=== PATIENT | female | born 1945 | race Two or more races ===

== ENCOUNTER 2016-11-21 12:31 | Emergency (ER) | payer OTHER ==
[~2016-11-21] VITALS: Ht 162.6 cm; Wt 81.2 kg
[~2016-11-21 12:31] MED LIST: ALBU18HF2 INH; GLIM2TAB2 PO; METF10002 PO
[2016-11-21] MEDS ORDERED: IV SET PRIMARY PUMP SET 1 EA INFUS.SET MC ONE (12:57)
[2016-11-21] MEDS ORDERED: IV NS 0.9% 1,000 ML ONE (12:57)
[2016-11-21 13:00] LABS: BASOPHILS # (AUTO) 0.3 /CMM (0.0-0.2); DIFF TOTAL % 100 %; EOSINOPHILS # (AUTO) 0.1 /CMM (0.0-0.7); EOSINOPHILS % (AUTO) 1.2 % (0.0-6.0); HEMATOCRIT 35 % (33-45); HEMOGLOBIN 11.4 g/dL (11.5-14.8); LYMPHOCYTES # (AUTO) 1.2 /CMM (0.8-4.8); LYMPHOCYTES % (AUTO) 14.2 % (20.0-44.0); MEAN CORPUSCULAR HEMOGLOBIN 28 PG (26.0-33.0); MEAN CORPUSCULAR HGB CONC 32 g/dl (31.0-36.0); MEAN CORPUSCULAR VOLUME 87 fL (82-100); MONOCYTES # (AUTO) 0.6 /CMM (0.1-1.30); MONOCYTES % (AUTO) 6.6 % (2.0-12.0); NEUTROPHILS # (AUTO) 6.4 /CMM (1.8-8.9); PLATELET COUNT (AUTO) 223 /CMM (150-450); RED BLOOD CELL COUNT(AUTO) 4.05 MIL/uL (4.0-5.2); WHITE BLOOD COUNT (AUTO) 8.6 K/uL (4.3-11.0)
[2016-11-21] MEDS ORDERED: IV NS 0.9% 1,000 ML BAG IV ONE (13:00)
[2016-11-21 13:10] LABS: ANION GAP 14 (5-14); CARBON DIOXIDE 26 mmol/L (21-32); CHLORIDE 96 mmol/L (98-107); CREATININE 0.8 mg/dL (0.6-1.3); GLUCOSE 227 mg/dL (74-106); POTASSIUM 4.8 mmol/L (3.5-5.1); SODIUM SERUM 132 mmol/L (136-145); UREA NITROGEN, BLOOD 15 mg/dL (7-18)
[2016-11-21 13:15] LABS: ALANINE AMINOTRANSFERASE 35 U/L (12-78); ALBUMIN 2.2 g/dL (3.4-5.0); ASPARTATE AMINOTRANSFERASE 47 U/L (15-37); BILIRUBIN,DIRECT 0.5 mg/dL (0.0-0.2); BILIRUBIN,TOTAL 1.1 mg/dL (0.2-1.0); INDIRECT BILIRUBIN 0.6 mg/dL (0.0-1.1); TOTAL PROTEIN, SERUM 8.2 g/dL (6.4-8.2)
[2016-11-21 13:18] LABS: TROPONIN I < 0.017 ng/mL (0.00-0.056)
[2016-11-21 13:26] LABS: INR 1.17 (0.87-1.13); PROTHROMBIN TIME 12.3 SECS (9.5-12.7)
[2016-11-21 13:36] LABS: LACTIC ACID 2.3 mmol/L (0.4-2.0)
[2016-11-21 13:47] LABS: KETONES,URINE TRACE (NEGATIVE); LEUKOCYTE ESTERASE ,URINE TRACE (NEGATIVE)
[2016-11-21 13:51] LABS: ADD UA MICROSCOPIC YES
[2016-11-21 13:55] LABS: ADD URINE CULTURE NO
[2016-11-21 13:56] LABS: *LACTIC ACID REFLEX FLAG YES
[2016-11-21 13:56] LABS: HYALINE CASTS, URINE Few /LPF (None Seen); MUCUS,URINE Few /LPF (None Seen)
[2016-11-21 14:45] VITALS: BP 127/71
== END 2016-11-21 14:46 | disposition home or self-care (01) ==
LOC: ER 12:33
DX: R53.1 Weakness (principal); E11.9 Type 2 diabetes mellitus without complications; I10 Essential (primary) hypertension; R79.1 Abnormal coagulation profile; Z90.49 Acquired absence of other specified parts of digestive tract
CPT/HCPCS: 36415; 71010; 80048; 80076; 81001; 82962; 83605; 84484; 85025; 85730; 87040 ×2; 93005; 96360; 99285; A4606; J7030; Z7610; 81000-TC

== ENCOUNTER 2017-06-11 19:09 | Emergency (ER) | payer OTHER ==
[~2017-06-11] VITALS: Ht 160 cm; Wt 83.9 kg
--- NOTE | 2017-06-11 19:22 | NUR ---
PT AMBULATORY TO ER BED 12. C/O DIFFUSE ABDOMINAL PAIN W/ N/V X 5 DAYS AFTER RETURNING FROM [place]. PT TEMP WAS 102.4 DENTAL HYGIENIST MOBILE COORDINATOR. GOWNED AND PLACED ON MONITOR. NAD NOTED AWAITING MD BARRON.
--- NOTE | 2017-06-11 19:42 | NUR ---
DR WILL AT BEDSIDE FOR EVAL.
[2017-06-11] MEDS ORDERED: ACETAMINOPHEN ES 500 MG TABLET PO ONE (20:00)
[2017-06-11] MEDS ORDERED: MORPHINE SULFATE INJ 2 MG/ML DISP.SYRIN IV ONE (20:00)
[2017-06-11] MEDS ORDERED: ONDANSETRON HCL/PF 4 MG/2 ML VIAL IVP ONE (20:00)
[2017-06-11] MEDS ORDERED: IV NS 0.9% 1,000 ML BAG IV ONE (20:00)
--- NOTE | 2017-06-11 20:00 | NUR ---
IV LINE STARTED BLOOD DRAWN AND SENT TO LAB.
[2017-06-11] MEDS ORDERED: ONDANSETRON HCL/PF 4 MG/2 ML VIAL ONE (20:03)
[2017-06-11] MEDS ORDERED: MORPHINE SULFATE INJ 4 MG/ML DISP.SYRIN ONE ×2 (20:03→20:05)
[2017-06-11 20:04] LABS: BASOPHILS % (AUTO) 0.3 % (0.0-2.0); EOSINOPHILS % (AUTO) 0.4 % (0.0-6.0); HEMATOCRIT 34 % (33-45); HEMOGLOBIN 11.4 g/dL (11.5-14.8); LYMPHOCYTES # (AUTO) 0.7 /CMM (0.8-4.8); LYMPHOCYTES % (AUTO) 11.3 % (20.0-44.0); MEAN CORPUSCULAR HEMOGLOBIN 29 PG (26.0-33.0); MEAN CORPUSCULAR HGB CONC 33 g/dl (31.0-36.0); MEAN CORPUSCULAR VOLUME 88 fL (82-100); MONOCYTES # (AUTO) 0.3 /CMM (0.1-1.30); MONOCYTES % (AUTO) 4.9 % (2.0-12.0); NEUTROPHILS # (AUTO) 5.4 /CMM (1.8-8.9); NEUTROPHILS % (AUTO) 83.1 % (43.0-81.0); PLATELET COUNT (AUTO) 106 /CMM (150-450); RDW COEFFICIENT OF VARIATION 14.2 (11.5-15.0); RED BLOOD CELL COUNT(AUTO) 3.91 MIL/uL (4.0-5.2); WHITE BLOOD COUNT (AUTO) 6.4 K/uL (4.3-11.0)
[2017-06-11 20:14] LABS: CALCIUM, SERUM 8.6 mg/dL (8.5-10.1); CARBON DIOXIDE 29 mmol/L (21-32); CHLORIDE 97 mmol/L (98-107); CREATININE 1.3 mg/dL (0.6-1.3); GLUCOSE 280 mg/dL (74-106); SODIUM SERUM 134 mmol/L (136-145); UREA NITROGEN, BLOOD 14 mg/dL (7-18)
[2017-06-11 20:18] LABS: INR 1.18 (0.87-1.13); PROTHROMBIN TIME 12.4 SECS (9.5-12.7)
[2017-06-11 20:22] LABS: TROPONIN I < 0.017 ng/mL (0.00-0.056)
[2017-06-11 20:25] LABS: ALANINE AMINOTRANSFERASE 21 U/L (12-78); ALBUMIN 2.7 g/dL (3.4-5.0); ALKALINE PHOSPHATASE 57 U/L (46-116); ASPARTATE AMINOTRANSFERASE 30 U/L (15-37); BILIRUBIN,DIRECT 0.7 mg/dL (0.0-0.2); BILIRUBIN,TOTAL 1.6 mg/dL (0.2-1.0); TOTAL PROTEIN, SERUM 7.8 g/dL (6.4-8.2)
[2017-06-11] MEDS ORDERED: ACETAMINOPHEN ES 500 MG TABLET ONE (21:06)
[2017-06-11 22:23] LABS: APPEARANCE,URINE SL CLOUDY (CLEAR); BILIRUBIN,URINE 2+ (NEGATIVE); BLOOD, URINE 3+ Ery/uL (NEGATIVE); COLOR,URINE DARK YELLO (YELLOW); KETONES,URINE 1+ (NEGATIVE); LEUKOCYTE ESTERASE ,URINE NEGATIVE (NEGATIVE); NITRITE, URINE NEGATIVE (NEGATIVE); PH,URINE 6.5 (5.0-8.0); PROTEIN,URINE 2+ mg/dl (NEGATIVE); UGLUCOSE 2+ mg/dL (NEGATIVE)
--- NOTE | 2017-06-11 22:29 | NUR ---
U/S TECH AT BEDSIDE FOR GALLBLADDER U/S.
[2017-06-11 22:33] LABS: RBC,URINE 81-100 /HPF (0-2)
[2017-06-11 22:34] LABS: BACTERIA,URINE Rare /HPF (None Seen); SQUAMOUS EPITHELIAL CELL,UR Moderate /HPF (None Seen)
[2017-06-11 23:41] VITALS: BP 112/66
--- NOTE | 2017-06-11 23:41 | NUR ---
Patient discharged to home in stable condition. Written and verbal after care instructions given. Patient verbalizes understanding of instruction.IV removed. Catheter intact and site benign. Pressure and 4x4 applied to site. No bleeding noted.
== END 2017-06-11 23:42 | disposition home or self-care (01) ==
LOC: ER 19:13
DX: R10.84 Generalized abdominal pain (principal); E11.9 Type 2 diabetes mellitus without complications; I10 Essential (primary) hypertension; R31.29 Other microscopic hematuria; Z90.49 Acquired absence of other specified parts of digestive tract; Z90.710 Acquired absence of both cervix and uterus
CPT/HCPCS: 36415; 71010; 71250; 74176; 76705; 80048; 80076; 81001; 83605; 84484; 85025; 85730; 87040 ×2; 87086; 93005; 96361; 96374; 96375; 99285; A4606; J2270; J2405; J7030; J7040; Z7610; 81000-TC

== ENCOUNTER 2018-03-12 01:32 | Inpatient (IN) | payer OTHER ==
[~2018-03-12] VITALS: Ht 165.1 cm; Wt 83.5 kg
[2018-03-12] VITALS (11 sets, daily range): BP systolic 104–133; BP diastolic 51–79
[~2018-03-12 01:32] MED LIST changes: +METF-442 PO; -METF10002 PO
--- NOTE | 2018-03-12 01:44 | NUR ---
PT BIBFAMILY C/O GRADUAL ONSET SOB X NAUSEA X 2 WKS. PT AOX3 PUERTO RICAN SPEAKING. SON AT BEDSIDE FOR TRANSLATION. RR EVEN AND UNLABORED. NO SOB NOTED AT THIS TIME. PT NOTED AT 89% ON ROOM AIR, PLACED ON 2LPM VIA NC. PT GOWNED AND PLACED ON MONITOR. DR WILL AT BEDSIDE FOR EVAL.
[2018-03-12] MEDS ORDERED: ASPIRIN 325 MG TABLET ONE (01:58)
[2018-03-12] MEDS ORDERED: FUROSEMIDE 40 MG/4 ML VIAL ONE (01:58)
[2018-03-12] MEDS ORDERED: NITROGLYCERIN PACKET 1 GM PACKET ONE (01:58)
[2018-03-12] MEDS ORDERED: NITROGLYCERIN PACKET 1 GM PACKET TD ONE (02:00)
[2018-03-12] MEDS ORDERED: FUROSEMIDE 40 MG/4 ML VIAL IV ONE (02:00)
[2018-03-12] MEDS ORDERED: ASPIRIN 325 MG TABLET PO ONE (02:00)
--- NOTE | 2018-03-12 02:13 | NUR ---
RADIOLOGY AT BEDSIDE FOR CXR
[2018-03-12 02:30] LABS: BASOPHILS % (AUTO) 0.3 % (0.0-2.0); LYMPHOCYTES # (AUTO) 1.4 /CMM (0.8-4.8); LYMPHOCYTES % (AUTO) 12.4 % (20.0-44.0); MEAN CORPUSCULAR HGB CONC 34 g/dl (31.0-36.0); MEAN CORPUSCULAR VOLUME 89 fL (82-100); MONOCYTES # (AUTO) 0.5 /CMM (0.1-1.30); MONOCYTES % (AUTO) 4.9 % (2.0-12.0); NEUTROPHILS # (AUTO) 8.9 /CMM (1.8-8.9); NEUTROPHILS % (AUTO) 81.4 % (43.0-81.0); PLATELET COUNT (AUTO) 156 /CMM (150-450); RDW COEFFICIENT OF VARIATION 15.7 (11.5-15.0); RED BLOOD CELL COUNT(AUTO) 2.08 MIL/uL (4.0-5.2); WHITE BLOOD COUNT (AUTO) 10.9 K/uL (4.3-11.0)
[2018-03-12 02:36] LABS: HEMATOCRIT 19 % (33-45); HEMOGLOBIN 6.2 g/dL (11.5-14.8)
--- NOTE | 2018-03-12 02:36 | NUR ---
MIC ( [facility] ) [phone]
[2018-03-12 02:49] LABS: EOSINOPHILS % (MANUAL) 2 % (0-4); INR 1.06 (0.87-1.13); LYMPHOCYTES % (MANUAL) 11 % (16-48); MONOCYTES % (MANUAL) 3 % (0-11.0); NEUTROPHILS % (MANUAL) 84 (42-76)
--- NOTE | 2018-03-12 02:52 | NUR ---
LAB AT BEDSIDE FOR TYPE AND SCREEN DRAW
[2018-03-12 03:05] LABS: TROPONIN I < 0.017 ng/mL (0.00-0.056)
[2018-03-12 03:51] LABS: CARBON DIOXIDE 19 mmol/L (21-32); CHLORIDE 105 mmol/L (98-107); POTASSIUM 4.9 mmol/L (3.5-5.1); SODIUM SERUM 139 mmol/L (136-145)
[2018-03-12 03:52] LABS: CALCIUM, SERUM 8.8 mg/dL (8.5-10.1); CREATININE 5.3 mg/dL (0.6-1.3); UREA NITROGEN, BLOOD 62 mg/dL (7-18)
[2018-03-12 03:53] LABS: ALANINE AMINOTRANSFERASE 16 U/L (12-78); ALBUMIN 2.6 g/dL (3.4-5.0); ALKALINE PHOSPHATASE 48 U/L (46-116)
[2018-03-12 03:54] LABS: TOTAL PROTEIN, SERUM 7.7 g/dL (6.4-8.2)
--- NOTE | 2018-03-12 03:59 | NUR ---
DR. WILL SPOKE TO REDD GEETA REGARDING ADMISSION.
[2018-03-12 04:07] LABS: ASPARTATE AMINOTRANSFERASE 23 U/L (15-37); BILIRUBIN,DIRECT 0.3 mg/dL (0.0-0.2); BILIRUBIN,TOTAL 1.1 mg/dL (0.2-1.0); GLUCOSE 188 mg/dL (74-106)
--- NOTE | 2018-03-12 04:28 | NUR ---
1 UNIT PRBC TRANSFUSING ORDERED. PT PLACED ON MONITOR.
[2018-03-12 04:29] LABS: B-TYPE NATRIURETIC PEPTIDE 8953 PG/ML (0-125)
[2018-03-12] MEDS ORDERED: ONDANSETRON HCL/PF 4 MG/2 ML VIAL IVP PRN (04:30)
[2018-03-12] MEDS ORDERED: DEXTROSE 50%-WATER 50 ML DISP.SYRIN IV PRN (04:30)
[2018-03-12] MEDS ORDERED: ACETAMINOPHEN 325 MG TABLET PO PRN (04:30)
[2018-03-12] MEDS ORDERED: MAGNESIUM HYDROXIDE 30 ML UDC PO PRN (04:30)
[2018-03-12] MEDS ORDERED: MAG HYDROX/AL HYDROX/SIMETH 30 ML UDC PO PRN (04:30)
[2018-03-12] MEDS ORDERED: ZOLPIDEM TARTRATE 5 MG TABLET PO PRN (04:30)
--- NOTE | 2018-03-12 04:35 | NUR ---
REPORT GIVEN TO BIENVENIDO RODRIGUEZ FOR BILLY BED 107
--- NOTE | 2018-03-12 04:43 | NUR ---
PT WITH IV BLOOD TRANSFUSION, PT TOLERATING WELL, NO ASE NOTED AT THIS TIME. VSS.
--- NOTE | 2018-03-12 04:58 | NUR ---
PT TRANSFERRED PER ACLS PROTOCOL.
--- NOTE | 2018-03-12 07:10 | NUR ---
RN NOTES RECEIVED PT ON BED, A/Ox3, MOLDOVAN SPEAKING , ON 2L O2 N/C , NO SOB NOTED, RESPIRATION EVEN AND UNLABORED AT THIS TIME , ON TELE ST , HR IN 110'S, ONE UNIT OF PRBC RUNNING VIA R HAND IV SITE G 20 , IV SITE CDI, SR UP x3, CALL LIGHT WITHIN EASY REACH, BED LOCKED AND IN LOWEST POSITION , CONTINUE TO MONITOR PT CLOSELY AND NOTIFY MD FOR ANY SIGNIFICANT CHANGES .
[2018-03-12] MEDS: BLOOD SUGAR DIAGNOSTIC 1 EACH STRIP IN SCH ×4 (07:30→23:21)
--- NOTE | 2018-03-12 07:30 | NUR ---
RN NOTES ONE UNIT OF RPBC INFUSED , PT STABLE , CONTINUE TO MONITOR.
[2018-03-12] MEDS: PANTOPRAZOLE 40 MG VIAL IV SCH (08:38)
--- NOTE | 2018-03-12 10:30 | NUR ---
RN NOTES DR LEWIS NOTIFED REGARDING H/H 6.12/25 , NO NEW ORDER RECEIVED . CONTINUE TO MONITOR .
[2018-03-12 10:32] LABS: HEMOGLOBIN 6.3 g/dL (11.5-14.8)
[2018-03-12] MEDS ORDERED: BUMETANIDE INJ 8 MG in IV NS 0.9% 48 ML IV ONE (11:15)
[2018-03-12] MEDS: INSULIN REGULAR, HUMAN 100 UNIT/ML 3 ML VIAL SQ PRN ×2 (11:58→17:30)
[2018-03-12 12:00] LABS: MAGNESIUM 2.5 mg/dL (1.8-2.4); THYROID STIMULATING HORMONE 1.62 uIU/mL (0.358-3.74)
--- NOTE | 2018-03-12 13:57 | NUR ---
RN NOTES ONE UNIT OF PRBC STARTED PT TOLERATING WELL, CONTINUE TO MONITOR .
[2018-03-12 14:48] LABS: APPEARANCE,URINE CLEAR (CLEAR); BILIRUBIN,URINE NEGATIVE (NEGATIVE); BLOOD, URINE 3+ Ery/uL (NEGATIVE); COLOR,URINE YELLOW (YELLOW); KETONES,URINE NEGATIVE (NEGATIVE); LEUKOCYTE ESTERASE ,URINE NEGATIVE (NEGATIVE); NITRITE, URINE NEGATIVE (NEGATIVE); PROTEIN,URINE 1+ mg/dl (NEGATIVE); UGLUCOSE NEGATIVE (NEGATIVE); UROBILINOGEN,URINE 0.2 EU/dL (0.2)
[2018-03-12 15:38] LABS: RBC,URINE 81-100 /HPF (0-2)
[2018-03-12 15:40] LABS: BACTERIA,URINE Few /HPF (None Seen); SQUAMOUS EPITHELIAL CELL,UR Moderate /HPF (None Seen)
--- NOTE | 2018-03-12 16:00 | NUR ---
Patient speaks Albanian, spoke with son Dilshad [phone], patient lives locally with family with few steps to entrance. Prior to admission, patient was ambulating with a walker and is semi-independent with adl's. She owns a walker and wheelchair, no homehealth reported. Family was provided with [facility] info provided to family per request Addendum: 03/12/18 at 1601 by SETH WOLFE RN Amended: Links added.
[2018-03-12] MEDS ORDERED: EPOETIN ALFA (20,000 UNIT) 20,000 UNIT/ML VIAL SQ ONE (16:30)
[2018-03-12 16:35] LABS: CREATININE, URINE 63.3 MG/DL (30.0-125.0); URINE TOTAL PROTEIN 68.7 mg/dL (0-11.9)
--- NOTE | 2018-03-12 17:00 | NUR ---
RN NOTES ONE UNIT OF PRBC INFUSED , PT TOLERATED WELL, CONTINUE TO MONITOR .
[2018-03-12 17:17] LABS: OCCULT BLOOD STOOL NEGATIVE (NEGATIVE)
[2018-03-12 17:48] LABS: ABG BASE EXCESS -4.2 mmol/L; ABG OXYGEN SATURATION 91.3 % (92.0-98.5); ABG PCO2 31.7 mmHg (35.0-45.0); ABG PH 7.411 (7.350-7.450); ABG PO2 63.8 mmHg (75.0-100.0); AaDO2 127.3 mmHg; COHb 0.2 % (0.5-1.5); MetHb 0.4 % (0.0-1.5); O2Hb 90.8 % (94.0-97.0); SITE, ABG Right Brachial; VENT MODE, BG NASAL CANNULA
--- NOTE | 2018-03-12 18:55 | NUR ---
RN NOTES VSS STABLE , SUPPORTIVE FAMILY AT THE BEDSIDE, PT OUT OF BED TO BATHROOM WITH ASSIST , NO SIGNIFICANT CHANGES NOTED ON THIS SHIFT .WILL ENDOSE TO FINANCIAL INSTITUTION BRANCH MANAGER NURSE FOR CARLOS
[2018-03-12 19:40] LABS: HEMOGLOBIN 7.6 g/dL (11.5-14.8)
[2018-03-12] MEDS: HYDROCODONE/APAP 5/325MG 1 EACH TABLET PO PRN (21:01)
[2018-03-12] MEDS: ALBUTEROL FS 2.5 MG/3 ML VIAL.NEB NEB PRN (21:07)
[2018-03-12] MEDS: IPRATROPIUM NEB FS 0.5 MG/2.5 ML AMPUL.NEB NEB PRN (21:07)
[2018-03-12] MEDS: INSULIN GLARGINE, 100 UNIT/ML CARTRIDGE SQ SCH (22:00)
--- NOTE | 2018-03-12 22:00 | NUR ---
RN NOTE BS 88 HELD LANTUS 20 UNITS. WILL CONTINUE TO MONITOR.
[2018-03-13] VITALS: BP 106/52
[2018-03-13] MEDS: HYDROCODONE/APAP 5/325MG 1 EACH TABLET PO PRN ×3 (03:46→21:29)
[2018-03-13 04:00] VITALS: BP 106/50
[2018-03-13 06:34] LABS: BASOPHILS % (AUTO) 0.3 % (0.0-2.0); EOSINOPHILS % (AUTO) 1.3 % (0.0-6.0); HEMATOCRIT 21 % (33-45); HEMOGLOBIN 7.2 g/dL (11.5-14.8); LYMPHOCYTES # (AUTO) 0.6 /CMM (0.8-4.8); LYMPHOCYTES % (AUTO) 6.3 % (20.0-44.0); MEAN CORPUSCULAR HGB CONC 34 g/dl (31.0-36.0); MEAN CORPUSCULAR VOLUME 88 fL (82-100); MONOCYTES # (AUTO) 0.4 /CMM (0.1-1.30); MONOCYTES % (AUTO) 4.2 % (2.0-12.0); NEUTROPHILS # (AUTO) 7.8 /CMM (1.8-8.9); NEUTROPHILS % (AUTO) 87.9 % (43.0-81.0); PLATELET COUNT (AUTO) 100 /CMM (150-450); RDW COEFFICIENT OF VARIATION 14.9 (11.5-15.0); RED BLOOD CELL COUNT(AUTO) 2.39 MIL/uL (4.0-5.2); WHITE BLOOD COUNT (AUTO) 8.9 K/uL (4.3-11.0)
[2018-03-13 06:40] LABS: APPEARANCE,URINE SL CLOUDY (CLEAR); BILIRUBIN,URINE NEGATIVE (NEGATIVE); BLOOD, URINE 3+ Ery/uL (NEGATIVE); COLOR,URINE YELLOW (YELLOW); KETONES,URINE NEGATIVE (NEGATIVE); LEUKOCYTE ESTERASE ,URINE TRACE (NEGATIVE); NITRITE, URINE NEGATIVE (NEGATIVE); PROTEIN,URINE 1+ mg/dl (NEGATIVE); UGLUCOSE NEGATIVE (NEGATIVE); UROBILINOGEN,URINE 0.2 EU/dL (0.2)
--- NOTE | 2018-03-13 07:00 | NUR ---
RN NOTES RECEIVED PT ON BED , A/Ox3, NAMIBIAN SPEAKING , ON 6L O2 N/C . NO SOB NOTED, ON TELE ST , HR IN 100'S , L FA IV SITE G 22 AND R HAND IV G 20 SITES , CDI, SUPPORTIVE FAMILY AT THE BEDSIDE, SR UP x3, CALL LIGHT WITHIN EASY REACH, BED LOCKED AND IN LOWEST POSITION . CONTINUE TO MONITOR PT CLOSELY.
[2018-03-13 07:03] LABS: BACTERIA,URINE Few /HPF (None Seen); MUCUS,URINE Few /LPF (None Seen); RBC,URINE 21-50 /HPF (0-2); URINE AMORPHOUS URATE Few /HPF (None Seen)
[2018-03-13 07:15] LABS: ALANINE AMINOTRANSFERASE 13 U/L (12-78); ALBUMIN 2.3 g/dL (3.4-5.0); ALKALINE PHOSPHATASE 34 U/L (46-116); ASPARTATE AMINOTRANSFERASE 14 U/L (15-37); BILIRUBIN,TOTAL 1.2 mg/dL (0.2-1.0); CALCIUM, SERUM 8.2 mg/dL (8.5-10.1); CARBON DIOXIDE 22 mmol/L (21-32); CHLORIDE 105 mmol/L (98-107); CREATININE 6.2 mg/dL (0.6-1.3); GLUCOSE 114 mg/dL (74-106); MAGNESIUM 2.4 mg/dL (1.8-2.4); POTASSIUM 5.1 mmol/L (3.5-5.1); SODIUM SERUM 140 mmol/L (136-145); TOTAL PROTEIN, SERUM 6.5 g/dL (6.4-8.2); UREA NITROGEN, BLOOD 75 mg/dL (7-18)
[2018-03-13 07:20] LABS: CHOLESTEROL 75 mg/dL (<200); CREATINE KINASE, TOTAL 35 U/L (26-192); HDL CHOLESTEROL 18 mg/dL (40-60); LDL 46 mg/dL (0-99); TRIGLYCERIDES 96 mg/dL (30-150)
[2018-03-13 07:34] LABS: IRON, SERUM 33 ug/dl (50-175); TOTAL IRON BINDING CAPACITY 180 ug/dl (250-450)
[2018-03-13] MEDS: PANTOPRAZOLE 40 MG VIAL IV SCH (07:53)
[2018-03-13] MEDS: BLOOD SUGAR DIAGNOSTIC 1 EACH STRIP IN SCH ×4 (07:55→22:00)
[2018-03-13 08:00] VITALS: BP 118/65
[2018-03-13 08:11] LABS: CREATININE, URINE 142.1 MG/DL (30.0-125.0); URINE TOTAL PROTEIN 98.8 mg/dL (0-11.9)
[2018-03-13 09:03] LABS: EOSINOPHIL,URINE None Seen
[2018-03-13] MEDS ORDERED: METOLAZONE 2.5 MG TABLET PO SCH (10:00)
[2018-03-13] MEDS ORDERED: BUMETANIDE INJ 16 MG in IV NS 0.9% 16 ML IV ONE (10:00)
[2018-03-13] MEDS: IV NS 0.9% 1,000 ML IV PRN (11:00)
[2018-03-13] MEDS: INSULIN REGULAR, HUMAN 100 UNIT/ML 3 ML VIAL SQ PRN ×2 (11:50→16:47)
[2018-03-13 16:00] VITALS: BP 113/61
[2018-03-13] MEDS ORDERED: PIPERACILLIN /TAZOBACTAM 3.375 G in IV D5W 50 ML IV SCH (17:00)
--- NOTE | 2018-03-13 17:00 | NUR ---
RN NOTES REDNESS NOTED TO LEFT FA AND R HAND IV SITES , IV SITES REMOVED AND ATTEMPTED TO START IV TWICE , UNSUCCESSFUL , ICU CHARGE NURSE NOTIFED TO OBTAIN IV SITE .
[2018-03-13] MEDS ORDERED: LEVOFLOXACIN 750 MG /D5W 150ML 150 ML IV ONE (18:00)
[2018-03-13] MEDS ORDERED: PIPERACILLIN /TAZOBACTAM 2.25 G in IV D5W 50 ML IV SCH (18:00)
--- NOTE | 2018-03-13 18:02 | NUR ---
I, mk broderick, the manager technical support attempted to take the pt for a ct scan of the chest. Pt constantly coughs and is unable to lay down flat on her back. Nurse was notified. Try to do it tomorrow.
--- NOTE | 2018-03-13 18:52 | NUR ---
RN NOTES PT AT REST, NO DISTRESS NOTED , WILL ENDORSE TO STRIPER MACHINE NURSE FOR CARLOS.
--- NOTE | 2018-03-13 19:30 | NUR ---
RN/MS NOTED: RECEIVED PT. IN BED W/ FAMILY MEMBERS PRESENT BY BEDSIDE. A/O X 3. SPEAKS LATVIAN ONLY. FAMILY MEMBERS HERE TO TRANSLATE. W/ O2 @ 6LPM VIA SIMPLE MASK SAT. 90-91%. W/ BSC AND USES BEDPAN. NO IV ACCESS AT PRESENT. DENIES ANY PAIN OR SOB AT PRESENT. CALL LIGHT W/ REACH. WILL CONTINUE TO MONITOR.
[2018-03-13 20:00] VITALS: BP 128/66
[2018-03-13] MEDS: ALBUTEROL FS 2.5 MG/3 ML VIAL.NEB NEB PRN (21:09)
[2018-03-13] MEDS: IPRATROPIUM NEB FS 0.5 MG/2.5 ML AMPUL.NEB NEB PRN (21:09)
[2018-03-13] MEDS ORDERED: ALPRAZOLAM 0.25 MG TABLET PO ONE (22:00)
--- NOTE | 2018-03-13 23:00 | NUR ---
RN/ MS NOTES: LH G 24 INSERTED BY CHARGE NURSE. IV ATB. GIVEN. CALLED PHARMACY REGARDING THE TIMING OF THE ATB. PT. C/O FEELING ANXIOUS. REQUESTING MEDICATION. GOT XANAX 0.25MG X 1 PO. GIVEN . WILL CONTINUE TO MONITOR.
[2018-03-14] MEDS: INSULIN GLARGINE, 100 UNIT/ML CARTRIDGE SQ SCH ×2 (00:32→21:21)
[2018-03-14] MEDS: IV NS 0.9% 1,000 ML IV PRN ×2 (03:45→18:14)
[2018-03-14 04:00] VITALS: BP 119/52
--- NOTE | 2018-03-14 07:10 | NUR ---
MS RN OPENING NOTES RECEIVED PT IN BED IN SEMI JACKSON POSITION, ALERT AND VERBALLY RESPONSIVE. NO SOB NOTED, ON 6LPM O2 VIA NC, NO C/O PAIN, S/SX OF BLEEDING, WITH ONGOING IVF NS @100ML/HR ON L WRIST, PATENT AND INTACT, NO S/SX OF INFECTION, SAFETY MEASURES OBSERVED, CALL LIGHT WITHIN REACH, WILL CONT TO MONITOR
--- NOTE | 2018-03-14 07:18 | NUR ---
RN/MS NOTES: NO ACUTE CHANGES NOTED DURING THIS SHIFT. REPORT GIVEN TO AM NURSE FOR CARLOS.
[2018-03-14 08:00] VITALS: BP 131/60
[2018-03-14] MEDS ORDERED: PIPERACILLIN /TAZOBACTAM 2.25 G in IV D5W 50 ML IV SCH (08:00)
[2018-03-14] MEDS: PIPERACILLIN /TAZOBACTAM 2.25 G in IV D5W 50 ML IV SCH ×3 (08:21→21:44)
[2018-03-14] MEDS: BLOOD SUGAR DIAGNOSTIC 1 EACH STRIP IN SCH ×4 (08:21→21:15)
[2018-03-14] MEDS: INSULIN REGULAR, HUMAN 100 UNIT/ML 3 ML VIAL SQ PRN ×4 (08:23→21:18)
[2018-03-14] MEDS: PANTOPRAZOLE 40 MG VIAL IV SCH (08:27)
[2018-03-14 08:43] LABS: EOSINOPHILS % (AUTO) 0.1 % (0.0-6.0); HEMATOCRIT 22 % (33-45); HEMOGLOBIN 7.4 g/dL (11.5-14.8); LYMPHOCYTES # (AUTO) 0.7 /CMM (0.8-4.8); LYMPHOCYTES % (AUTO) 6.5 % (20.0-44.0); MEAN CORPUSCULAR HGB CONC 34 g/dl (31.0-36.0); MEAN CORPUSCULAR VOLUME 88 fL (82-100); MONOCYTES # (AUTO) 0.4 /CMM (0.1-1.30); MONOCYTES % (AUTO) 3.7 % (2.0-12.0); NEUTROPHILS # (AUTO) 9.8 /CMM (1.8-8.9); NEUTROPHILS % (AUTO) 89.7 % (43.0-81.0); PLATELET COUNT (AUTO) 136 /CMM (150-450); RDW COEFFICIENT OF VARIATION 15.5 (11.5-15.0); RED BLOOD CELL COUNT(AUTO) 2.44 MIL/uL (4.0-5.2)
[2018-03-14 08:52] LABS: CALCIUM, SERUM 8.4 mg/dL (8.5-10.1); CARBON DIOXIDE 21 mmol/L (21-32); CHLORIDE 103 mmol/L (98-107); CREATININE 6.8 mg/dL (0.6-1.3); GLUCOSE 191 mg/dL (74-106); POTASSIUM 5.2 mmol/L (3.5-5.1); SODIUM SERUM 140 mmol/L (136-145)
[2018-03-14 08:55] LABS: UREA NITROGEN, BLOOD 105 mg/dL (7-18)
--- NOTE | 2018-03-14 09:00 | NUR ---
RN NOTES SON AT BEDSIDE AND ASKING IF PT CAN HAVE MEDICINE FOR ANXIETY, PT APPEARS ANXIOUS, INSTRUCTED DEEP BREATHING EXERCISE, PT ABLE TO CALM, NO C/O PAIN. VS STABLE. WILL CONT TO MONITOR RECEIVED CRITICAL LAB VALUE OF BUN = 105, CREA=6.8 DR CORDOVA ON FLOOR, INFORMED ABOUT PT'S SON REQUEST ABOUT ANTIANXIETY MEDS, DR CORDOVA SAYS, "NO/AVOID ANTIANXIETY BECAUSE PT IS MORE OF HAVING SOB AND NOT ANXIETY" ALSO INFORMED DR CORDOVA RE: CRITICAL LAB RESULTS WITH NEW ORDER FOR NOW AND SAYS, "FOLLOW UP ON CHEST CT WITHOUT CONTRAST, MAKE IT STAT." ORDERS NOTED AND CARRIED OUT PT/PT'S SON MADE AWARE RE: CONCERNS OF ANTIANXIETY MEDS, BOTH UNDERSTANDS AND AGREE
--- NOTE | 2018-03-14 09:30 | NUR ---
RN MEDS RADIOLOGY PICKED UP PT FOR CT IN STABLE CONDITION
--- NOTE | 2018-03-14 09:45 | NUR ---
RN NOTES PT CAME BACK FROM CT PROCEDURE IN STABLE CONDITION. PT TOLERATED PROCEDURE, NO C/O PAIN, NO SOB WILL CONT TO MONITOR
--- NOTE | 2018-03-14 11:50 | NUR ---
RN NOTES RECEIVED CALL FROM RADIOLOGY AND SPOKE WITH BRANDY, MENTIONED THAT NEEDLE BIOPSY SHOULD BE HOLD PT'S RESP IS NOT STABLE, INFORMED DR. VAZQUEZ AND DR. DEBBIE LEWIS SAYS, INFORMED WHO MADE THE ORDER DR. VAZQUEZ, OK TO CANCEL PROCEDURE, AND MADE NEW ORDER: SOLU-MEDROL 250 MG IV TID AND ACCUCHECK Q AC/HS WITH AGGRESSIVE SLIDING SCALE, ANCA PANEL AND C3, C4 STAT, OK TO RESUME DIET
--- NOTE | 2018-03-14 12:00 | NUR ---
RN NOTES MIDLINE INSERTED ON RIGHT BRACHIAL GAUGE 18, PT TOLERATED PROCEDURE WELL, NO S/SX OF BLEEDING
[2018-03-14 12:13] LABS: *SPE A/G RATIO 0.8 (0.7-1.7); *SPE ALBUMIN 2.6 g/dL (2.9-4.4); *SPE ALPHA-1-GLOBULIN 0.4 g/dL (0.0-0.4); *SPE ALPHA-2-GLOBULIN 0.6 g/dL (0.4-1.0); *SPE BETA GLOBULIN 1.3 g/dL (0.7-1.3); *SPE GLOBULIN, TOTAL 3.1 g/dL (2.2-3.9); *SPE M-SPIKE 0.8 g/dL (Not Observed); *SPEGAMMA GLOBULIN 0.8 g/dL (0.4-1.8)
[2018-03-14] MEDS: methylPREDNISolone SOD SUCC 125 MG/2ML VIAL IV SCH ×2 (12:44→16:28)
[2018-03-14 16:00] VITALS: BP 111/55
--- NOTE | 2018-03-14 19:23 | NUR ---
RN CLOSING NOTES PT IN STABLE CONDITION, NO SOB, NO S/SX OF BLEEDING, NO C/O PAIN, SAFETY MEASURES OBSERVED AT ALL TIMES, ALL NEEDS ATTENDED, ENDORSED TO PM SHIFT NURSE FOR CARLOS
--- NOTE | 2018-03-14 19:30 | NUR ---
RN/MS NOTES: RECEIVED PT. IN BED W/ HOB ELEVATED. W/ SONS BY BEDSIDE. A/O X 3. SPEAKS ZIMBABWEAN ONLY. W/ O2 @ 5LPM VIA NC SAT. 90-91%. CONTINENT OF B/B. USES BSC OR BEDPAN. W/ MID LINE RIGHT BRACHIAL G 18 PATENT AND INTACT W/ NO S/S OF INFECTION OR INFILTRATION NOTED. W/ NS @ 100 ML /HR. DENIES ANY C/O CHEST PAIN OR SOB AT PRESENT. WILL CONTINUE TO MONITOR.
[2018-03-14 20:50] VITALS: BP 105/63
--- NOTE | 2018-03-14 23:40 | NUR ---
RN/ MS NOTES: DNP. CARRERA TABBY CAME IN AND DISCUSSED THAT HE WAS GOING TO INSERT HD CATH. CALLED MIC VARGAS [phone] @ 11:25 PM FOR A CONSENT. CHARGE NURSE PATRICK Peace RN. MADE AWARE.
[2018-03-15] MEDS: PIPERACILLIN /TAZOBACTAM 2.25 G in IV D5W 50 ML IV SCH ×3 (04:19→21:47)
[2018-03-15 04:43] VITALS: BP 116/39
[2018-03-15 06:33] LABS: EOSINOPHILS % (AUTO) 0.1 % (0.0-6.0); LYMPHOCYTES # (AUTO) 0.6 /CMM (0.8-4.8); LYMPHOCYTES % (AUTO) 5.6 % (20.0-44.0); MEAN CORPUSCULAR HGB CONC 34 g/dl (31.0-36.0); MEAN CORPUSCULAR VOLUME 90 fL (82-100); MONOCYTES # (AUTO) 0.1 /CMM (0.1-1.30); MONOCYTES % (AUTO) 0.9 % (2.0-12.0); NEUTROPHILS # (AUTO) 9.5 /CMM (1.8-8.9); NEUTROPHILS % (AUTO) 93.4 % (43.0-81.0); PLATELET COUNT (AUTO) 112 /CMM (150-450); RDW COEFFICIENT OF VARIATION 15.9 (11.5-15.0); RED BLOOD CELL COUNT(AUTO) 2.05 MIL/uL (4.0-5.2); WHITE BLOOD COUNT (AUTO) 10.2 K/uL (4.3-11.0)
[2018-03-15 06:48] LABS: HEMATOCRIT 18 % (33-45); HEMOGLOBIN 6.2 g/dL (11.5-14.8)
[2018-03-15 06:51] LABS: CALCIUM, SERUM 8.1 mg/dL (8.5-10.1); CARBON DIOXIDE 20 mmol/L (21-32); CHLORIDE 106 mmol/L (98-107); CREATININE 6.9 mg/dL (0.6-1.3); GLUCOSE 159 mg/dL (74-106); POTASSIUM 4.9 mmol/L (3.5-5.1); SODIUM SERUM 143 mmol/L (136-145)
--- NOTE | 2018-03-15 06:56 | NUR ---
RN/MS NOTES: CRITICAL LAB H/H 6.11/[address] DEANDRE RodríguezP. NIGHT CHARGE/MORNING CHARGE NURSE AWARE.
[2018-03-15 06:57] LABS: UREA NITROGEN, BLOOD 124 mg/dL (7-18)
--- NOTE | 2018-03-15 07:06 | NUR ---
MS RN OPENING NOTES RECEIVED REPORT FROM VANE DARDEN NURSE CRITICAL LAB VALUE OF H/H: 6.2, DNP DEANDRE RESENDEZ AWARE, AWAITING FOR NEW ORDER. RECEIVED PT IN BED, ALERT AND VERBALLY RESPONSIVE, PT DENIES SOB AND SAYS SHE'S HAVING ANXIETY, INSTRUCTED TO DO DBE. APPEARS PALE, DENIES PAIN/CHEST PAIN, NO SIGNS OF BLEEDING. WITH ONGOING IVF NS @ 100 ML/HR ON R BRACHIAL MIDLINE, INTACT AND PATENT. RH SALINE LOCK INTACT AND PATENT. SAFETY PRECAUTIONS OBSERVED. CALL LIGHT WITHIN REACH, WILL CONTINUE TO MONITOR.
--- NOTE | 2018-03-15 07:06 | NUR ---
RN/MS NOTES: REPORT GIVEN TO AM NURSE FOR F/U H/H. INFORMED THAT AM CHARGE NURSE IS AWARE.
--- NOTE | 2018-03-15 07:10 | NUR ---
RN OPENING NOTES RECEIVED PT IN BED, ALERT, NO SOB NOTED, NO SIGNS OR C/O PAIN, WITH INTACT AND PATENT ROSAMARIA SL. SAFETY PRECAUTIONS OBSERVED, CALL LIGHT WITHIN REACH, WILL CONT TO MONITOR Addendum: 03/15/18 at 1621 by BRUCE ERAZO RN PLS DISREGARD
--- NOTE | 2018-03-15 07:30 | NUR ---
RN NOTES VS TAKEN, NOTED 02 SAT ON 80s on 6LPM. NOTED HAVING SOB, PLACED PT ON SEMI-JACKSON POSITION. PT STILL DENIES SOB AND INSISTS ITS ANXIETY. RECEIVED NEW ORDER FROM REDD RESENDEZ TO TRANSFUSE 2 UNITS RBC WITH HD TODAY. DR LEWIS ON FLOOR AND REPORT THAT PT'S O2 SAT IS DROPPING TO 80s, ALSO INFORMED THAT REDD RESENDEZ ORDERED FOR 2 UNITS RBC AND HD TODAY. DR LEWIS SAYS OK TO USE MASK FOR O2 TITRATE. WENT TO PT ROOM TO REPLACE NC TO MASK, PT REFUSED, SON AT BEDSIDE ALSO SAID THAT PT DOESN'T LIKE THE MASK, EXPLAINED RISKS AND BENEFITS, OFFERED 3X, STILL REFUSED, RESPECTED PT RIGHTS, AWARE, WILL KEEP MONITORING
[2018-03-15 07:45] LABS: LYMPHOCYTES % (MANUAL) 5 % (16-48); MONOCYTES % (MANUAL) 5 % (0-11.0); NEUTROPHILS % (MANUAL) 90 (42-76)
[2018-03-15 08:00] VITALS: BP 108/49
[2018-03-15] MEDS: BLOOD SUGAR DIAGNOSTIC 1 EACH STRIP IN SCH ×4 (08:00→21:17)
[2018-03-15] MEDS: INSULIN REGULAR, HUMAN 100 UNIT/ML 3 ML VIAL SQ PRN ×4 (08:15→21:18)
[2018-03-15] MEDS: methylPREDNISolone SOD SUCC 125 MG/2ML VIAL IV SCH ×3 (08:17→16:51)
[2018-03-15] MEDS: PANTOPRAZOLE 40 MG VIAL IV SCH (08:17)
[2018-03-15 09:51] VITALS: BP 108/49
--- NOTE | 2018-03-15 10:00 | NUR ---
RN NOTES HD AND BT STARTED BY DIALYSIS NURSE, VS TAKEN PLS SEE TRANSFUSION NOTES, PT DENIES PAIN, NO SOB AT THIS TIME, WILL CONT TO MONITOR
[2018-03-15] MEDS: IV NS 0.9% 1,000 ML IV PRN ×2 (10:04→23:19)
[2018-03-15 10:16] VITALS: BP 133/47
[2018-03-15 10:50] VITALS: BP 116/52
--- NOTE | 2018-03-15 10:50 | NUR ---
RN NOTES BT DONE, STILL ON HD. PLEASE SEE HD NOTES. WILL CONT TO MONITOR
--- NOTE | 2018-03-15 11:45 | NUR ---
RN NOTES HD DONE, PT APPEARS CALM, NO SOB NOTED, NO C/O PAIN, PT TOLERATED DIALYSIS WELL, WILL CONT TO MONITOR
[2018-03-15 12:18] LABS: CALCITRIOL VIT D,1, 25 DIHYDRO 59.9 pg/mL (19.9-79.3)
[2018-03-15 16:00] VITALS: BP 118/41
[2018-03-15] MEDS: LEVOFLOXACIN 500 MG /D5W 100ML 500 MG in PREMIX 1 EA IV SCH (17:27)
--- NOTE | 2018-03-15 19:29 | NUR ---
MS RN CLOSING NOTES PT IN BED IN SEMI FOWLERS POSITION, NO SOB NOTED, NO C/O PAIN, REMAINED NO SIGNS OF BLEEDING THROUGHOUT THE SHIFT, SAFETY MEASURES OBSERVED AT ALL TIMES, ALL NEEDS ATTENDED, ENDORSED TO PM SHIFT NURSE FOR CONT OF CARE
--- NOTE | 2018-03-15 19:30 | NUR ---
RN/MS NOTES: RECEIVED PT. IN BED W/ HOB ELEVATED AT ALL TIMES. A/O X 3. PASHTO SPEAKING ONLY. HAS RIGHT BRACHIAL MIDLINE G 18 W/ NS @ 100 ML/HR PATENT AND INTACT W/ NO S/S OF INFECTION/INFILTRATION NOTED. HAS HD CATH ON RIGHT FEMORAL W/ DRESSING CLEAN AND INTACT. LEFT HAND G 24 PATENT AND INTACT W/ NO S/S OF INFECTION/INFILTRATION NOTED. DENIES ANY C/O CHEST PAIN OR SOB AT PRESENT. WILL CONTINUE TO MONITOR.
[2018-03-15] MEDS: HYDROCODONE/APAP 5/325MG 1 EACH TABLET PO PRN (21:13)
[2018-03-15] MEDS: INSULIN GLARGINE, 100 UNIT/ML CARTRIDGE SQ SCH (21:20)
[2018-03-16] VITALS: BP 105/40
[2018-03-16 04:00] VITALS: BP 103/42
[2018-03-16] MEDS: PIPERACILLIN /TAZOBACTAM 2.25 G in IV D5W 50 ML IV SCH ×3 (05:02→21:49)
[2018-03-16 06:20] LABS: HEMATOCRIT 25 % (33-45); HEMOGLOBIN 8.3 g/dL (11.5-14.8); LYMPHOCYTES # (AUTO) 0.5 /CMM (0.8-4.8); LYMPHOCYTES % (AUTO) 4.3 % (20.0-44.0); MEAN CORPUSCULAR HGB CONC 34 g/dl (31.0-36.0); MEAN CORPUSCULAR VOLUME 93 fL (82-100); MONOCYTES # (AUTO) 0.2 /CMM (0.1-1.30); MONOCYTES % (AUTO) 2.1 % (2.0-12.0); NEUTROPHILS # (AUTO) 10.3 /CMM (1.8-8.9); NEUTROPHILS % (AUTO) 93.6 % (43.0-81.0); PLATELET COUNT (AUTO) 86 /CMM (150-450); RDW COEFFICIENT OF VARIATION 15.3 (11.5-15.0); RED BLOOD CELL COUNT(AUTO) 2.67 MIL/uL (4.0-5.2); WHITE BLOOD COUNT (AUTO) 11.1 K/uL (4.3-11.0)
[2018-03-16 06:32] LABS: ALANINE AMINOTRANSFERASE 13 U/L (12-78); ALBUMIN 2.2 g/dL (3.4-5.0); ALKALINE PHOSPHATASE 29 U/L (46-116); ASPARTATE AMINOTRANSFERASE 31 U/L (15-37); BILIRUBIN,TOTAL 1.6 mg/dL (0.2-1.0); CALCIUM, SERUM 7.8 mg/dL (8.5-10.1); CARBON DIOXIDE 24 mmol/L (21-32); CHLORIDE 108 mmol/L (98-107); CREATININE 5.5 mg/dL (0.6-1.3); GLUCOSE 145 mg/dL (74-106); MAGNESIUM 2.2 mg/dL (1.8-2.4); POTASSIUM 4.3 mmol/L (3.5-5.1); SODIUM SERUM 145 mmol/L (136-145); TOTAL PROTEIN, SERUM 5.9 g/dL (6.4-8.2)
[2018-03-16 06:36] LABS: UREA NITROGEN, BLOOD 99 mg/dL (7-18)
[2018-03-16 07:19] LABS: COMPLEMENT C3, SERUM 123 mg/dL (82-167); COMPLEMENT C4, SERUM 19 mg/dL (14-44)
--- NOTE | 2018-03-16 07:36 | NUR ---
RN/MS NOTES: NO ACUTE CHANGES NOTED DURING THIS SHIFT. REPORT GIVEN TO AM NURSE FOR CARLOS.
[2018-03-16 08:00] VITALS: BP 123/47
--- NOTE | 2018-03-16 08:00 | NUR ---
BILLY DEL ROSARIO REPORTED SPO2 82% ON 6L VIA NASAL CANNULA. RN RE-CHECKED SPO2 ON TWO DIFFERENT FINGERS. PATIENT PLACED ON 10 L VIA SIMPLE DACE MASK. RT PAGED. CHANGE NURSE AND MD NOTIFIED. OXYGEN ORDER OBTAINED/VERIFIED.
--- NOTE | 2018-03-16 08:04 | NUR ---
SPO2 83% ON 10 L VIA FACE MASK. RT PLACED THE PATIENT ON 15L VIA NON-REBREATHER MASK. MD AWARE. CHARGE NURSE INFORMED. ORDER VERIFIED. SPO2 96%. PATIENT IS A/O X3, AWAKE AND RESPONSIVE. SON AT THE BEDSIDE.
--- NOTE | 2018-03-16 08:11 | NUR ---
HD AT THE BEDSIDE.
--- NOTE | 2018-03-16 08:21 | NUR ---
EXTERNAL CAEDIAC MONITOR APPLIED WITH READING SR [address] PVS's NOTED. [address] MCKNIGHT, THE HEMMER CHAINSTITCH SAW THE PATIENT. IV FLUIDS DISCONTINUED.
--- NOTE | 2018-03-16 08:21 | NUR ---
PATIENT TRANSFERRED TO [facility] STATUS.
--- NOTE | 2018-03-16 08:30 | NUR ---
MS RN OPENING NOTE RECEIVED BEDSIDE SBAR REPORT ON THE PATIENT. PATIENT IS A/O X3, CHINESE SPEAKING FEMALE. AWAKE AND RESPONSIVE IN BED. BED IS LOCKED IN LOWEST POSITION, SIDE RAILS UP X2, BED ALARM IS ON. PATIENT IN HIGH JACKSON'S POSITION. SKIN IS INTACT, EXCEPT FOR BLANCHABLE PITTING REDNESS, WHICH IS COVERED BY A MEPILEX FOR PROTECTION. DENIES PAIN/DISCOMFORT AT THIS TIME. AMBULATORY WITH ASSIST AND ORIENTED TO OWN ABILITIES. CALL LIGHT WITHIN REACH. EDUCATED TO USE THE CALL LIGHT TO CALL FOR ASSISTANCE WITH THE HELP PF BILLY JOSHUA FOR TRANSLATION. PATIENT VERBALIZED UNDERSTANDING. WILL CONTINUE TO ASSESS/MONITOR THROUGHOUT THE SHIFT.
[2018-03-16] MEDS: methylPREDNISolone SOD SUCC 125 MG/2ML VIAL IV SCH ×3 (08:34→17:46)
[2018-03-16] MEDS: BLOOD SUGAR DIAGNOSTIC 1 EACH STRIP IN SCH ×4 (08:34→21:49)
[2018-03-16] MEDS: Z GUARD REMEDY 2 OZ OINT TP PRN (08:34)
[2018-03-16] MEDS: PANTOPRAZOLE 40 MG VIAL IV SCH (08:34)
--- NOTE | 2018-03-16 08:44 | NUR ---
BG 132MG/SL. The son at the bedside. Patient presents with poor appetite and refused breakfasr. Son/patient refused coverage at this time.
[2018-03-16 08:58] LABS: LYMPHOCYTES % (MANUAL) 3 % (16-48); MONOCYTES % (MANUAL) 4 % (0-11.0); NEUTROPHILS % (MANUAL) 93 (42-76)
[2018-03-16] MEDS ORDERED: ALBUMIN 25% 25 GM in PREMIX 1 EA IV PRN (09:30)
[2018-03-16] MEDS: PANTOPRAZOLE 40 MG TABLET.DR PO SCH (09:58)
--- NOTE | 2018-03-16 10:15 | NUR ---
HD COMPLETED. 2.5 L OF FLUID REMOVED. B 107/53 MMHG. OTHER VS WNL. SPO2 98% ON 15L VIA NON-REBREATHER MASK. THE SON AT THE BEDSIDE.
[2018-03-16 11:20] LABS: *ANCANTIMYELOPEROXIDASE (MPO) 75.4 U/mL (0.0-9.0); *ANCANTIPROTEINASE 3 (PR-3) AB <3.5 U/mL (0.0-3.5)
[2018-03-16 12:00] VITALS: BP 107/49
[2018-03-16 16:00] VITALS: BP_SYST 123; BP_SYST 98; BP_DIAS 47
[2018-03-16] MEDS: INSULIN REGULAR, HUMAN 100 UNIT/ML 3 ML VIAL SQ PRN ×2 (17:54→21:57)
--- NOTE | 2018-03-16 18:21 | NUR ---
SUGAR SAMPLER CLOSING NOTE RECEIVED BEDSIDE SBAR REPORT ON THE PATIENT. PATIENT IS A/O X3, FILIPINO SPEAKING FEMALE. AWAKE AND RESPONSIVE IN BED. BED IS LOCKED IN LOWEST POSITION, SIDE RAILS UP X2, BED ALARM IS ON. PATIENT IN HIGH JACKSON'S POSITION. CHEST IS RISING EQUALLY BILATERALLY. SPO2 98% ON 15 L VIA NON-REBREATHER MASK. DAUGHTER AT THE BEDSIDE. PATIENT/DAUGHTER EDUCATED TO KEEP THE MASK O N ATT ALL TIMES. DENIES PAIN/DISCOMFORT AT THIS TIME. AMBULATORY WITH ASSIST AND ORIENTED TO OWN ABILITIES. BM WITH ONE LARGE LOOSE STOOL. DENIES ABDOMINAL PAIN/CRAMPS. NURSING CARE RENDERED. CALL LIGHT WITHIN REACH. EDUCATED TO USE THE CALL LIGHT TO CALL FOR ASSISTANCE. PATIENT VERBALIZED UNDERSTANDING. WILL ENDORSE TO THE TUBE FORMER OPERATOR NURSE FOR CARLOS.
--- NOTE | 2018-03-16 18:27 | NUR ---
EXTERNAL SEWER TAPPER READING SR 72.
[2018-03-16 20:00] VITALS: BP 101/56
--- NOTE | 2018-03-16 20:00 | NUR ---
BILLY RN NOTES RECEIVED BEDSIDE REPORT FROM AM NURSE ON THE PATIENT. PATIENT IS A/O X3, MACEDONIAN SPEAKING FEMALE. AWAKE AND RESPONSIVE IN BED. BED IS LOCKED IN LOWEST POSITION, SIDE RAILS UP X2, BED ALARM IS ON. PATIENT IN HIGH JACKSON'S POSITION, FAMILY BEDSIDE , SPO2 95% ON 15 L VIA NON-REBREATHER MASK. PATIENT/FAMILY ARE EDUCATED TO KEEP THE MASK ON ATT ALL TIMES. DENIES PAIN/DISCOMFORT AT THIS TIME. AMBULATORY WITH ASSIST AND ORIENTED TO OWN ABILITIES. CALL LIGHT WITHIN REACH. WILL CONTINUE TO MONITOR.
[2018-03-16] MEDS: INSULIN GLARGINE, 100 UNIT/ML CARTRIDGE SQ SCH (21:58)
[2018-03-17] VITALS: BP 105/40
[2018-03-17 04:00] VITALS: BP 101/42
--- NOTE | 2018-03-17 04:20 | NUR ---
BILLY RN NOTES PATIENT IS GETTING O2 15L VIA NR MASK WITH OXYGENATION OF100%. PATIENT O2 HAS BEEN TITRATED TO 10L VIA REGULAR MASK WITH OXYGENATION OF 95%. PT IS RESTING COMFORTABLY IN BED, NO ACUTE DISTRESS, NO SOB, NO PAIN NOTED AT THIS TIME. PT CARE WILL BE ENDORSED TO AM NURSE.
[2018-03-17] MEDS: PIPERACILLIN /TAZOBACTAM 2.25 G in IV D5W 50 ML IV SCH ×3 (05:39→21:39)
[2018-03-17 06:06] LABS: EOSINOPHILS % (AUTO) 0.1 % (0.0-6.0); HEMATOCRIT 26 % (33-45); HEMOGLOBIN 8.4 g/dL (11.5-14.8); LYMPHOCYTES # (AUTO) 0.7 /CMM (0.8-4.8); LYMPHOCYTES % (AUTO) 6.4 % (20.0-44.0); MEAN CORPUSCULAR HGB CONC 33 g/dl (31.0-36.0); MEAN CORPUSCULAR VOLUME 93 fL (82-100); MONOCYTES # (AUTO) 0.4 /CMM (0.1-1.30); NEUTROPHILS # (AUTO) 10.6 /CMM (1.8-8.9); NEUTROPHILS % (AUTO) 90.5 % (43.0-81.0); PLATELET COUNT (AUTO) 91 /CMM (150-450); RDW COEFFICIENT OF VARIATION 15.4 (11.5-15.0); RED BLOOD CELL COUNT(AUTO) 2.75 MIL/uL (4.0-5.2); WHITE BLOOD COUNT (AUTO) 11.7 K/uL (4.3-11.0)
[2018-03-17 07:02] LABS: CARBON DIOXIDE 25 mmol/L (21-32); CHLORIDE 105 mmol/L (98-107); CREATININE 5.1 mg/dL (0.6-1.3); GLUCOSE 147 mg/dL (74-106); POTASSIUM 4.5 mmol/L (3.5-5.1); SODIUM SERUM 143 mmol/L (136-145)
[2018-03-17 07:03] LABS: UREA NITROGEN, BLOOD 89 mg/dL (7-18)
--- NOTE | 2018-03-17 07:10 | NUR ---
TWX OPERATOR OPENING NOTES RECEIVED BEDSIDE REPORT FROM PM NURSE . PATIENT IS A/O X3, YI SPEAKING FEMALE. AWAKE AND ALERT,RESTING IN BED. PATIENT IN HIGH JACKSON'S POSITION, ON O2 10 L VIA MASK.HAS R BRACHIAL MIDLINE WITH TKO.ON TELE MONITOR WITH SR 63. DENIES PAIN/DISCOMFORT AT THIS TIME. AMBULATORY WITH ASSIST AND ORIENTED TO OWN ABILITIES. CALL LIGHT WITHIN REACH. BED IS LOCKED IN LOWEST POSITION, SIDE RAILS UP X3, BED ALARM IS ON. WILL CONTINUE TO MONITOR.
[2018-03-17] MEDS: BLOOD SUGAR DIAGNOSTIC 1 EACH STRIP IN SCH ×4 (07:58→21:58)
[2018-03-17 08:00] VITALS: BP 99/57
[2018-03-17] MEDS: PANTOPRAZOLE 40 MG TABLET.DR PO SCH (08:24)
[2018-03-17] MEDS: methylPREDNISolone SOD SUCC 125 MG/2ML VIAL IV SCH ×3 (08:24→18:01)
[2018-03-17] MEDS: INSULIN REGULAR, HUMAN 100 UNIT/ML 3 ML VIAL SQ PRN ×3 (08:25→21:41)
--- NOTE | 2018-03-17 08:30 | NUR ---
RN NOTES SEEN BY WITH NEW ORDERS.HD TODAY.
[2018-03-17 08:32] LABS: BAND % (MANUAL) 1 % (0.0-5.0); LYMPHOCYTES % (MANUAL) 7 % (16-48); MONOCYTES % (MANUAL) 2 % (0-11.0); NEUTROPHILS % (MANUAL) 90 (42-76)
[2018-03-17 12:00] VITALS: BP 116/56
--- NOTE | 2018-03-17 13:00 | NUR ---
RN NOTES CALL MADE TO [facility]IS [facility] .UNABLE TO CONNECT THE PHONE CALL.LEFT MESSAGE.WAITING TO CALL BACK.
--- NOTE | 2018-03-17 14:00 | NUR ---
DE ALCHOLIZER NOTES CALL MADE TO DIALYSIS [facility] LEFT MESSAGE.WAITING TO CALL BACK.
[2018-03-17 16:00] VITALS: BP 101/52
[2018-03-17] MEDS: LEVOFLOXACIN 500 MG /D5W 100ML 500 MG in PREMIX 1 EA IV SCH (18:02)
--- NOTE | 2018-03-17 18:55 | NUR ---
EDITING INTERN SHIFT END NOTES .PATIENT IS A/O X3, URUGUAYAN SPEAKING FEMALE. AWAKE AND ALERT,RESTING IN BED. PATIENT IN HIGH JACKSON'S POSITION, ON O2 10 L VIA MASK.SATURATING 95%.HAS R BRACHIAL MIDLINE WITH TKO.ON TELE MONITOR WITH SR 62. DENIES PAIN/DISCOMFORT AT THIS TIME. AMBULATORY WITH ASSIST AND ORIENTED TO OWN ABILITIES. CALL LIGHT WITHIN REACH. BED IS LOCKED IN LOWEST POSITION, SIDE RAILS UP X3, BED ALARM IS ON.DIALYSIS DONE.1L FLUID OUTPUT FROM DIALYSIS.BP IS 113/40.HR 62. WILL ENDORSE TO PM NURSE FOR CARLOS.
[2018-03-17 20:00] VITALS: BP_SYST 107; BP_SYST 120; BP_DIAS 43
--- NOTE | 2018-03-17 20:00 | NUR ---
BILLY RN NOTES RECEIVED BEDSIDE REPORT FROM AM NURSE ON THE PATIENT. PATIENT IS A/O X3, SAMOAN SPEAKING FEMALE.PT IS AWAKE AND RESPONSIVE IN BED. BED IS LOCKED, LOW POSITION, SIDE RAILS UP X2, BED ALARM IS ON. PATIENT IN HIGH JACKSON'S POSITION, FAMILY BEDSIDE , SPO2 97% ON 10 L VIA MASK. PATIENT/FAMILY ARE EDUCATED TO KEEP THE MASK ON ATT ALL TIMES. DENIES PAIN/DISCOMFORT AT THIS TIME. AMBULATORY WITH ASSIST AND ORIENTED TO OWN ABILITIES. CALL LIGHT WITHIN REACH. WILL CONTINUE TO MONITOR.
[2018-03-17] MEDS: INSULIN GLARGINE, 100 UNIT/ML CARTRIDGE SQ SCH (21:40)
[2018-03-18] VITALS: BP 115/50
[2018-03-18 04:00] VITALS: BP 108/50
[2018-03-18] MEDS: PIPERACILLIN /TAZOBACTAM 2.25 G in IV D5W 50 ML IV SCH ×3 (05:17→20:43)
[2018-03-18 06:14] LABS: ALANINE AMINOTRANSFERASE 14 U/L (12-78); ALBUMIN 2.9 g/dL (3.4-5.0); ALKALINE PHOSPHATASE 21 U/L (46-116); ASPARTATE AMINOTRANSFERASE 21 U/L (15-37); BILIRUBIN,TOTAL 2.6 mg/dL (0.2-1.0); CALCIUM, SERUM 8.1 mg/dL (8.5-10.1); CARBON DIOXIDE 27 mmol/L (21-32); CHLORIDE 102 mmol/L (98-107); CREATININE 4.5 mg/dL (0.6-1.3); GLUCOSE 110 mg/dL (74-106); MAGNESIUM 2.2 mg/dL (1.8-2.4); PHOSPHORUS 5.4 mg/dL (2.5-4.9); POTASSIUM 4.3 mmol/L (3.5-5.1); SODIUM SERUM 140 mmol/L (136-145); TOTAL PROTEIN, SERUM 6.2 g/dL (6.4-8.2); UREA NITROGEN, BLOOD 69 mg/dL (7-18)
[2018-03-18 06:23] LABS: HEMATOCRIT 26 % (33-45); HEMOGLOBIN 8.6 g/dL (11.5-14.8); LYMPHOCYTES # (AUTO) 0.6 /CMM (0.8-4.8); LYMPHOCYTES % (AUTO) 5.5 % (20.0-44.0); MEAN CORPUSCULAR HGB CONC 34 g/dl (31.0-36.0); MEAN CORPUSCULAR VOLUME 93 fL (82-100); MONOCYTES # (AUTO) 0.3 /CMM (0.1-1.30); MONOCYTES % (AUTO) 2.4 % (2.0-12.0); NEUTROPHILS # (AUTO) 9.9 /CMM (1.8-8.9); NEUTROPHILS % (AUTO) 92.1 % (43.0-81.0); PLATELET COUNT (AUTO) 66 /CMM (150-450); RDW COEFFICIENT OF VARIATION 15.7 (11.5-15.0); RED BLOOD CELL COUNT(AUTO) 2.75 MIL/uL (4.0-5.2); WHITE BLOOD COUNT (AUTO) 10.8 K/uL (4.3-11.0)
[2018-03-18] MEDS: BLOOD SUGAR DIAGNOSTIC 1 EACH STRIP IN SCH ×4 (07:53→21:07)
[2018-03-18] MEDS: PANTOPRAZOLE 40 MG TABLET.DR PO SCH (07:55)
[2018-03-18 08:00] VITALS: BP 109/51
[2018-03-18] MEDS: methylPREDNISolone SOD SUCC 125 MG/2ML VIAL IV SCH ×3 (08:00→17:30)
[2018-03-18 08:57] LABS: BAND % (MANUAL) 8 % (0.0-5.0); LYMPHOCYTES % (MANUAL) 5 % (16-48); MONOCYTES % (MANUAL) 6 % (0-11.0); NEUTROPHILS % (MANUAL) 81 (42-76)
[2018-03-18 12:00] VITALS: BP 115/50
[2018-03-18] MEDS: INSULIN REGULAR, HUMAN 100 UNIT/ML 3 ML VIAL SQ PRN ×3 (12:31→21:09)
[2018-03-18] MEDS: DOXYCYCLINE HYCLATE (100 MG) 100 MG TABLET PO SCH ×2 (13:43→20:43)
[2018-03-18 16:00] VITALS: BP 116/48
[2018-03-18 20:00] VITALS: BP 119/42
--- NOTE | 2018-03-18 20:45 | NUR ---
RN NOTE TEMPERATURE OF 101.6F NOTED, CALLED DEANDRE RESENDEZ NP, NEW ORDERS WAS GIVEN AND CARRIED OUT Addendum: 03/18/18 at 2119 by SARAY BENSON RN WRONG PATIENT, PLS DISCARD THIS NOTE
[2018-03-18] MEDS: INSULIN GLARGINE, 100 UNIT/ML CARTRIDGE SQ SCH (21:08)
[2018-03-19] VITALS: BP 107/44
[2018-03-19 04:00] VITALS: BP 113/49
[2018-03-19] MEDS: PIPERACILLIN /TAZOBACTAM 2.25 G in IV D5W 50 ML IV SCH ×3 (05:30→21:08)
--- NOTE | 2018-03-19 06:37 | NUR ---
RN NOTE PATIENT RESTED WELL AT NIGHT, NO SOB, NO RESPIRATORY DISTRESS NOTED, NO PAIN OR DISCOMFORT NOTED, SR ON THE MONITOR, ALL SAFETY MEASURES TAKEN, CALL LIGHT WITHIN REACH, BED IN THE LOWEST POSITION, SIDE RAILS UP X 2, BED ALARM ON, WILL ENDORSE TO AM SHIFT FOR CARLOS
[2018-03-19 06:53] LABS: ALANINE AMINOTRANSFERASE 16 U/L (12-78); ALBUMIN 2.7 g/dL (3.4-5.0); ALKALINE PHOSPHATASE 21 U/L (46-116); ASPARTATE AMINOTRANSFERASE 19 U/L (15-37); CARBON DIOXIDE 24 mmol/L (21-32); CHLORIDE 99 mmol/L (98-107); GLUCOSE 187 mg/dL (74-106); MAGNESIUM 2.4 mg/dL (1.8-2.4); PHOSPHORUS 7.8 mg/dL (2.5-4.9); SODIUM SERUM 139 mmol/L (136-145); TOTAL PROTEIN, SERUM 6.1 g/dL (6.4-8.2)
[2018-03-19 06:56] LABS: HEMATOCRIT 26 % (33-45); HEMOGLOBIN 8.8 g/dL (11.5-14.8); LYMPHOCYTES # (AUTO) 0.6 /CMM (0.8-4.8); LYMPHOCYTES % (AUTO) 4.6 % (20.0-44.0); MEAN CORPUSCULAR HGB CONC 34 g/dl (31.0-36.0); MEAN CORPUSCULAR VOLUME 94 fL (82-100); MONOCYTES # (AUTO) 0.2 /CMM (0.1-1.30); MONOCYTES % (AUTO) 2.1 % (2.0-12.0); NEUTROPHILS # (AUTO) 11.1 /CMM (1.8-8.9); NEUTROPHILS % (AUTO) 93.3 % (43.0-81.0); PLATELET COUNT (AUTO) 59 /CMM (150-450); RDW COEFFICIENT OF VARIATION 15.6 (11.5-15.0); RED BLOOD CELL COUNT(AUTO) 2.75 MIL/uL (4.0-5.2); UREA NITROGEN, BLOOD 106 mg/dL (7-18); WHITE BLOOD COUNT (AUTO) 11.9 K/uL (4.3-11.0)
[2018-03-19] MEDS: BLOOD SUGAR DIAGNOSTIC 1 EACH STRIP IN SCH ×4 (07:55→21:12)
[2018-03-19 08:00] VITALS: BP 112/81
[2018-03-19] MEDS: DOXYCYCLINE HYCLATE (100 MG) 100 MG TABLET PO SCH ×2 (08:12→21:08)
[2018-03-19] MEDS: PANTOPRAZOLE 40 MG TABLET.DR PO SCH (08:12)
[2018-03-19] MEDS: methylPREDNISolone SOD SUCC 125 MG/2ML VIAL IV SCH (08:13)
[2018-03-19] MEDS: INSULIN REGULAR, HUMAN 100 UNIT/ML 3 ML VIAL SQ PRN ×4 (08:17→21:24)
--- NOTE | 2018-03-19 08:24 | NUR ---
WOUND CARE CONSULT: PT PRESENTS WITH LEFT BUTTOCK SKIN TEAR. PT DEMONSTRATES ABILITY TO ASSIST WITH TURNING AND REPOSITIONING IN BED. PT ON RICCO ISOFLEX LOW AIRLOSS BED. ALL SKIN PROTECTION AND WOUND CARE RECOMMENDATIONS DISCUSSED WITH NURSING STAFF. CURRENT DIMA SCORE IS 16. WILL SEE PRN. NEWTON IN AGREEMENT WITH PLAN OF CARE. Addendum: 03/19/18 at 0825 by DAVID DOOLEY WNDNU Amended: Links added.
[2018-03-19] MEDS ORDERED: MISCELLANEOUS MED 1 EA EA XX ONE (09:00)
[2018-03-19] MEDS: predniSONE 20 MG TABLET PO SCH (09:00)
[2018-03-19 09:48] LABS: MONOCYTES % (MANUAL) 4 % (0-11.0); NEUTROPHILS % (MANUAL) 96 (42-76)
--- NOTE | 2018-03-19 10:00 | NUR ---
RN NOTE PREDNISONE WAS NOT GIVEN BECAUSE PT HAD SOLU MEDROL IN AM, PER DR HOLLOWAY TO START IT TOMORROW.
[2018-03-19] MEDS: BACITRACIN/POLYMYXIN B 15 GM TUBE TP SCH (11:08)
[2018-03-19 13:10] LABS: *ANCA ATYPICAL p-ANCA <1:20 titer (Neg:<1:20); *ANCA CYTOPLASMIC (C-ANCA) <1:20 titer (Neg:<1:20)
[2018-03-19 14:00] VITALS: BP 110/39
[2018-03-19 16:00] VITALS: BP 110/39
[2018-03-19 20:00] VITALS: BP 117/43
--- NOTE | 2018-03-19 20:05 | NUR ---
BILLY RN NOTES RECEIVED BEDSIDE REPORT FROM AM NURSE ON THE PATIENT. PATIENT IS A/O X3, GAMBIAN SPEAKING FEMALE. PT IS AWAKE AND RESPONSIVE IN BED. NO SOB, NO ACUTE DISTRESS NOTED AT THIS TIME. BED IS LOCKED, LOW POSITION, SIDE RAILS UP X2, BED ALARM IS ON. PATIENT IN HIGH JACKSON'S POSITION, FAMILY BEDSIDE , SPO2 97% ON 4.5 L VIA NC. PATIENT/FAMILY ARE EDUCATED TO KEEP THE NC ON ATT ALL TIMES. DENIES PAIN/DISCOMFORT AT THIS TIME. AMBULATORY WITH ASSIST AND ORIENTED TO OWN ABILITIES. CALL LIGHT WITHIN REACH. WILL CONTINUE TO MONITOR.
[2018-03-19] MEDS: INSULIN GLARGINE, 100 UNIT/ML CARTRIDGE SQ SCH (21:23)
[2018-03-20 04:00] VITALS: BP 104/65
[2018-03-20] MEDS: PIPERACILLIN /TAZOBACTAM 2.25 G in IV D5W 50 ML IV SCH ×3 (05:46→21:04)
[2018-03-20 07:15] LABS: BASOPHILS % (AUTO) 0.1 % (0.0-2.0); EOSINOPHILS % (AUTO) 0.2 % (0.0-6.0); HEMATOCRIT 27 % (33-45); LYMPHOCYTES # (AUTO) 0.8 /CMM (0.8-4.8); LYMPHOCYTES % (AUTO) 4.6 % (20.0-44.0); MEAN CORPUSCULAR HGB CONC 34 g/dl (31.0-36.0); MEAN CORPUSCULAR VOLUME 94 fL (82-100); MONOCYTES # (AUTO) 0.4 /CMM (0.1-1.30); MONOCYTES % (AUTO) 2.6 % (2.0-12.0); NEUTROPHILS # (AUTO) 15.5 /CMM (1.8-8.9); NEUTROPHILS % (AUTO) 92.5 % (43.0-81.0); PLATELET COUNT (AUTO) 63 /CMM (150-450); RDW COEFFICIENT OF VARIATION 16.1 (11.5-15.0); RED BLOOD CELL COUNT(AUTO) 2.84 MIL/uL (4.0-5.2); WHITE BLOOD COUNT (AUTO) 16.8 K/uL (4.3-11.0)
[2018-03-20 07:22] LABS: ALBUMIN 2.6 g/dL (3.4-5.0); BILIRUBIN,DIRECT 0.4 mg/dL (0.0-0.2); BILIRUBIN,TOTAL 1.8 mg/dL (0.2-1.0); CALCIUM, SERUM 8.2 mg/dL (8.5-10.1); CARBON DIOXIDE 26 mmol/L (21-32); CHLORIDE 104 mmol/L (98-107); CREATININE 5.3 mg/dL (0.6-1.3); GLUCOSE 72 mg/dL (74-106); POTASSIUM 3.8 mmol/L (3.5-5.1); SODIUM SERUM 142 mmol/L (136-145); TOTAL PROTEIN, SERUM 5.8 g/dL (6.4-8.2)
[2018-03-20 07:23] LABS: C-REACTIVE PROTEIN 2.1 mg/dL (0.0-0.9); UREA NITROGEN, BLOOD 94 mg/dL (7-18)
[2018-03-20] MEDS: BLOOD SUGAR DIAGNOSTIC 1 EACH STRIP IN SCH ×4 (07:30→21:13)
[2018-03-20] MEDS: PANTOPRAZOLE 40 MG TABLET.DR PO SCH (07:56)
[2018-03-20 08:00] VITALS: BP 99/45
[2018-03-20] MEDS: DOXYCYCLINE HYCLATE (100 MG) 100 MG TABLET PO SCH ×2 (08:04→21:04)
[2018-03-20] MEDS: predniSONE 20 MG TABLET PO SCH (08:04)
[2018-03-20] MEDS: BACITRACIN/POLYMYXIN B 15 GM TUBE TP SCH (08:05)
--- NOTE | 2018-03-20 09:18 | NUR ---
PER RADIOLOGIST DR. LEONARD WHO TALKED TO ORDERING DR. HOLLOWAY, U/S NEEDLE GUIDED KIDNEY BIOPSY ON HOLD FOR NOW UNTIL FURTHER NOTICE. OTHER TESTS TO BE DONE FIRST.
[2018-03-20 09:34] LABS: LYMPHOCYTES % (MANUAL) 5 % (16-48); MONOCYTES % (MANUAL) 6 % (0-11.0); NEUTROPHILS % (MANUAL) 89 (42-76)
[2018-03-20 12:00] VITALS: BP 101/47
[2018-03-20] MEDS: CYCLOPHOSPHAMIDE 25 MG PO SCH (14:12)
[2018-03-20 16:01] VITALS: BP 104/53
[2018-03-20] MEDS: INSULIN REGULAR, HUMAN 100 UNIT/ML 3 ML VIAL SQ PRN ×2 (17:49→21:17)
--- NOTE | 2018-03-20 18:16 | NUR ---
RN CLOSING NOTES: PT SITTING UP IN RECLINER CHAIR. 02 AT 2L 97%. DECREASED O2 TO 1L NC AND WILL CONTINUE TO MONITOR. NOTED TO BE SLIGHTLY SOB ON EXERTION. POOR APPETITE BUT NO NAUSEA AND VOMITING NOTED. SOFT BROWN BM UP TO 3X TODAY. NO C/O PAIN. SKIN CARE DONE. FAMILY AT BEDSIDE. WILL CONTINUE TO MONITOR.
--- NOTE | 2018-03-20 18:46 | NUR ---
RN NOTES: BRIEFLY EDUCATED PT AND FAMILY ABOUT SAFE HANDLING OF CHEMO DRUG CYTOXAN. ENCOURAGED FOR QUESTIONS, NONE RAISED.
--- NOTE | 2018-03-20 19:30 | NUR ---
TELE/RN NOTES: RECEIVED PT. IN SHIRA CHAIR A/O X 4 AZERI SPEAKING ONLY. ON TELE MONITOR W/ SR 68. HAS A RIGHT BRACHIAL MIDLINE G 18 W/ DRESSING INTACT AND PATENT W/ NO S/S OF INFECTION/INFILTRATION NOTED. ALSO HAS RIGHT FEMORAL HD CATH. FAMILY PRESENT AT BEDSIDE. DENIES ANY C/O CHEST PAIN OR SOB AT PRESENT. WILL CONTINUE TO MONITOR. CALL LIGHT W/ REACH.
--- NOTE | 2018-03-20 19:41 | NUR ---
RN NOTES: PT IN AGREEMENT WITH KIDNEY BIOPSY AND CONSENT SIGNED. DR MEDRANO SPOKE WITH FAMILY AND STATED THAT SHE WILL NOTIFY DR HOLLOWAY. NOTIFIED SILICATOR RN TO F/U WITH RADIOLOGY.
[2018-03-20 20:00] VITALS: BP 133/52
--- NOTE | 2018-03-20 20:15 | NUR ---
TELE/RN NOTES: JOURNEYMAN PIPEFITTER ON FLOOR AND INFORMED ABOUT FAMILY SIGNED THE CONSENT FOR THE US GUIDED NEEDLE BIOPSY. FOR TECH BRANDY IS IN CHARGE OF THIS CASE TO CALL HER IN MORNING AT 7 AM.
[2018-03-20] MEDS: INSULIN GLARGINE, 100 UNIT/ML CARTRIDGE SQ SCH (21:16)
[2018-03-21] VITALS (9 sets, daily range): BP systolic 100–115; BP diastolic 43–65
[2018-03-21 06:39] LABS: EOSINOPHILS % (AUTO) 0.3 % (0.0-6.0); HEMATOCRIT 28 % (33-45); HEMOGLOBIN 9.3 g/dL (11.5-14.8); LYMPHOCYTES # (AUTO) 0.8 /CMM (0.8-4.8); LYMPHOCYTES % (AUTO) 4.8 % (20.0-44.0); MEAN CORPUSCULAR HGB CONC 34 g/dl (31.0-36.0); MEAN CORPUSCULAR VOLUME 94 fL (82-100); MONOCYTES # (AUTO) 0.6 /CMM (0.1-1.30); MONOCYTES % (AUTO) 3.6 % (2.0-12.0); NEUTROPHILS % (AUTO) 91.3 % (43.0-81.0); PLATELET COUNT (AUTO) 54 /CMM (150-450); RDW COEFFICIENT OF VARIATION 16.7 (11.5-15.0); RED BLOOD CELL COUNT(AUTO) 2.96 MIL/uL (4.0-5.2); WHITE BLOOD COUNT (AUTO) 16.4 K/uL (4.3-11.0)
[2018-03-21 06:47] LABS: ALANINE AMINOTRANSFERASE 17 U/L (12-78); ALBUMIN 2.6 g/dL (3.4-5.0); ALKALINE PHOSPHATASE 19 U/L (46-116); ASPARTATE AMINOTRANSFERASE 19 U/L (15-37); CALCIUM, SERUM 7.8 mg/dL (8.5-10.1); CARBON DIOXIDE 21 mmol/L (21-32); CHLORIDE 100 mmol/L (98-107); CREATININE 6.8 mg/dL (0.6-1.3); GLUCOSE 82 mg/dL (74-106); MAGNESIUM 2.1 mg/dL (1.8-2.4); SODIUM SERUM 139 mmol/L (136-145); TOTAL PROTEIN, SERUM 5.8 g/dL (6.4-8.2)
--- NOTE | 2018-03-21 07:10 | NUR ---
SAND SCREENER OPERATOR OPENING NOTE RECEIVED BEDSIDE REPORT FROM PM NURSE . PATIENT IS A/O X3, AUSTRALIAN SPEAKING FEMALE. PT IS AWAKE AND RESPONSIVE GERICHAIR.SAFETY MAINTAINED. NO SOB, NO ACUTE DISTRESS NOTED AT THIS TIME.ON 1L O2 VIA NASAL CANULA, SPO2 94% .HAS R BRACHIAL MIDLINE WITH TKO.INTACT AND PATENT.BED IS LOCKED, LOW POSITION, SIDE RAILS UP X3,CALL LIGHT IN REACH. WILL CONTINUE TO MONITOR.
[2018-03-21] MEDS: BLOOD SUGAR DIAGNOSTIC 1 EACH STRIP IN SCH ×4 (07:30→22:16)
--- NOTE | 2018-03-21 07:30 | NUR ---
CASKET ASSEMBLER METAL NOTES: NO ACUTE CHANGES NOTED DURING THIS SHIFT. REPORT GIVEN TO AM NURSE FOR CARLOS.
[2018-03-21 07:51] LABS: PHOSPHORUS 9.1 mg/dL (2.5-4.9); UREA NITROGEN, BLOOD 114 mg/dL (7-18)
[2018-03-21 08:23] LABS: LYMPHOCYTES % (MANUAL) 2 % (16-48); MONOCYTES % (MANUAL) 8 % (0-11.0); NEUTROPHILS % (MANUAL) 90 (42-76)
[2018-03-21] MEDS: PANTOPRAZOLE 40 MG TABLET.DR PO SCH (08:43)
[2018-03-21] MEDS: predniSONE 20 MG TABLET PO SCH (08:43)
[2018-03-21] MEDS: BACITRACIN/POLYMYXIN B 15 GM TUBE TP SCH (08:44)
[2018-03-21] MEDS: CYCLOPHOSPHAMIDE 25 MG PO SCH (08:44)
[2018-03-21 09:30] LABS: INR 1.22 (0.87-1.13)
--- NOTE | 2018-03-21 12:00 | NUR ---
PERFORATOR TYPIST NOTES SEEN BY MIGEL FROM RADIOLOGY,TOLD THAT SHE IS SCHEDULED TO HAVE RENAL BIOPSY ON 03/22/18 TOMORROW AT 1000.NPO FROM MIDNIGHT ,PT AND PT INR ORDERED.CONSENT VERIFIED.CONTINUE TO MONITOR.
[2018-03-21] MEDS: SEVELAMER CARBONATE 800 MG TABLET PO SCH ×2 (12:16→17:54)
[2018-03-21] MEDS: INSULIN REGULAR, HUMAN 100 UNIT/ML 3 ML VIAL SQ PRN ×3 (12:24→22:19)
--- NOTE | 2018-03-21 19:20 | NUR ---
TERRITORY REPRESENTATIVE SHIFT END NOTE PATIENT IS A/O X3, HONDURAN SPEAKING FEMALE. PT IS AWAKE AND RESPONSIVE IN BED.FAMILY AT BEDSIDE.SAFETY MAINTAINED. NO SOB, NO ACUTE DISTRESS NOTED DURING CARE.ON 1L O2 VIA NASAL CANULA, SPO2 95% .HAS R BRACHIAL MIDLINE WITH PLATELET TRANSFUSION ONGOING.SEEN BY TOLD TO TRANSFUSE PLATELET IN 1 HR.FPP TRANSFUSION TOMORROW.PRIOR TO RENAL BIOPSY.NPO FROM MIDNIGHT.ENDORSED TO PM NURS.BED IS LOCKED, LOW POSITION, SIDE RAILS UP X3,CALL LIGHT IN REACH. WILL ENDORSE TO PM NURSE FOR CARLOS.
[2018-03-21] MEDS: INSULIN GLARGINE, 100 UNIT/ML CARTRIDGE SQ SCH (22:18)
[2018-03-22] VITALS (20 sets, daily range): BP systolic 100–160; BP diastolic 38–58
--- NOTE | 2018-03-22 02:00 | NUR ---
EXECUTIVE BUSINESS COACH NOTES RECEIVED FROM JENNIFER FARIA. PT SLEEPING. EASILY AROUSABLE. NOT IN ANY DISTRESS. NO SOB NOTED. DENIES ANY PAIN OR DISCOMFORT AT THIS TIME. ON TELE SR @ 70 WITH MIDLINE PATENT & INTACT. CALL LIGHT WITHIN REACH. BED IN LOWEST POSITION. SR UP X2 FOR SAFETY. WILL CONTINUE TO MONITOR.
--- NOTE | 2018-03-22 06:26 | NUR ---
RINKMAN NOTES AWAKE & RESPONSIVE. NOT IN ANY DISTRESS. NO SOB NOTED. DENIES ANY PAIN OR DISCOMFORT AT THIS TIME. ON TELE SR @ 72 WITH MIDLINE PATENT & INTACT. KEPT ON NPO. AM CARE DONE. MONITORED ACCORDINGLY. CALL LIGHT WITHIN REACH. BED IN LOWEST POSITION. SR UP X2 FOR SAFETY. WILL ENDORSE TO NEXT SHIFT.
[2018-03-22 06:40] LABS: INR 1.17 (0.87-1.13)
--- NOTE | 2018-03-22 07:10 | NUR ---
[employer] GLAZER OPENING NOTE RECEIVED BEDSIDE REPORT FROM PM NURSE . PATIENT IS A/O X3, MICRONESIAN SPEAKING FEMALE. PT IS AWAKE AND RESPONSIVE IN BED.NPO SINCE MIDNIGHT FOR RENAL BIOPSY.CALL AMDE TO BLOOD BANK TO STAFF COUNSEL PLASMA SAFETY MAINTAINED. NO SOB, NO ACUTE DISTRESS NOTED AT THIS TIME.ON 1L O2 VIA NASAL CANULA, SPO2 96% .HAS R BRACHIAL MIDLINE WITH TKO.INTACT AND PATENT.BED IS LOCKED, LOW POSITION, SIDE RAILS UP X3,CALL LIGHT IN REACH. WILL CONTINUE TO MONITOR.
[2018-03-22] MEDS: PANTOPRAZOLE 40 MG TABLET.DR PO SCH (07:30)
[2018-03-22] MEDS: SEVELAMER CARBONATE 800 MG TABLET PO SCH ×3 (08:00→17:35)
[2018-03-22] MEDS: BLOOD SUGAR DIAGNOSTIC 1 EACH STRIP IN SCH ×4 (08:26→21:49)
[2018-03-22] MEDS: CYCLOPHOSPHAMIDE 25 MG PO SCH (08:27)
[2018-03-22] MEDS: predniSONE 20 MG TABLET PO SCH (08:47)
[2018-03-22] MEDS: BACITRACIN/POLYMYXIN B 15 GM TUBE TP SCH (08:48)
--- NOTE | 2018-03-22 09:15 | NUR ---
CEMENT BASED MATERIALS PUMP TENDER NOTES SEEN BY DR HOLLOWAY TOLD THAT TO LAY FLAT ON BED FOR 8 HRS AFTER THE PROCEDURE.FINGER FOODS RECOMMENDED.CLOSE MONITORING FOR BLEEDING AND POST PROCEDURE COMPLICATIONS.COLLECT URINE SAMPLE AND LINE THEM TO FIND OUT HEMATURIA.TRANSFUSED 1 FFP WITHOUT ANY COMPLICATIONS.WAITING FOR NEXT FFP TO BE GIVEN WITH DIALYSIS.DIALYSIS IS TO BE DONE TODAY.
[2018-03-22] MEDS ORDERED: MIDAZOLAM HCL 5MG/ML VIAL 25 MG/5 ML VIAL IV ONE (10:00)
[2018-03-22] MEDS ORDERED: FENTANYL PF 250MCG/5ML AMPUL IV ONE (10:00)
[2018-03-22] MEDS ORDERED: NALOXONE PREFILLED SYRINGE 2 MG/2 ML SYRINGE IV ONE (10:00)
[2018-03-22] MEDS ORDERED: DESMOPRESSIN 20 MCG in IV NS 0.9% 50 ML IV ONE (10:00)
[2018-03-22] MEDS ORDERED: SULFAMEHOX/TRIMETH 200-40MG/ 5 ML UDC PO SCH (10:00)
--- NOTE | 2018-03-22 11:10 | NUR ---
TECHNICAL PROGRAMS MANAGER NOTE PATIENT PICKED UP BY RADIOLOGY STAFF.DESMOPRESSIN IS ONGOING STARTED CLOSER TO MARINE PIPEFITTER HELPER PER RADIOLOGIST REQUEST.2ND BAG OF FPP GIVEN WITH DIALYSIS.STABLE VITAL SIGNS.NO SOB NO DISTRESS NOTED .PATIENT LEFT ROOM IN STABLE CONDITION.
--- NOTE | 2018-03-22 12:50 | NUR ---
MANAGER EMPLOYMENT NOTES PATIENT BACK FROM RENAL BIOPSY ,AXOX3.FAMILY WA SAT BEDSIDE.ABLE TO GIVE INSTRUCTIONS TO LIE FLAT ON BED FOR 8 HRS AND CAN HAVE FINGER FOOD.VITAL SIGNS MONITORING Q15MIN FOR 1 HR THEN Q 30 MIN FOR 2 HRS.WILL CONTINUE TO MONITOR.BIOPSY SITE IS CLEAN.NO BLEEDING NOTED.
--- NOTE | 2018-03-22 18:28 | NUR ---
PROM BURN OFF OPERATOR NOTES RECEIVED POST PROCEDURE INSTRUCTIONS FROM AND SHARMAINE.FLAT ON BED FOR 8 HRS.NOT GETTING UP FOR ANYTHING.TILL 2100.FINGER FOOD RECOMMENDED.CLOSE MONITORING OF THE PATIENT FOR 3HRS.VITAL SIGNS EVERY 15MIN FOR FIRST 1 HR VITAL SIGNS EVERY 30 MIN THERE AFTER FOR 2 HRS THEN NEEDED.COLLECT URINE IN CONTAINERS AND PLACE AT PATIENT ROOM TO MONITOR HEMATURIA.MARQUISE SPECIMEN 1,2,3..CONTINUE TO MONITOR.
--- NOTE | 2018-03-22 19:05 | NUR ---
IT PROJECT LEAD SHIFT END NOTE PATIENT IS A/O X3, KOREAN SPEAKING FEMALE. PT IS AWAKE AND RESPONSIVE IN BED.FAMILY AT BEDSIDE.SAFETY MAINTAINED. NO SOB, NO ACUTE DISTRESS NOTED DURING CARE.ON 1L O2 VIA NASAL CANULA, SPO2 96% .HAS R BRACHIAL MIDLINE S/P RENAL BIOPSY .NEED TO BE FLAT ON BED FOR 8 HRS,OK TO HAVE FINGER FOODS,URINE NEED TO BE COLLECTED TO MONITOR HEMATURIA ENDORSE ALL CARE INSTRUCTIONS TO PM NURSE..BED IS LOCKED, LOW POSITION, SIDE RAILS UP X3,CALL LIGHT IN REACH. ENDORSED TO PM NURSE FOR CARLOS.
--- NOTE | 2018-03-22 19:30 | NUR ---
TELE/RN OPENING NOTES PT RECEIVED AWAKE, CHILEAN SPEAKING. A/OX3. FAMILY AT BEDSIDE. SINUS RHYTHM, HR 85 ON THE MONITOR. REMINDED PT AND FAMILY TO STAY LYING FLAT IN BED UNTIL 2100 AND TO CALL FOR BEDPAN TO COLLECT URINE, PER MD. PT AND FAMILY VERBALIZE UNDERSTANDING. S/P RENAL BIOPSY. RIGHT ARM MIDLINE PATENT AND INTACT. RIGHT FEMORAL HD CATH. S/P HD TODAY WITH 500 ML OUT. BED IN LOW/LOCKED POSITION WITH CALL LIGHT IN REACH. SIDE RAILS UPX2. WILL CONTINUE TO MONITOR
[2018-03-22] MEDS: INSULIN GLARGINE, 100 UNIT/ML CARTRIDGE SQ SCH (21:50)
[2018-03-22] MEDS: INSULIN REGULAR, HUMAN 100 UNIT/ML 3 ML VIAL SQ PRN (21:50)
--- NOTE | 2018-03-22 21:51 | NUR ---
TELE/RN NOTES BLOOD LTRMA=625 PT WITH DECREASED APPETITE. DIDNT HAVE DINNER. ENCOURAGED SNACKS TOLERATED. PT VERBALIZED UNDERSTANDING
[2018-03-23] VITALS (8 sets, daily range): BP systolic 93–116; BP diastolic 34–44
[2018-03-23 06:41] LABS: EOSINOPHILS % (AUTO) 2.2 % (0.0-6.0); HEMATOCRIT 24 % (33-45); HEMOGLOBIN 8.2 g/dL (11.5-14.8); LYMPHOCYTES # (AUTO) 0.6 /CMM (0.8-4.8); LYMPHOCYTES % (AUTO) 4.7 % (20.0-44.0); MEAN CORPUSCULAR HGB CONC 34 g/dl (31.0-36.0); MEAN CORPUSCULAR VOLUME 95 fL (82-100); MONOCYTES # (AUTO) 0.2 /CMM (0.1-1.30); MONOCYTES % (AUTO) 1.5 % (2.0-12.0); NEUTROPHILS # (AUTO) 11.7 /CMM (1.8-8.9); NEUTROPHILS % (AUTO) 91.6 % (43.0-81.0); PLATELET COUNT (AUTO) 63 /CMM (150-450); RDW COEFFICIENT OF VARIATION 16.1 (11.5-15.0); RED BLOOD CELL COUNT(AUTO) 2.58 MIL/uL (4.0-5.2); WHITE BLOOD COUNT (AUTO) 12.8 K/uL (4.3-11.0)
--- NOTE | 2018-03-23 06:49 | NUR ---
TELE/RN CLOSING NOTES PT AWAKE, SITTING IN THE CHAIR, ON 1L O2 VIA NC, BREATHING EVEN AND UNLABORED. DENIES SOB OR PAIN AT THIS TIME. FREQUENTLY CHECKED FOR BLEEDING TO RIGHT RETROPERITONEAL AREA. SITE IS C/D/I. LAYED FLAT UNTIL 2100 ON 03/22/18. TELE MONITOR SHOWING SR WITH HR 70. ROSAMARIA MIDLINE PATENT AND INTACT. RIGHT FEMORAL HD CATH NOTED. COLLECTED EACH URINE AND NUMBERED DURING SHIFT. NO SIGNIFICANT CHANGES OVERNIGHT. KEPT PT COMFORTABLE DURING SHIFT. ALL NEEDS MET. BED IN LOW/LOCKED POSITION WITH CALL LIGHT IN REACH. SIDE RAILS UPX2. WILL ENDORSE TO DAY SHIFT RN CARLOS.
[2018-03-23 07:06] LABS: ALANINE AMINOTRANSFERASE 17 U/L (12-78); ALBUMIN 2.8 g/dL (3.4-5.0); ALKALINE PHOSPHATASE 30 U/L (46-116); ASPARTATE AMINOTRANSFERASE 23 U/L (15-37); BILIRUBIN,TOTAL 1.9 mg/dL (0.2-1.0); CALCIUM, SERUM 7.9 mg/dL (8.5-10.1); CARBON DIOXIDE 28 mmol/L (21-32); CHLORIDE 100 mmol/L (98-107); CREATININE 4.2 mg/dL (0.6-1.3); GLUCOSE 84 mg/dL (74-106); MAGNESIUM 2.1 mg/dL (1.8-2.4); PHOSPHORUS 6.5 mg/dL (2.5-4.9); POTASSIUM 3.6 mmol/L (3.5-5.1); SODIUM SERUM 139 mmol/L (136-145); TOTAL PROTEIN, SERUM 6.1 g/dL (6.4-8.2); UREA NITROGEN, BLOOD 62 mg/dL (7-18)
--- NOTE | 2018-03-23 07:30 | NUR ---
GL ACCOUNTANT NOTES PATIENT RECEIVED RESTING INSIDE ROOM. AWAKE, ALERT AND ORIENTED, VERBALLY RESPONSIVE AND RESPONDS TO VERBAL AND TACTILE STIMULI. BREATHING EVEN AND UNLABORED. DENIES ANY PAIN OR DISCOMFORT AT THIS TIME. FAMILY AT BEDSIDE. IV SITE INTACT AND PATENT, NO BLEEDING AT THIS TIME. CONTINUE ON URINE COLLECTION. WILL CONTINUE TO MONITOR. BED LOCKED AND IN LOW POSITION. BILATERAL UPPER SIDE RAILS UP AND LOCKED. CALL LIGHT WITHIN EASY REACH
[2018-03-23 08:12] LABS: IMMUNOGLOBULIN A, SERUM 171 mg/dL (64-422); IMMUNOGLOBULIN G, SERUM 1049 mg/dL (700-1600); IMMUNOGLOBULIN M, SERUM 207 mg/dL (26-217)
[2018-03-23] MEDS: BLOOD SUGAR DIAGNOSTIC 1 EACH STRIP IN SCH ×4 (08:26→22:54)
[2018-03-23] MEDS: SEVELAMER CARBONATE 800 MG TABLET PO SCH ×3 (08:27→17:30)
[2018-03-23] MEDS: predniSONE 20 MG TABLET PO SCH (08:27)
[2018-03-23] MEDS: PANTOPRAZOLE 40 MG TABLET.DR PO SCH (08:27)
[2018-03-23] MEDS: CYCLOPHOSPHAMIDE 25 MG PO SCH (08:28)
--- NOTE | 2018-03-23 08:45 | NUR ---
TEL NURSE called back and orders given with 2 units of PRBC with HD today
[2018-03-23 08:48] LABS: EOSINOPHILS % (MANUAL) 1 % (0-4); LYMPHOCYTES % (MANUAL) 10 % (16-48); MONOCYTES % (MANUAL) 5 % (0-11.0); NEUTROPHILS % (MANUAL) 84 (42-76)
[2018-03-23] MEDS: BACITRACIN/POLYMYXIN B 15 GM TUBE TP SCH (09:06)
--- NOTE | 2018-03-23 11:07 | NUR ---
TEST CELL TECHNICIAN NOTES PATIENT RESTING INSIDE ROOM, BREATHING EVEN AND UNLABORED. ON O2 AT 1L/MIN VIA NC WITH O2 SAT AT 95%. NO SOB OR ACUTE DISTRESS. ATTEMPTED TO WEAN OFF OXYGEN. PATIENT PLACED ON ROOM AIR. O2 SAT DECREASED DOWN TO 86-88% IN ROOM AIR. NO SOB OR ACUTE DISTRESS NOTED. PATIENT PLACED BACK TO OXYGEN AT 1L/MIN VIA NC. O2 SAT WENT BACK UP TO 95%. WILL CONTINUE TO MONITOR
[2018-03-23] MEDS: INSULIN REGULAR, HUMAN 100 UNIT/ML 3 ML VIAL SQ PRN ×3 (12:35→23:02)
--- NOTE | 2018-03-23 18:58 | NUR ---
SHIPBUILDING DRAFTSPERSON NOTES PATIENT RESTING INSIDE ROOM, AWAKE, ALERT AND ORIENTED, VERBALLY RESPONSIVE AND RESPONDS TO VERBAL AND TACTILE STIMULI. NO SOB OR ACUTE DISTRESS NOTED, CONTINUE WITH O2 AT 1L/MIN VIA NC. DENIES ANY PAIN OR DISCOMFORT. IV SITE INTACT AND PATENT, NO SWELLING OR BLEEDING NOTED. WILL ENDORSE TO INCOMING SHIFT FOR CARLOS. BED LOCKED AND IN LOW POSITION, BILATERAL UPPER SIDE RAILS UP AND LOCKED. MAINTAINED ISOLATION PRECAUTIONS. CALL LIGHT WITHIN EASY REACH
--- NOTE | 2018-03-23 19:30 | NUR ---
TELE/RN NOTES RECEIVED PT IN STABLE CONDITION. A&OX4. NORWEGIAN SPEAKING. CALM & COOPERATIVE. O2 2L NC, SAT 97% ON CONTINUES PULSE OX, NO SOB NOTED. NSR. R UPPER ARM MIDLINE, CDI, PATENT. R FEMORAL HD CATH, DRY & INTACT. R FLANK BAND-AID, CDI. L BUTTOCK STG 2, MEPILEX IN PLACE. AT BEDSIDE (TRANSLATING TO PATIENT) AND BOTH MADE AWARE OF PLAN OF CARE INCLUDING URINE COLLECTION AND HD IN AM. BOTH VERBALIZED UNDERSTANDING. BED AT LOWEST POSITION AND LOCKED, SIDE RAILS X 3 UP. SIDE TABLE AND CALL DEL CID WITHIN REACH. BED ALARM ON FOR SAFETY MEASURES.
[2018-03-23] MEDS: INSULIN GLARGINE, 100 UNIT/ML CARTRIDGE SQ SCH (23:01)
[2018-03-24] VITALS: BP 108/42
[2018-03-24 04:00] VITALS: BP 112/40
[2018-03-24] MEDS: BLOOD SUGAR DIAGNOSTIC 1 EACH STRIP IN SCH ×4 (06:38→21:32)
--- NOTE | 2018-03-24 06:46 | NUR ---
TELE/RN NOTES PATIENT CALM & COOPERATIVE. O2 2L NC, SAT 97%. NSR WITH 1 EPISODE OF PVC. LOW URINE OUTPUT X 5, BMX 4. C/O OF PAIN TO ANUS/BUTTOCKS AREA, EXCORIATED. KEPT CLEAN AND APPLIED Z-GUARD. NO BLEEDING NOTED. BS 93. SNACKS GIVEN. HD NOW IN PROGRESS. NO OTHER CONCERNS MADE. ALL NEEDS MET. BED AT LOWEST POSITION AND LOCKED, SR X 3 UP. SIDE TABLE AND CALL DEL CID WITHIN REACH. BED ALARM ON FOR SAFETY PRECAUTION. WILL ENDORSED TO AM SHIFT FOR CONTINUITY OF CARE.
--- NOTE | 2018-03-24 07:23 | NUR ---
INSTITUTE SCIENTIST OPENING NOTES PATIENT RECEIVED AWAKE IN BED WITH HEMODIALYSIS ONGOING VIA FEMORAL HD CATHETER. A/O X4. VERBALLY RESPONSIVE, NO C/O PAIN OR DISCOMFORTS VOICED AT THIS TIME. ON 02 VIA N/C @ 2LPM, BREATHING EVEN AND UNLABORED. ON TELEMONITORING WITH CURRENT READING OF NSR WITH HR OF 76, NO C/O OF ANY CARDIAC DISTRESS VOICED. ROSAMARIA MIDLINE INTACT AND PATENT. CONTINUE ON URINE COLLECTION. HOB ELEVATED. BED LOCKED AND IN LOW POSITION. BILATERAL UPPER SIDE RAILS UP AND LOCKED. CALL LIGHT WITHIN EASY REACH. WILL CONTINUE TO MONITOR PT .
[2018-03-24] MEDS: PANTOPRAZOLE 40 MG TABLET.DR PO SCH (07:50)
[2018-03-24] MEDS: SEVELAMER CARBONATE 800 MG TABLET PO SCH ×3 (07:50→17:44)
[2018-03-24 08:00] VITALS: BP 108/46
--- NOTE | 2018-03-24 08:38 | NUR ---
RN NOTES PT'S HEMODIALYSIS FINISHED WITHOUT ANY PROBLEMS NOTED DURING THE PROCEDURE. PT ALERT AND ORIENTED X4 IN NO ACUTE SIGN OF DISTRESS. OUTPUT IS 1500 ML. S/P HD V/S: BP 108/46MMHHG, P 89, R 17 AND T 98.5F. WILL CONTINUE TO MONITOR.
[2018-03-24] MEDS: CYCLOPHOSPHAMIDE 25 MG PO SCH (09:29)
[2018-03-24] MEDS: predniSONE 20 MG TABLET PO SCH (09:29)
[2018-03-24] MEDS: BACITRACIN/POLYMYXIN B 15 GM TUBE TP SCH (09:30)
[2018-03-24] MEDS: INSULIN REGULAR, HUMAN 100 UNIT/ML 3 ML VIAL SQ PRN ×2 (11:51→21:33)
[2018-03-24 12:00] VITALS: BP 113/45
--- NOTE | 2018-03-24 12:00 | NUR ---
RN NOTES PATIENT NOTED WITH BLOOD SUGAR OF 137MG/DL, PATIENT REFUSED INSULIN COVERAGE STATING THAT IT'S NOT THAT HIGH. WILL CONTINUE TO MONITOR
[2018-03-24] MEDS ORDERED: EPOETIN ALFA (10,000 UNIT) 10,000 UNIT/ML VIAL IV ONE (13:00)
--- NOTE | 2018-03-24 14:26 | NUR ---
RN NOTES PATIENT WITH HGB OF 8.2, EPOGIN 10,000 UNITS ORDERED. WILL CONTINUE TO MONITOR.
[2018-03-24 16:00] VITALS: BP_SYST 103; BP_SYST 108; BP_DIAS 40; BP_DIAS 46
--- NOTE | 2018-03-24 18:38 | NUR ---
CEMENT FINISHER APPRENTICE CLOSING NOTES PATIENT SITTING ON SHIRA-CHAIR AT THIS TIME WITH FAMILY IN ROOM. A/O X4. CYPRIOT SPEAKING. NO SIGNIFICANT CHANGES IN STATUS NOTED THROUGHOUT THE DAY. ON 02 VIA N/C @ 2LPM, BREATHING EVEN WITH NO SOB NOTED. ON TELE-MONITORING WITH CURRENT READING OF NSR WITH HR OF 78, NO CARDIAC DISTRESS NOTED. RIGHT FEMORAL HD CATHETER IN PLACE WITH NO BLEEDING AT SITE NOTED. PT WITH ROSAMARIA MIDLINE INTACT AND PATENT. URINE COLLECTION CONTINUES. ALL SAFETY MEASURES MAINTAINED. CALL LIGHT WITHIN REACH. WILL ENDORSE TO LOG ROLLER NURSE FOR CARLOS .
[2018-03-24 20:00] VITALS: BP 108/32
--- NOTE | 2018-03-24 20:05 | NUR ---
RN NOTES RECEIVED PATIENT AWAKE SITTING ON A CHAIR WATCHING TV WITH NO RESPIRATORY DISTRESS OR SHORTNESS OF BREATH. BREATHING EVEN AND UNLABORED. NO COMPLAINT OF PAIN OF THIS TIME. ALERT AND ORIENTED, SINHALA SPEAKING. WILL CONTINUE TO MONITOR.
[2018-03-24] MEDS: INSULIN GLARGINE, 100 UNIT/ML CARTRIDGE SQ SCH (21:32)
[2018-03-25] VITALS: BP 108/43
[2018-03-25 04:00] VITALS: BP 110/45
[2018-03-25 06:51] LABS: EOSINOPHILS % (AUTO) 0.7 % (0.0-6.0); HEMATOCRIT 25 % (33-45); HEMOGLOBIN 8.4 g/dL (11.5-14.8); LYMPHOCYTES # (AUTO) 0.9 /CMM (0.8-4.8); LYMPHOCYTES % (AUTO) 5.9 % (20.0-44.0); MEAN CORPUSCULAR HGB CONC 33 g/dl (31.0-36.0); MEAN CORPUSCULAR VOLUME 95 fL (82-100); MONOCYTES # (AUTO) 0.6 /CMM (0.1-1.30); MONOCYTES % (AUTO) 4.1 % (2.0-12.0); NEUTROPHILS # (AUTO) 13.6 /CMM (1.8-8.9); NEUTROPHILS % (AUTO) 89.3 % (43.0-81.0); PLATELET COUNT (AUTO) 65 /CMM (150-450); RDW COEFFICIENT OF VARIATION 16.4 (11.5-15.0); RED BLOOD CELL COUNT(AUTO) 2.64 MIL/uL (4.0-5.2); WHITE BLOOD COUNT (AUTO) 15.2 K/uL (4.3-11.0)
[2018-03-25] MEDS: INSULIN REGULAR, HUMAN 100 UNIT/ML 3 ML VIAL SQ PRN ×4 (07:04→21:57)
[2018-03-25] MEDS: BLOOD SUGAR DIAGNOSTIC 1 EACH STRIP IN SCH ×4 (07:04→21:52)
[2018-03-25 07:06] LABS: CALCIUM, SERUM 8.2 mg/dL (8.5-10.1); CARBON DIOXIDE 28 mmol/L (21-32); CHLORIDE 107 mmol/L (98-107); CREATININE 4.4 mg/dL (0.6-1.3); GLUCOSE 53 mg/dL (74-106); MAGNESIUM 2.2 mg/dL (1.8-2.4); PHOSPHORUS 5.7 mg/dL (2.5-4.9); POTASSIUM 3.6 mmol/L (3.5-5.1); SODIUM SERUM 144 mmol/L (136-145); UREA NITROGEN, BLOOD 61 mg/dL (7-18)
--- NOTE | 2018-03-25 07:30 | NUR ---
SHORTHAND REPORTER INITIAL NOTES: RECEIVED PT IN BED, AWAKE AND VERBAL. BRUNEIAN SPEAKING WITH SOME NIGERIAN. AT BEDSIDE. ON O2 VIA NC AT 2LPM, O2 SATURATION 98%. NO SOB NOTED AT THIS TIME. ON TELE MONITOR NSR. BILATERAL SIDE RAILS UP, BED ALARM ON FOR PT SAFETY. R ARM MIDLINE IN PLACE, INTACT AND FLUSHES WELL. R FEMORAL HD CATH NOTED WELL. NO S/S OF INFECTION. PT DENIES ANY PAIN OR DISCOMFORT AT THIS TIME. WILL CONTINUE TO MONITOR.
[2018-03-25 08:00] VITALS: BP 102/45
[2018-03-25] MEDS: PANTOPRAZOLE 40 MG TABLET.DR PO SCH (08:13)
[2018-03-25] MEDS: CYCLOPHOSPHAMIDE 25 MG PO SCH (08:14)
[2018-03-25] MEDS: SEVELAMER CARBONATE 800 MG TABLET PO SCH ×3 (08:14→17:14)
[2018-03-25] MEDS: predniSONE 20 MG TABLET PO SCH (08:14)
[2018-03-25] MEDS: BACITRACIN/POLYMYXIN B 15 GM TUBE TP SCH (08:15)
[2018-03-25 09:19] LABS: LYMPHOCYTES % (MANUAL) 6 % (16-48); MONOCYTES % (MANUAL) 4 % (0-11.0); NEUTROPHILS % (MANUAL) 90 (42-76)
[2018-03-25 12:00] VITALS: BP 111/45
--- NOTE | 2018-03-25 13:00 | NUR ---
RADIOLOGIC THERAPIST NOTES: FAMILY AT BEDSIDE THROUGHOUT THE DAY. PT ABLE TO ASSIST WITH REPOSITIONING. MEDICATIONS GIVEN WITHOUT COMPLICATION. PT TO HAVE HD TOMORROW MORNING.
[2018-03-25 16:00] VITALS: BP 97/42
[2018-03-25] MEDS: Z GUARD REMEDY 2 OZ OINT TP PRN (17:18)
--- NOTE | 2018-03-25 18:30 | NUR ---
COMMUNICATIONS EDITOR END NOTES: PT REMAINS IN BED ASLEEP BUT EASY TO AROUSE. DENIES ANY PAIN OR DISCOMFORT AT THIS TIME. PT REMAINS ON O2 VIA NC AT 2LPM, SATURATION 98%, NO SOB NOTED. BED IN LOW LOCKED POSITION, CALL LIGHT WITHIN REACH. WILL ENDORSE TO PM SHIFT NURSE FOR CONTINUITY OF CARE.
[2018-03-25 20:00] VITALS: BP 112/50
--- NOTE | 2018-03-25 20:00 | NUR ---
RN INITIAL NOTES: RECEIVED PT IN BED, AWAKE AND VERBAL. ZIMBABWEAN SPEAKING. ON O2 VIA NC AT 2LPM, O2 SATURATION 98%. NO SOB NOTED AT THIS TIME. ON TELE MONITOR NSR. BILATERAL SIDE RAILS UP, BED ALARM ON FOR PT SAFETY. R ARM MIDLINE IN PLACE, INTACT AND FLUSHES WELL. R FEMORAL HD CATH NOTED WELL. NO S/S OF INFECTION. PT DENIES ANY PAIN OR DISCOMFORT AT THIS TIME. WILL CONTINUE TO MONITOR.
[2018-03-25] MEDS: INSULIN GLARGINE, 100 UNIT/ML CARTRIDGE SQ SCH (21:54)
[2018-03-26] VITALS: BP 112/43
[2018-03-26 04:00] VITALS: BP 102/42
--- NOTE | 2018-03-26 06:40 | NUR ---
RN CLOSING NOTES PT RESTING IN BED . A/O X4. JAPANESE SPEAKING. NO SIGNIFICANT CHANGES IN STATUS NOTED THROUGHOUT THE DAY. ON 02 VIA N/C @ 2LPM, BREATHING EVEN WITH NO SOB NOTED. ON TELE-MONITORING WITH CURRENT READING OF NSR WITH HR OF 70, NO CARDIAC DISTRESS NOTED. RIGHT FEMORAL HD CATHETER IN PLACE WITH NO BLEEDING AT SITE NOTED. PT WITH ROSAMARIA MIDLINE INTACT AND PATENT. ALL SAFETY MEASURES MAINTAINED. CALL LIGHT WITHIN REACH. WILL ENDORSE TO CRACKING AND FANNING MACHINE OPERATOR NURSE FOR CARLOS .
[2018-03-26 07:04] LABS: BASOPHILS % (AUTO) 0.2 % (0.0-2.0); EOSINOPHILS % (AUTO) 0.8 % (0.0-6.0); HEMATOCRIT 25 % (33-45); HEMOGLOBIN 8.2 g/dL (11.5-14.8); LYMPHOCYTES # (AUTO) 0.9 /CMM (0.8-4.8); LYMPHOCYTES % (AUTO) 6.9 % (20.0-44.0); MEAN CORPUSCULAR HGB CONC 33 g/dl (31.0-36.0); MEAN CORPUSCULAR VOLUME 94 fL (82-100); MONOCYTES # (AUTO) 0.6 /CMM (0.1-1.30); MONOCYTES % (AUTO) 4.6 % (2.0-12.0); NEUTROPHILS # (AUTO) 11.9 /CMM (1.8-8.9); NEUTROPHILS % (AUTO) 87.5 % (43.0-81.0); PLATELET COUNT (AUTO) 66 /CMM (150-450); RDW COEFFICIENT OF VARIATION 16.4 (11.5-15.0); RED BLOOD CELL COUNT(AUTO) 2.61 MIL/uL (4.0-5.2); WHITE BLOOD COUNT (AUTO) 13.6 K/uL (4.3-11.0)
[2018-03-26 07:07] LABS: CALCIUM, SERUM 8.1 mg/dL (8.5-10.1); CARBON DIOXIDE 26 mmol/L (21-32); CHLORIDE 103 mmol/L (98-107); GLUCOSE 94 mg/dL (74-106); MAGNESIUM 2.2 mg/dL (1.8-2.4); PHOSPHORUS 4.6 mg/dL (2.5-4.9); POTASSIUM 3.3 mmol/L (3.5-5.1); SODIUM SERUM 140 mmol/L (136-145); UREA NITROGEN, BLOOD 71 mg/dL (7-18)
--- NOTE | 2018-03-26 07:30 | NUR ---
ORACLE EBS CONSULTANT INITIAL NOTES: RECEIVED PT IN BED AWAKE, FAMILY MEMBER AT BEDSIDE. ALERT AND ORIENTED, CHINESE SPEAKING WITH MINIMAL WELSH. DENIES ANY PAIN OR DISCOMFORT AT THIS TIME. O2 ON VIA NC AT 2LPM, NO SOB NOTED OR RESPIRATORY DISTRESS. BED IN LOW, LOCKED POSITION, CALL LIGHT WITHIN REACH. PLAN OF CARE DISCUSSED WITH PT AND FAMILY MEMBER. WILL CONTINUE TO MONITOR.
[2018-03-26] MEDS: BLOOD SUGAR DIAGNOSTIC 1 EACH STRIP IN SCH ×3 (07:42→16:54)
[2018-03-26] MEDS: SEVELAMER CARBONATE 800 MG TABLET PO SCH ×3 (07:54→17:52)
[2018-03-26] MEDS: PANTOPRAZOLE 40 MG TABLET.DR PO SCH (07:54)
[2018-03-26 08:00] VITALS: BP 115/52
--- NOTE | 2018-03-26 08:01 | NUR ---
WOUND CARE CONSULT WOUND CARE RECEIVED CONSULT FOR WOUND. WOUND CARE WILL DEFER CONSULT AND TREATMENT PLANS TO SURGICAL TEAM WHO ARE CURRENTLY FOLLOWING. WILL SEE PRN.
[2018-03-26] MEDS: CYCLOPHOSPHAMIDE 25 MG PO SCH (08:28)
[2018-03-26] MEDS: predniSONE 20 MG TABLET PO SCH (08:28)
[2018-03-26] MEDS: BACITRACIN/POLYMYXIN B 15 GM TUBE TP SCH (08:29)
--- NOTE | 2018-03-26 09:00 | NUR ---
RN HD NOTE: HD BEING PERFORMED AT BEDSIDE AT THIS TIME.
[2018-03-26 09:20] LABS: LYMPHOCYTES % (MANUAL) 3 % (16-48); MONOCYTES % (MANUAL) 7 % (0-11.0); NEUTROPHILS % (MANUAL) 90 (42-76)
[2018-03-26 12:00] VITALS: BP 104/51
[2018-03-26] MEDS: INSULIN REGULAR, HUMAN 100 UNIT/ML 3 ML VIAL SQ PRN ×2 (12:02→17:55)
--- NOTE | 2018-03-26 14:30 | NUR ---
MANUFACTURING SPECIALIST NOTES: MD ARNALDO CONNOR AT BEDSIDE, EXPLAINING TO FAMILY ABOUT DISCHARGE ORDER FOR TODAY.
[2018-03-26 16:00] VITALS: BP 104/42
--- NOTE | 2018-03-26 18:40 | NUR ---
MANAGER FOREIGN NOTES: DISCHARGE ORDER RECEIVED. MULTIPLE FAMILY MEMBERS AT BEDSIDE. PT EDUCATION PROVIDED TO PT AND SON IN LAW. EDUCATION HANDOUTS GIVEN IN IRISH FOR PT. EXPLAINED MEDICATION LIST (RX GIVEN), FOLLOW UP WITH PCP WITHIN ONE WEEK, DIALYSIS SCHEDULE (MWF) AND ACCU CHECK WITH SLIDING SCALE INSULIN COVERAGE. EXPLAINED DIABETIC DIET, INCLUDING CARB CONTROL AND LIMITING SUGARS, AND WOUND CARE TREATMENT ORDERED. BOTH PT AND SON IN LAW VERBALIZED UNDERSTANDING OF DISCHARGE ORDER AND PLAN OF CARE AT HOME. BELONGINGS RELEASED TO PT, FORM SIGNED AND PLACED IN CHART. PT CHANGED FROM HOSPITAL GOWN TO REGULAR CLOTHES. FAMILY REMAINS AT BEDSIDE GATHERING BELONGINGS AND PREPARING FOR DISCHARGE. WILL ENDORSE TO PM SHIFT RN FOR REMOVAL OF MID LINE AND HOSPITAL ID BAND UPON DEPARTURE.
--- NOTE | 2018-03-26 19:39 | NUR ---
ACOUSTIC INTELLIGENCE SPECIALIST NOTES RECEIVED PT ON BED. A/OX4. FAMILY AT BEDSIDE. MIDLINE REMOVED.
[2018-04-02] MEDS ORDERED: VALA500T PO (09:50)
[2018-04-02] MEDS ORDERED: ACYC5CRE2 TP (09:50)
[2018-04-02] MEDS ORDERED: GABA300C PO (09:50)
== END 2018-03-26 20:00 | disposition home or self-care (01) | DRG 346 ==
LOC: ER 01:35 → TELE1 04:08 → TELE-TD 05:06 → MEDSG1 03-13 12:19 → TELE1 03-16 08:23 → MEDSG1 03-19 11:08 → TELE1 03-20 09:52
PROVIDERS: ADMIT Hospitalist; ATTEND Hospitalist
PROC: 30233N1 Transfusion of Nonautologous Red Blood Cells into Peripheral Vein, Percutaneous Approach (ICD-10-PCS; 2018-03-12)
PROC: B546ZZA Ultrasonography of Right Subclavian Vein, Guidance (ICD-10-PCS; 2018-03-14)
PROC: 05H533Z Insertion of Infusion Device into Right Subclavian Vein, Percutaneous Approach (ICD-10-PCS; 2018-03-14)
PROC: 5A1D70Z Performance of Urinary Filtration, Intermittent, Less than 6 Hours Per Day (ICD-10-PCS; 2018-03-15)
PROC: 0JHL3XZ Insertion of Tunneled Vascular Access Device into Right Upper Leg Subcutaneous Tissue and Fascia, Percutaneous Approach (ICD-10-PCS; 2018-03-15)
PROC: B54BZZA Ultrasonography of Right Lower Extremity Veins, Guidance (ICD-10-PCS; 2018-03-15)
PROC: 06HM33Z Insertion of Infusion Device into Right Femoral Vein, Percutaneous Approach (ICD-10-PCS; 2018-03-15)
PROC: 5A1D70Z Performance of Urinary Filtration, Intermittent, Less than 6 Hours Per Day (ICD-10-PCS; 2018-03-16)
PROC: 5A1D70Z Performance of Urinary Filtration, Intermittent, Less than 6 Hours Per Day (ICD-10-PCS; 2018-03-17)
PROC: 5A1D70Z Performance of Urinary Filtration, Intermittent, Less than 6 Hours Per Day (ICD-10-PCS; 2018-03-19)
PROC: 5A1D70Z Performance of Urinary Filtration, Intermittent, Less than 6 Hours Per Day (ICD-10-PCS; 2018-03-21)
PROC: 30233R1 Transfusion of Nonautologous Platelets into Peripheral Vein, Percutaneous Approach (ICD-10-PCS; 2018-03-21)
PROC: 0TB03ZX Excision of Right Kidney, Percutaneous Approach, Diagnostic (ICD-10-PCS; principal; 2018-03-22)
PROC: 30233K1 Transfusion of Nonautologous Frozen Plasma into Peripheral Vein, Percutaneous Approach (ICD-10-PCS; principal; 2018-03-22)
PROC: 5A1D70Z Performance of Urinary Filtration, Intermittent, Less than 6 Hours Per Day (ICD-10-PCS; principal; 2018-03-22)
PROC: 5A1D70Z Performance of Urinary Filtration, Intermittent, Less than 6 Hours Per Day (ICD-10-PCS; 2018-03-24)
PROC: 5A1D70Z Performance of Urinary Filtration, Intermittent, Less than 6 Hours Per Day (ICD-10-PCS; 2018-03-26)
DX: M30.0 Polyarteritis nodosa (principal); J96.01 Acute respiratory failure with hypoxia; E43 Unspecified severe protein-calorie malnutrition; I50.33 Acute on chronic diastolic (congestive) heart failure; N17.9 Acute kidney failure, unspecified; C90.00 Multiple myeloma not having achieved remission; I28.8 Other diseases of pulmonary vessels; L89.322 Pressure ulcer of left buttock, stage 2; I13.0 Hypertensive heart and chronic kidney disease with heart failure and stage 1 through stage 4 chronic kidney disease, or unspecified chronic kidney disease; N28.1 Cyst of kidney, acquired; R91.1 Solitary pulmonary nodule; M31.31 Wegener's granulomatosis with renal involvement; E11.22 Type 2 diabetes mellitus with diabetic chronic kidney disease; D69.6 Thrombocytopenia, unspecified; B19.10 Unspecified viral hepatitis B without hepatic coma; D47.2 Monoclonal gammopathy; D63.8 Anemia in other chronic diseases classified elsewhere; E66.9 Obesity, unspecified; N18.9 Chronic kidney disease, unspecified; Z87.891 Personal history of nicotine dependence; Z90.710 Acquired absence of both cervix and uterus; Z99.2 Dependence on renal dialysis; Z90.49 Acquired absence of other specified parts of digestive tract; Z79.84 Long term (current) use of oral hypoglycemic drugs; Z79.899 Other long term (current) drug therapy; Z68.30 Body mass index [BMI] 30.0-30.9, adult; K29.70 Gastritis, unspecified, without bleeding; E78.5 Hyperlipidemia, unspecified; K83.8 Other specified diseases of biliary tract; M19.90 Unspecified osteoarthritis, unspecified site; I77.89 Other specified disorders of arteries and arterioles; E46 Unspecified protein-calorie malnutrition
CPT/HCPCS: 36415; 36569; 36600; 71045-TC; 71250-TC; 76770-TC; 76942-TC; 77012-TC; 80048-TC; 80053-TC; 80061-TC; 80076-TC; 81000-TC; 82272-TC; 82306; 82550-TC; 82570-TC; 82595; 82652; 82728-TC; 82784; 82945-TC; 82962-TC; 83516; 83520; 83540-TC; 83735-TC; 83880; 83970; 84100-TC; 84155; 84155-TC; 84165; 84300-TC; 84439-TC; 84443-TC; 84484-TC; 85025-TC; 85027-TC; 85610-TC; 85652-TC; 85730-TC; 86140-TC; 86256; 86334; 86704; 86705; 86706; 86803; 86850-TC; 86921-TC; 87081-TC; 87086-TC; 87340; 90935-TC; 93307-TC; 94799-TC; A4216; A4606; C1751; C9113; J0885; J1815; J1940; J1956; J2250; J2310; J2405; J2543; J2597; J2930; J3010; J3490; J7030; J7040; J7050; J7060; J8530; P9016-BL; P9017-BL; P9034-BL; P9047; Z7610

== ENCOUNTER 2018-03-30 07:11 | Inpatient (IN) | payer OTHER ==
[~2018-03-30] VITALS: Ht 154.9 cm; Wt 92.1 kg
[~2018-03-30 07:11] MED LIST changes: -GLIM2TAB2 PO; -METF-442 PO
--- NOTE | 2018-03-30 07:15 | NUR ---
[id number] C/O HYPOGLYCEMIA, FOUND ALTERED AT HOME BY FAMILY. BGL=56 GIVEN D10 NOW BGL 144. PER EMS, MORE ALERT NOW. A/O X3. NEG ACUTE DISTRESS. VSS. STABLE CONDITION. SAFETY MEASURES IN PLACE.
--- NOTE | 2018-03-30 07:41 | NUR ---
PROVIDED WITH BREAKFAST TRAY PER MD
--- NOTE | 2018-03-30 07:43 | NUR ---
MACHINE COREMAKER AT FOR BLOOD DRAW.
--- NOTE | 2018-03-30 07:44 | NUR ---
PT UNABLE TO PROVIDE URINE SAMPLE AT THIS TIME. Addendum: 03/30/18 at 1004 by [place] [id number] T
[2018-03-30 07:56] LABS: BASOPHILS % (AUTO) 0.1 % (0.0-2.0); EOSINOPHILS % (AUTO) 1.3 % (0.0-6.0); HEMATOCRIT 23 % (33-45); HEMOGLOBIN 7.6 g/dL (11.5-14.8); LYMPHOCYTES # (AUTO) 0.3 /CMM (0.8-4.8); LYMPHOCYTES % (AUTO) 3.2 % (20.0-44.0); MEAN CORPUSCULAR HEMOGLOBIN 31 PG (26.0-33.0); MEAN CORPUSCULAR HGB CONC 33 g/dl (31.0-36.0); MEAN CORPUSCULAR VOLUME 96 fL (82-100); MONOCYTES # (AUTO) 0.2 /CMM (0.1-1.30); NEUTROPHILS # (AUTO) 8.9 /CMM (1.8-8.9); NEUTROPHILS % (AUTO) 93.4 % (43.0-81.0); RDW COEFFICIENT OF VARIATION 16.8 (11.5-15.0); RED BLOOD CELL COUNT(AUTO) 2.43 MIL/uL (4.0-5.2); WHITE BLOOD COUNT (AUTO) 9.5 K/uL (4.3-11.0)
[2018-03-30 08:07] LABS: CALCIUM, SERUM 7.9 mg/dL (8.5-10.1); CARBON DIOXIDE 26 mmol/L (21-32); CHLORIDE 101 mmol/L (98-107); CREATININE 6.3 mg/dL (0.6-1.3); GLUCOSE 88 mg/dL (74-106); SODIUM SERUM 139 mmol/L (136-145); UREA NITROGEN, BLOOD 59 mg/dL (7-18)
[2018-03-30 08:13] LABS: ALANINE AMINOTRANSFERASE 17 U/L (12-78); ALBUMIN 2.6 g/dL (3.4-5.0); ALKALINE PHOSPHATASE 39 U/L (46-116); ASPARTATE AMINOTRANSFERASE 18 U/L (15-37); BILIRUBIN,DIRECT 0.3 mg/dL (0.0-0.2); BILIRUBIN,TOTAL 0.8 mg/dL (0.2-1.0); TOTAL PROTEIN, SERUM 6.2 g/dL (6.4-8.2)
[2018-03-30 08:14] LABS: TROPONIN I 0.022 ng/mL (0.00-0.056)
[2018-03-30 08:15] LABS: INR 1.01 (0.87-1.13)
[2018-03-30 08:17] LABS: PLATELET COUNT (AUTO) 42 /CMM (150-450)
--- NOTE | 2018-03-30 08:25 | NUR ---
EPIC PAGED FOR ADMISSION
[2018-03-30 08:39] LABS: LYMPHOCYTES % (MANUAL) 6 % (16-48); MONOCYTES % (MANUAL) 2 % (0-11.0); NEUTROPHILS % (MANUAL) 92 (42-76)
[2018-03-30] MEDS ORDERED: IV D5/0.45 NACL 1,000 ML IV ONE (09:00)
[2018-03-30] MEDS ORDERED: SULF-10 PO (09:25)
[2018-03-30] MEDS ORDERED: INSU100V27 SQ (09:25)
[2018-03-30] MEDS ORDERED: INSU100V7 SQ (09:25)
[2018-03-30] MEDS ORDERED: CALC668T PO (09:28)
--- NOTE | 2018-03-30 10:02 | NUR ---
GIVEN REPORT MONICA FARIA 3RD FLOOR TELE.
--- NOTE | 2018-03-30 10:15 | NUR ---
MS RN NOTES PATIENT ARRIVED FROM ER VIA GURNEY. ALERT, ORIENTED X3 KHMER SPEAKING. NO SOB OR ACUTE DISTRESS NOTED. PATIENT WITH FAMILY AT BEDSIDE. PATIENT ORIENTED TO ROOM. BED IN LOW LOCKED POSITION. CALL LIGHT WITHIN REACH. PATIENT IN STABLE CONDITION. WITH TWO PERIPHERAL IV ON BILATERAL HANDS INTACT PATENT. WILL CONTINUE TO MONITOR.
[2018-03-30] MEDS ORDERED: Z GUARD REMEDY 2 OZ OINT TP PRN (11:00)
[2018-03-30] MEDS ORDERED: ONDANSETRON HCL/PF 4 MG/2 ML VIAL IVP PRN (11:00)
[2018-03-30] MEDS ORDERED: EPOETIN ALFA (10,000 UNIT) 10,000 UNIT/ML VIAL IV ONE (11:00)
[2018-03-30] MEDS ORDERED: HYDROCODONE/APAP 5/325MG 1 EACH TABLET PO PRN (11:00)
[2018-03-30] MEDS ORDERED: ACETAMINOPHEN 325 MG TABLET PO PRN (11:00)
--- NOTE | 2018-03-30 12:30 | NUR ---
SCRUBBER SYSTEM ATTENDANT NOTES PATIENT STARTED HD WILL CONTINUE TO MONITOR.
[2018-03-30] MEDS ORDERED: ALBUTEROL FS 2.5 MG/0.5 ML VIAL.NEB NEB PRN (13:30)
--- NOTE | 2018-03-30 14:00 | NUR ---
MS RN NOTES PATIENT TRANSFERRED TO [facility] FOR CONTACT ISOLATION.
[2018-03-30] MEDS: CALCIUM ACETATE 667 MG TABLET PO SCH ×2 (14:02→17:28)
--- NOTE | 2018-03-30 15:20 | NUR ---
MS RN NOTES PATIENT COMPLETED HD WITH 1.9L OUTPUT TOLERATED WELL WILL CONTINUE TO MONITOR.
--- NOTE | 2018-03-30 15:30 | NUR ---
MS RN NOTES PATIENT SEEN AND EVALUATED BY DESTINY YOST SHOWN OPEN WOUND AND BLISTERS ON INNER BUTTOCKS AND PERIANAL AREA. ORDERS NOTED AND CARRIED OUT.
[2018-03-30 16:00] VITALS: BP 104/52
[2018-03-30] MEDS ORDERED: DEXTROSE 50%-WATER 50 ML DISP.SYRIN IVP ONE (16:30)
[2018-03-30] MEDS ORDERED: FLUCONAZOLE (100 MG) 100 MG TABLET PO ONE (17:00)
[2018-03-30] MEDS ORDERED: BLOOD SUGAR DIAGNOSTIC 1 EACH STRIP IN SCH (18:00)
[2018-03-30] MEDS: ACYCLOVIR 5% CREAM 5 GM TUBE TP SCH ×2 (18:31→21:50)
[2018-03-30] MEDS: VALACYCLOVIR HCL 500 MG TABLET PO SCH (18:31)
--- NOTE | 2018-03-30 18:44 | NUR ---
MS RN NOTES PATIENT IN BED RESTING NO SOB OR ACUTE DISTRESS NOTED. PATIENT ALERT, ORIENTED X3 LAO SPEAKING. ALL DUE MEDICATIONS ADMINISTERED. ALL NEEDS MET. BED IN LOW LOCKED POSITION. CALL LIGHT WITHIN REACH. FAMILY AT BEDSIDE. WILL ENDORSE CARE TO PM SHIFT.
--- NOTE | 2018-03-30 19:30 | NUR ---
MS/CHARGE ENTRY OPENING NOTE Patient was seen lying in bed AAOx3, breathing on 2L O2 NC with no SOB, and no signs of acute distress. SL IVs are noted in the right and left hands. Bed is in the low/locked position, two side rails up, and call mas within reach. Patient has no immediate needs or concerns at this time. Will continue to monitor.
[2018-03-30 20:00] VITALS: BP 112/47
[2018-03-30] MEDS ORDERED: ACYCLOVIR 5% CREAM 5 GM TUBE TP SCH (21:00)
[2018-03-30] MEDS: GABAPENTIN 300 MG CAPSULE PO SCH (21:48)
--- NOTE | 2018-03-30 22:15 | NUR ---
MS/FUNERAL SERVICE PRACTITIONER/EMBALMER NOTE - Low BG Patient complained of dizziness, "not feeling well", and thought her blood sugar might be low. Upon checking, blood glucose was 44; patient also showed sinus tachycardia of 129. I immediately gave the patient 8oz of orange juice to drink because the order for Dextrose was discontinued (I was unaware at the time that the charge nurse could override this). Patient responded well to orange juice and blood sugar increased to 80. The patient also ate several marisa crackers. She reported that the dizziness went away and that she felt much better. Charge nurse was made aware and on-call ENAMEL SPRAYER, Graciela Gutierrez was notified. Additional orange juice and snacks were left at the patient's bedside. Will continue to monitor.
[2018-03-30] MEDS ORDERED: DEXTROSE 50%-WATER 50 ML DISP.SYRIN IVP PRN (23:30)
[2018-03-31] VITALS: BP 103/50
[2018-03-31] MEDS: BLOOD SUGAR DIAGNOSTIC 1 EACH STRIP IN SCH ×7 (00:22→22:20)
[2018-03-31] MEDS: DEXTROSE 50%-WATER 50 ML DISP.SYRIN IV PRN ×2 (03:52→16:19)
--- NOTE | 2018-03-31 03:55 | NUR ---
MS/MIXING HOUSE OPERATOR NOTE - Low BG Patient was found disoriented with blood sugar level of 27. 50ml of Dextrose 50% IV push was administered as ordered prn for BG <60. 15 minutes later blood sugar was check, and it increased to 155. Patient also ate crackers. Continued to monitor patient; she became fully oriented and reported feeling better. Patient was encouraged to continue PO intake and to use call mas when signs/sx of hypoglycemia occur. Patient is already on hypoglycemic protocols with AccuChecks q4h. Will continue to monitor.
[2018-03-31 04:00] VITALS: BP_SYST 1; BP_SYST 116; BP_DIAS 50; BP_DIAS 52
--- NOTE | 2018-03-31 04:02 | NUR ---
MS/PLAN EXAMINER NOTE - Scratch on chest Two scratches were found on the middle of the patient's chest; no bleeding. Site was cleansed and patted dry; left open to air. Patient said she tried to remove an EKG electrode when it occurred. Patient is noted to have very long finger nails; this is believed to be accidental self-infliction. Picture was taken and placed in chart for documentation.
[2018-03-31 06:25] LABS: BASOPHILS % (AUTO) 0.2 % (0.0-2.0); EOSINOPHILS % (AUTO) 2.8 % (0.0-6.0); HEMATOCRIT 22 % (33-45); HEMOGLOBIN 7.3 g/dL (11.5-14.8); LYMPHOCYTES # (AUTO) 0.4 /CMM (0.8-4.8); LYMPHOCYTES % (AUTO) 5.1 % (20.0-44.0); MEAN CORPUSCULAR HEMOGLOBIN 31 PG (26.0-33.0); MEAN CORPUSCULAR HGB CONC 33 g/dl (31.0-36.0); MEAN CORPUSCULAR VOLUME 95 fL (82-100); MONOCYTES # (AUTO) 0.3 /CMM (0.1-1.30); MONOCYTES % (AUTO) 3.5 % (2.0-12.0); NEUTROPHILS # (AUTO) 7.7 /CMM (1.8-8.9); NEUTROPHILS % (AUTO) 88.4 % (43.0-81.0); RDW COEFFICIENT OF VARIATION 17.1 (11.5-15.0); RED BLOOD CELL COUNT(AUTO) 2.32 MIL/uL (4.0-5.2); WHITE BLOOD COUNT (AUTO) 8.7 K/uL (4.3-11.0)
[2018-03-31] MEDS ORDERED: IV D5W 1,000 ML IV PRN (06:30)
[2018-03-31] MEDS: ACYCLOVIR 5% CREAM 5 GM TUBE TP SCH ×5 (06:46→21:15)
[2018-03-31 06:50] LABS: PLATELET COUNT (AUTO) 35 /CMM (150-450)
--- NOTE | 2018-03-31 06:55 | NUR ---
MS/HOURLY MANAGER NOTE - Critical result Critical result - Plt count 35. Notified vp transportation Graciela Gutierrez NP.
--- NOTE | 2018-03-31 06:56 | NUR ---
MS/QUALITY LAB TECHNICIAN CLOSING NOTE Patient was seen lying in bed AAOx3, breathing on 2L O2 NC with no SOB, and no signs of acute distress. Telemonitor shows NSR at 100 bpm. Patient had episodes of hypoglycemia overnight (see previous notes), but is currently in stable condition with normal vital signs. Additional orange juice and crackers remain at the bedside. Per Graciela Gutierrez (RITIKA) D5 at 75ml/hr was added this morning, running throught right hand IV. SL IV in the left hands. HD cath is noted in the right upper thigh; site is clean, dry, and intact. Goyal cath is draining piedad colored urine. Bed is in the low/locked position, two side rails up, and call mas within reach. Patient care has been endorsed to day shift RN.
[2018-03-31 06:59] LABS: ALANINE AMINOTRANSFERASE 18 U/L (12-78); ALBUMIN 2.3 g/dL (3.4-5.0); ALKALINE PHOSPHATASE 39 U/L (46-116); ASPARTATE AMINOTRANSFERASE 19 U/L (15-37); BILIRUBIN,TOTAL 0.8 mg/dL (0.2-1.0); CALCIUM, SERUM 7.7 mg/dL (8.5-10.1); CARBON DIOXIDE 30 mmol/L (21-32); CHLORIDE 100 mmol/L (98-107); CREATININE 4.8 mg/dL (0.6-1.3); GLUCOSE 83 mg/dL (74-106); MAGNESIUM 2.1 mg/dL (1.8-2.4); PHOSPHORUS 3.7 mg/dL (2.5-4.9); POTASSIUM 3.9 mmol/L (3.5-5.1); SODIUM SERUM 135 mmol/L (136-145); TOTAL PROTEIN, SERUM 5.6 g/dL (6.4-8.2); UREA NITROGEN, BLOOD 31 mg/dL (7-18)
[2018-03-31 07:01] LABS: APPEARANCE,URINE CLOUDY (CLEAR); BILIRUBIN,URINE 1+ (NEGATIVE); BLOOD, URINE 3+ Ery/uL (NEGATIVE); COLOR,URINE AMBER (YELLOW); KETONES,URINE TRACE (NEGATIVE); LEUKOCYTE ESTERASE ,URINE 1+ (NEGATIVE); NITRITE, URINE NEGATIVE (NEGATIVE); PROTEIN,URINE 2+ mg/dl (NEGATIVE); UGLUCOSE NEGATIVE (NEGATIVE); UROBILINOGEN,URINE 0.2 EU/dL (0.2)
[2018-03-31 07:01] LABS: CHOLESTEROL 89 mg/dL (<200); HDL CHOLESTEROL 33 mg/dL (40-60); LDL 50 mg/dL (0-99); THYROID STIMULATING HORMONE 0.224 uIU/mL (0.358-3.74); TRIGLYCERIDES 68 mg/dL (30-150)
--- NOTE | 2018-03-31 07:02 | NUR ---
MS/FLIGHT DISPATCHER NOTE - F/U critical lab value Per Graciela Gutierrez, hold any aspirin products and/or anticoagulants. Monitor patient and pass on to day shift.
[2018-03-31 07:21] LABS: BACTERIA,URINE Moderate /HPF (None Seen); RBC,URINE TOO NUMEROUS TO COUN /HPF (0-2)
[2018-03-31 07:22] LABS: SQUAMOUS EPITHELIAL CELL,UR Few /HPF (None Seen); URINE AMORPHOUS URATE Few /HPF (None Seen)
--- NOTE | 2018-03-31 07:30 | NUR ---
BRAND MARKETING SPECIALIST OPENING NOTES RECEIVED PATIENT IN BED ASLEEP, IN STABLE CONDITION. BREATHING EVEN AND UNLABORED. ON 2L O2 VIA NC. NO SOB NOTED. NO SIGNS OF DISTRESS. NO SIGNS OF PAIN OR DISCOMFORT. NO FACIAL GRIMACING. SKIN WARM AND DRY TO TOUCH. IV ON LEFT HAND #22 AND RIGHT HAND #20 INTACT AND PATENT. CURRENT INFUSING D5 @ 75ML/HR. CONTACT ISOLATION OBSERVED. CALL LIGHT WITHIN REACH. BED ON LOWEST LOCKED POSITION. WILL CONTINUE TO MONITOR.
[2018-03-31 08:00] VITALS: BP 115/54
[2018-03-31 09:06] LABS: IRON, SERUM 48 ug/dl (50-175); TOTAL IRON BINDING CAPACITY 190 ug/dl (250-450)
[2018-03-31 09:08] LABS: EOSINOPHILS % (MANUAL) 1 % (0-4); LYMPHOCYTES % (MANUAL) 7 % (16-48); MONOCYTES % (MANUAL) 3 % (0-11.0); NEUTROPHILS % (MANUAL) 89 (42-76)
[2018-03-31] MEDS: CALCIUM ACETATE 667 MG TABLET PO SCH ×3 (09:27→17:32)
--- NOTE | 2018-03-31 10:54 | NUR ---
RN MS NOTES PATIENT SEEN BY DR. RESENDEZ WITH ORDERS TO D/C IV HYDRATION. NOTED AND CARRIED OUT.
[2018-03-31 16:00] VITALS: BP 96/46
--- NOTE | 2018-03-31 16:31 | NUR ---
RN MS NOTES PT WITH EPISODE OF HYPOGLYCEMIA, BS 37, PT IS AWAKE, ALERT, VERBALLY RESPONSIVE, NOT IN DISTRESS, D50/50 GIVEN ORDERED, MEGHANN YOST FOR DR. RESENDEZ INFORMED, ORDERED TO MONITOR BS FOR THE NEXT 2 HOURS AND TO CALL HIM BACK IF BS STILL DROPS.
[2018-03-31] MEDS: VALACYCLOVIR HCL 500 MG TABLET PO SCH (17:32)
--- NOTE | 2018-03-31 18:35 | NUR ---
RN MS CLOSING NOTES PATIENT IN BED AWAKE AND ALERT, IN STABLE CONDITION. BREATHING EVEN AND UNLABORED. ON 2L O2 VIA NC. NO SOB NOTED. NO SIGNS OF DISTRESS. NO SIGNS OF PAIN OR DISCOMFORT. NO FACIAL GRIMACING. SKIN WARM AND DRY TO TOUCH. IV ON LEFT HAND #22 AND RIGHT HAND #20 INTACT AND PATENT. LAST BS WAS 159 AT 1825. ONLY ATE ABOUT 10% OF DINNER. INSTRUCTED PATIENT TO TRY AND CONSUME MORE APPLE JUICE/SAUCE OR JELLO TO PREVENT HER BS FROM DROPPING. FAMILY AT BEDSIDE AND INSTRUCTED THEM TO TRY AND OFFER PATIENT. REMAINS ON CONTACT ISOLATION. CALL LIGHT WITHIN REACH. BED ON LOWEST LOCKED POSITION. WILL ENDORSE TO ON COMING RN FOR CONTINUITY OF CARE AND TO CONSISTENTLY ASSESS PATIENT FOR ANY S/SX OF HYPOGLYCEMIA.
--- NOTE | 2018-03-31 19:00 | NUR ---
RN MS NOTES RECEIVED ORDERS FROM RITIKA BROWN FOR ACCUCHECK Q2H AND IV D5NS @ 50ML/HR IF BS IS <90, NOTED AND CARRIED OUT. INFORMED FAMILY OF NEW ORDERS. PATIENT IS CURRENTLY STABLE. ALERT AND ORIENTED X3-4. VERBALLY RESPONSIVE. NOT ON ANY DISTRESS. WILL CONTINUE TO MONITOR.
--- NOTE | 2018-03-31 19:10 | NUR ---
MS/TOBACCO BUYER; RECEIVED PT'S REPORTS FROM THE DAY SHIFT RN FOR CONTINUITY OF CARE. AT THIS TIME PT IN BED AWAKE, ALERT AND VERBALLY RESPONSIVE. THAI SPEAKING. DENIES PAIN. NO S/S OF DISTRESS. BREATHING NON LABORED AND EVEN. WITH O2 2 L NC ON. HL ON RT HAND INTACT. NOTED LT ARM AND HAND SLIGHT SWOLLEN KEEP IT ELEVATED WITH PILLOW. HAS FC INTACT WITH DARK GREY URINE. PT WITH FAMILY MEMBERS AT THE BEDSIDE. ON CONTACT ISOLATION OBSERVED. BED ON LOWER POSITION AND LOCKED FOR [id number]. S8IDE RAILS X 2 ARE UP FOR SAFETY. CONTINUE TO MONITOR. CALL LIGHT WITHIN REACH.
[2018-03-31] MEDS ORDERED: IV D5/ 0.9% NACL 1,000 ML IV PRN (19:30)
[2018-03-31 20:00] VITALS: BP 98/42
--- NOTE | 2018-03-31 20:15 | NUR ---
MS/FURNITURE REFINISHER; BS 183 NO SLIDING SCALE COVERAGE. PT IS AWAKE, ALERT AND ORIENTED MONEGASQUE SPEAKING. WILL CONTINUE TO MONITOR.
--- NOTE | 2018-03-31 22:15 | NUR ---
MS/DRAFTER CARTOGRAPHIC; BS 186 NO SLIDING SCALE ORDER. WILL CONTINUE TO MONITOR.
[2018-03-31] MEDS: GABAPENTIN 300 MG CAPSULE PO SCH (22:30)
--- NOTE | 2018-03-31 23:50 | NUR ---
MS?SUPERVISOR PORCELAIN DEPARTMENT; PT TURNED AND REPOSITIONED TO HER LT SIDE WITH PILLOWS SUPPORT TO HER BACK, IN BETWEEN LEGS, AQND LT ARM . BOTH HEELS OFFLOADED.
--- NOTE | 2018-04-01 00:15 | NUR ---
MS/BRAIDER OPERATOR; PT AWAKEN FOR BS CHECK BS 138 AND PT SAW THE RESULT. NO SLIDING SCALE. PT ATE 2 SPOONS OF APPLE SAUCE AND DRUNK SOME APPLE JUICE. BREATHING NON LABORED. WILL CONTINUE TO MONITOR.
[2018-04-01] MEDS: BLOOD SUGAR DIAGNOSTIC 1 EACH STRIP IN SCH ×11 (00:18→21:07)
--- NOTE | 2018-04-01 02:20 | NUR ---
MS/UNDERLAY STITCHER; PT IS SLEEPING. BREATHING NON LABORED. WITH O2 2L NC ON. AWAKEN FOR BS CHECK BS 101. CHARGE NURSE INFORMED. APPLE JUICE GIVENTOOK IT. APPLE SAUCE, JELLO AND ABDIFATAH CRACKERS. WILL CONTINUE TO MONITOR.
--- NOTE | 2018-04-01 04:15 | NUR ---
MS/GAS ENGINE MECHANIC; PT SLEEPING AT THIS TIME. AWAKEN FOR BS CHECK. BS 151 NO SLIDING SCALE. PT ASKED FOR ABDIFATAH CRACKERS GIVEN. ENC. TO GO BACK TO SLEEP.
--- NOTE | 2018-04-01 06:20 | NUR ---
MS/TRANSFER AND LINE UP WORKER; BS 158 NO SLIDING SCALE.
[2018-04-01 06:36] LABS: BASOPHILS % (AUTO) 0.4 % (0.0-2.0); EOSINOPHILS % (AUTO) 4.8 % (0.0-6.0); HEMATOCRIT 21 % (33-45); LYMPHOCYTES # (AUTO) 0.6 /CMM (0.8-4.8); LYMPHOCYTES % (AUTO) 9.5 % (20.0-44.0); MEAN CORPUSCULAR HEMOGLOBIN 32 PG (26.0-33.0); MEAN CORPUSCULAR HGB CONC 34 g/dl (31.0-36.0); MEAN CORPUSCULAR VOLUME 95 fL (82-100); MONOCYTES # (AUTO) 0.3 /CMM (0.1-1.30); MONOCYTES % (AUTO) 4.7 % (2.0-12.0); NEUTROPHILS # (AUTO) 4.9 /CMM (1.8-8.9); NEUTROPHILS % (AUTO) 80.6 % (43.0-81.0); RDW COEFFICIENT OF VARIATION 17.6 (11.5-15.0); RED BLOOD CELL COUNT(AUTO) 2.17 MIL/uL (4.0-5.2); WHITE BLOOD COUNT (AUTO) 6.1 K/uL (4.3-11.0)
--- NOTE | 2018-04-01 06:45 | NUR ---
MS/SWISS TYPE SCREW MACHINE OPERATOR; MCKENZIE, FROM THE LAB. CALLED PT'S LABS. RESULTS; HGB 6.9, HCT 21, PLATELET 39. I INFORMED TAM , CHARGE NURSE AND SAID TO CALL MD FOR RESULTS.
--- NOTE | 2018-04-01 06:50 | NUR ---
MS/RESEARCH LABORATORY MANAGER; I PLACED A CALL TO EDER PRESLEY AND I TOLD THE TEACHERS' AIDE TRACY I WANT TO TALK TO HER TO RELAY THE CRITICAL LABS. RESULTS. HE SAID HE WILL RELAY TO HER BUT SHE MIGHT NOT ANSWER DUE TO CHANGE OF TIME. SO I INFORMED TAM , CHARGE NURSE OF WHAT THE TEACHERS' AIDE SAID. AWAITING.
[2018-04-01 06:51] LABS: HEMOGLOBIN 6.9 g/dL (11.5-14.8); PLATELET COUNT (AUTO) 39 /CMM (150-450)
--- NOTE | 2018-04-01 07:00 | NUR ---
MS/LUMBER MOVER; PT SLEPT ON AND OFF DUE PT ON BS CHECK Q2 HOURS. AM CARE DONE BY THE ACCOUNTANT SYSTEMS. I TOLD THE AM RN'S TO DC THE HL ON LT HAND. FC INTACT 300 ML DARK GREY. BREATHING NON LABORED. WILL CONTINUE TO MONITOR. WILL ENDORSE TO THE DAY SHIFT RN FOR CONTINUITY OF CARE.
[2018-04-01 07:08] LABS: CALCIUM, SERUM 8.4 mg/dL (8.5-10.1); CARBON DIOXIDE 31 mmol/L (21-32); CHLORIDE 96 mmol/L (98-107); CREATININE 5.9 mg/dL (0.6-1.3); GLUCOSE 159 mg/dL (74-106); MAGNESIUM 2.3 mg/dL (1.8-2.4); PHOSPHORUS 4.1 mg/dL (2.5-4.9); POTASSIUM 4.5 mmol/L (3.5-5.1); SODIUM SERUM 133 mmol/L (136-145); UREA NITROGEN, BLOOD 42 mg/dL (7-18)
--- NOTE | 2018-04-01 07:30 | NUR ---
RN MS OPENING NOTES RECEIVED PATIENT IN BED AWAKE. ALERT AND ORIENTED X4. GEORGIAN SPEAKING ONLY. IN STABLE CONDITION. BREATHING EVEN AND UNLABORED. ON 2L O2 VIA NC. NO SOB NOTED. NO SIGNS OF DISTRESS. NO COMPLAINTS OF PAIN OR DISCOMFORT. NO FACIAL GRIMACING. SKIN WARM AND DRY TO TOUCH. IV ON LEFT HAND #22 AND RIGHT HAND #20 INTACT AND PATENT. BS AT 0730 = 171. PER MARKETING BUDGET ANALYST NURSE, RECEIVED RESULTS FOR H&H .06/30. PAGED , AWAITING RESPONSE. NO ACTIVE BLEEDING NOTED. REMAINS ON CONTACT ISOLATION. CALL LIGHT WITHIN REACH. BED ON LOWEST LOCKED POSITION. WILL CONTINUE TO MONITOR.
[2018-04-01] MEDS: ACYCLOVIR 5% CREAM 5 GM TUBE TP SCH ×5 (07:44→21:07)
[2018-04-01] MEDS: CALCIUM ACETATE 667 MG TABLET PO SCH ×3 (09:05→18:08)
--- NOTE | 2018-04-01 10:14 | NUR ---
RN MS NOTES DR. RESENDEZ MADE AWARE OF H&H 6.06/29 AND PLT = 39 NO ACTIVE BLEEDING, WITH ORDERS FOR 1 UNIT PRBC. NOTED AND CARRIED OUT. WILL OBTAIN CONSENT FROM FAMILY.
--- NOTE | 2018-04-01 10:22 | NUR ---
RN MS NOTES SON, MIC GONZALEZ, MADE AWARE OF MD'S ORDERS FOR BLOOD TRANSFUSION. AGREED AND SIGNED CONSENT FORM.
[2018-04-01 10:45] LABS: EOSINOPHILS % (MANUAL) 2 % (0-4); LYMPHOCYTES % (MANUAL) 6 % (16-48); MONOCYTES % (MANUAL) 4 % (0-11.0); NEUTROPHILS % (MANUAL) 88 (42-76)
[2018-04-01 10:50] VITALS: BP 85/45
[2018-04-01 13:05] VITALS: BP 109/44
[2018-04-01 13:20] VITALS: BP 103/49
[2018-04-01 13:40] VITALS: BP 116/53
--- NOTE | 2018-04-01 13:41 | NUR ---
RN MS NOTES PT RECEIVED 1 UNIT OF PRBC WITH DIALYSIS, TOLERATED WELL, VITALS SIGNS STABLE.
[2018-04-01 16:00] VITALS: BP 117/58
[2018-04-01] MEDS: VALACYCLOVIR HCL 500 MG TABLET PO SCH (18:08)
--- NOTE | 2018-04-01 18:40 | NUR ---
RN MS CLOSING NOTES PATIENT IN BED AWAKE AND ALERT, IN STABLE CONDITION. BREATHING EVEN AND UNLABORED. ON 2L O2 VIA NC. NO SOB NOTED. NO SIGNS OF DISTRESS. NO SIGNS OF PAIN OR DISCOMFORT. NO FACIAL GRIMACING. SKIN WARM AND DRY TO TOUCH. RIGHT HAND #20 INTACT AND PATENT. LAST BS WAS 306 @ 1808. PATIENT EATING >50% OF HER MEALS THIS SHIFT. PATIENT HAD BLOOD TRANSFUSION D/T LOW H&H - 1 UNIT OF PRBC - TOELRATED WELL. NO ADVERSE REACTIONS. HAD DIALYSIS TODAY. DIALYSIS NURSE TOOK OUT 1L OF FLUIDS. FAMILY AT BEDSIDE. REMAINS ON CONTACT ISOLATION. CALL LIGHT WITHIN REACH. BED ON LOWEST LOCKED POSITION. WILL ENDORSE TO ON COMING RN FOR CONTINUITY OF CARE.
--- NOTE | 2018-04-01 19:25 | NUR ---
RN OPENING NOTES RECEIVED PT IN BED, ALERT AND ORIENTED X 3, VERBALLY RESPONSIVE, NO SOB NOTED, BREATHING EVEN AND UNLABORED, DENIES PAIN, IN NO ACUTE DISTRESS. PT WITH IVP LINE ON RHAND G20, INTACT AND PATENT. ALL PATIENT'S NEEDS ATTENDED TO, PLACED CALL LIGHT WITHIN EASY REACH. BED IN LOW POSITION AND LOCKED IN PLACE. PATIENT'S FAMILY AT BEDSIDE. WILL CONTINUE TO MONITOR.
[2018-04-01 20:00] VITALS: BP 107/51
[2018-04-01] MEDS: GABAPENTIN 300 MG CAPSULE PO SCH (21:07)
[2018-04-01] MEDS ORDERED: CEFTRIAXONE 1 G VIAL ONE (23:40)
[2018-04-01] MEDS: CEFTRIAXONE 1 G in IV NS 0.9% 50 ML IV SCH (23:45)
[2018-04-02] MEDS: BLOOD SUGAR DIAGNOSTIC 1 EACH STRIP IN SCH ×6 (00:59→22:30)
[2018-04-02 06:09] LABS: BASOPHILS % (AUTO) 0.6 % (0.0-2.0); EOSINOPHILS % (AUTO) 5.3 % (0.0-6.0); HEMATOCRIT 22 % (33-45); HEMOGLOBIN 7.5 g/dL (11.5-14.8); LYMPHOCYTES # (AUTO) 0.5 /CMM (0.8-4.8); LYMPHOCYTES % (AUTO) 9.5 % (20.0-44.0); MEAN CORPUSCULAR HEMOGLOBIN 31 PG (26.0-33.0); MEAN CORPUSCULAR HGB CONC 34 g/dl (31.0-36.0); MEAN CORPUSCULAR VOLUME 94 fL (82-100); MONOCYTES # (AUTO) 0.3 /CMM (0.1-1.30); MONOCYTES % (AUTO) 5.2 % (2.0-12.0); NEUTROPHILS # (AUTO) 3.9 /CMM (1.8-8.9); NEUTROPHILS % (AUTO) 79.4 % (43.0-81.0); RDW COEFFICIENT OF VARIATION 16.8 (11.5-15.0); RED BLOOD CELL COUNT(AUTO) 2.38 MIL/uL (4.0-5.2); WHITE BLOOD COUNT (AUTO) 4.9 K/uL (4.3-11.0)
[2018-04-02] MEDS: ACYCLOVIR 5% CREAM 5 GM TUBE TP SCH ×5 (06:09→22:31)
[2018-04-02 06:37] LABS: PLATELET COUNT (AUTO) 39 /CMM (150-450)
[2018-04-02 06:38] LABS: CALCIUM, SERUM 8.2 mg/dL (8.5-10.1); CARBON DIOXIDE 31 mmol/L (21-32); CHLORIDE 100 mmol/L (98-107); CREATININE 5.5 mg/dL (0.6-1.3); GLUCOSE 123 mg/dL (74-106); MAGNESIUM 2.2 mg/dL (1.8-2.4); PHOSPHORUS 3.8 mg/dL (2.5-4.9); POTASSIUM 4.5 mmol/L (3.5-5.1); SODIUM SERUM 135 mmol/L (136-145); UREA NITROGEN, BLOOD 41 mg/dL (7-18)
--- NOTE | 2018-04-02 06:38 | NUR ---
RN CLOSING NOTE RECEIVED CALL FROM LAB FOR CRITICAL LEVEL OF PLATELET @ 39. RELAYED TO SENIOR ADMINISTRATIVE ASSOCIATE, CRM SOLUTION ARCHITECT FERNANDEZ, WITH NO NEW ORDERS AT THIS TIME LEVEL IS THE SAME PREVIOUS DAY. PT IN BED ASLEEP BUT EASILY AROUSABLE. IN NO ACUTE DISTRESS, NO SOB, BREATHING EVEN AND UNLABORED. CALL LIGHT PLACED WITHIN EASY REACH AND LOCKED IN PLACE. WILL ENDORSE TO AM SHIFT NURSE FOR CONTINUITY OF CARE.
--- NOTE | 2018-04-02 07:30 | NUR ---
MS RN OPENING NOTES RECEIVED PT LAYING IN BED SLEEPING COMFORTABLY WITH HOB SLIGHTLY ELEVATED. EASILY TO AROUSE, RESPONSIVE. RESPIRATIONS ARE EVEN AND UNLABORED, NOT IN ANY ACUTE DISTRESS NOTED. PT DENIES ANY PAIN AT THIS TIME, NO C/O SOB, N/V. IV SITE INTACT, NO INFILTRATION NOTED. DRESSING KEPT CLEAN AND DRY. BILATERAL HAND PATIENT CARE COORDINATOR ARE STRONG AND EQUAL. DENT CATH INTACT, TUBING FREE OF KINKS, YELLOW URINE DRAINING FREELY. HD CATH NOTED TO GROIN. NO S/SX OF INFECTION NOTED. SAFETY MEASURES ARE IN PLACE. INSTRUCTED PT TO USE MARIAA LIGHT WHEN ASSISTANCE IS NEEDED, CALL LIGHT IS LEFT WITHIN REACH AND ABLE TO PERFORM RETURN DEMONSTRATION. WILL CONTINUE TO MONITOR THROUGHOUT SHIFT FOR CONTINUITY OF CARE.
[2018-04-02 08:00] VITALS: BP 95/44
[2018-04-02 08:14] LABS: BAND % (MANUAL) 3 % (0.0-5.0); EOSINOPHILS % (MANUAL) 5 % (0-4); LYMPHOCYTES % (MANUAL) 9 % (16-48); MONOCYTES % (MANUAL) 5 % (0-11.0); NEUTROPHILS % (MANUAL) 78 (42-76)
[2018-04-02] MEDS: CALCIUM ACETATE 667 MG TABLET PO SCH ×3 (08:57→18:24)
--- NOTE | 2018-04-02 09:35 | NUR ---
WOUND CARE CONSULT: PT FOLLOWED BY PLASTIC SURGERY TEAM FOR SKIN ISSUES. DEFER TO PLASTIC SURGERY TEAM AT THIS TIME FOR WOUND TREATMENT PLAN. ALL SKIN PROTECTION AND PRESSURE ULCER PREVENTION MEASURES IN PLACE AND DISCUSSED WITH NURSING STAFF. PT ON [place] ISOFLEX LOW AIRLOSS BED. CURRENT DIMA SCORE IS 13.
[2018-04-02] MEDS ORDERED: GABA300C PO (09:50)
[2018-04-02] MEDS ORDERED: VALA500T PO (09:50)
[2018-04-02] MEDS ORDERED: ACYC5CRE2 TP (09:50)
--- NOTE | 2018-04-02 14:00 | NUR ---
MS RN NOTES PT RECEIVED HD WITH 2L OUT. DIALYSIS NURSE REMOVED DIALYSIS SITE ON GROIN PER DR. VAZQUEZ. PT TOLERATED WELL. WILL CONTINUE TO MONITOR.
[2018-04-02 16:00] VITALS: BP 101/44
[2018-04-02] MEDS: VALACYCLOVIR HCL 500 MG TABLET PO SCH (18:24)
--- NOTE | 2018-04-02 18:34 | NUR ---
MS RN NOTES RECEIVED A CALL FROM DR. OLIVAS. PER DR. OLIVAS, PT WILL HAVE PERMA CATHETER INSERTION IN AM. NPO POST MIDNIGHT.
--- NOTE | 2018-04-02 19:20 | NUR ---
RN OPENING NOTES RECEIVED PT IN BED, ALERT AND ORIENTED X 3, NO SOB, IN NO ACUTE DISTRESS AND WITH NO C/O PAIN. PT IS IN STABLE CONDITION. ALL PATIENT;S NEEDS ATTENDED TO. PLACED BED IN LOW POSITION AND CALL LIGHT WITHIN EASY REACH. WILL CONTINUE TO MONITOR.
[2018-04-02 20:00] VITALS: BP 100/52
[2018-04-02] MEDS: GABAPENTIN 300 MG CAPSULE PO SCH (22:37)
[2018-04-02] MEDS: CEFTRIAXONE 1 G in IV NS 0.9% 50 ML IV SCH (22:40)
[2018-04-03] MEDS: BLOOD SUGAR DIAGNOSTIC 1 EACH STRIP IN SCH ×6 (02:02→21:06)
[2018-04-03] MEDS: ACYCLOVIR 5% CREAM 5 GM TUBE TP SCH ×5 (06:06→21:13)
[2018-04-03] MEDS ORDERED: ANESTHESIA TRAY IN PYXIS 1 EA TRAY MC ONE (06:16)
[2018-04-03] MEDS ORDERED: HEPARIN SODIUM, PORCINE 1,000 UNIT/ML VIAL ONE (06:16)
[2018-04-03] MEDS ORDERED: LIDOCAINE HCL/MPF 1% 30 ML VIAL IJ ONE (06:43)
--- NOTE | 2018-04-03 06:49 | NUR ---
RN CLOSING NOTES PATIENT FOR TRANSFER TO OR, ACCOMPANIED BY OR STAFF. PT WITH NO SOB, IN STABLE CONDITION AND IN NO ACUTE DISTRESS. EXITED UNIT VIA HOSPITAL BED. ALL PATIENT'S NEEDS ATTENDED TO THROUGHOUT THE SHIFT, NO CHANGES IN CONDITION NOTED, IN NO DISTRESS. PT TURNED AND REPOSITIONED [id number]. DENT CATHETER NOTED WITH YELLOW URINE OUTPUT OF 250 CC. WILL ENDORSE TO AM SHIFT NURSE FOR CONTINUITY OF CARE.
[2018-04-03 07:25] LABS: BASOPHILS % (AUTO) 0.5 % (0.0-2.0); EOSINOPHILS % (AUTO) 4.6 % (0.0-6.0); HEMATOCRIT 23 % (33-45); HEMOGLOBIN 7.8 g/dL (11.5-14.8); LYMPHOCYTES # (AUTO) 0.7 /CMM (0.8-4.8); LYMPHOCYTES % (AUTO) 14.5 % (20.0-44.0); MEAN CORPUSCULAR HEMOGLOBIN 32 PG (26.0-33.0); MEAN CORPUSCULAR HGB CONC 33 g/dl (31.0-36.0); MEAN CORPUSCULAR VOLUME 95 fL (82-100); MONOCYTES # (AUTO) 0.4 /CMM (0.1-1.30); NEUTROPHILS # (AUTO) 3.7 /CMM (1.8-8.9); NEUTROPHILS % (AUTO) 72.4 % (43.0-81.0); RDW COEFFICIENT OF VARIATION 16.8 (11.5-15.0); RED BLOOD CELL COUNT(AUTO) 2.45 MIL/uL (4.0-5.2); WHITE BLOOD COUNT (AUTO) 5.1 K/uL (4.3-11.0)
[2018-04-03 07:28] LABS: PLATELET COUNT (AUTO) 43 /CMM (150-450)
--- NOTE | 2018-04-03 07:29 | NUR ---
MS RN OPENING NOTES PT CAME BACK FROM OR AT 0710 D/T DR. OLIVAS CANCELLING PERMA CATH PROCEDURE. RECEIVED A CALL FROM NINFA IN OR THAT PT WILL RESUME DIET ORDER AND WILL BE NPO POST MIDNIGHT, PROCEDURE WILL BE DONE TOMORROW 04/[address] OLIVAS. ORDERS NOTED AND CARRIED OUT. PT IS AWAKE AND RESPONSIVE, AFEBRILE. RESPIRATIONS ARE EVEN AND UNLABORED. DIALYSIS SITE THAT WAS REMOVED YESTERDAY IS KEPT CLEAN AND DRY. NO S/SX OF INFECTION. IV SITE IS INTACT, NO INFILTRATION NOTED. DRESSING KEPT CLEAN AND DRY. SAFETY MEASURES ARE IN PLACE. CALL LIGHT IS LEFT WITHIN REACH. WILL MONITOR PT THROUGHOUT SHIFT FOR CONTINUITY OF CARE.
[2018-04-03 07:33] LABS: CARBON DIOXIDE 28 mmol/L (21-32); CHLORIDE 101 mmol/L (98-107); CREATININE 5.3 mg/dL (0.6-1.3); GLUCOSE 90 mg/dL (74-106); MAGNESIUM 2.1 mg/dL (1.8-2.4); PHOSPHORUS 4.3 mg/dL (2.5-4.9); POTASSIUM 5.3 mmol/L (3.5-5.1); SODIUM SERUM 135 mmol/L (136-145); UREA NITROGEN, BLOOD 40 mg/dL (7-18)
[2018-04-03 07:34] LABS: INR 0.97 (0.87-1.13)
[2018-04-03 08:00] VITALS: BP 108/50
[2018-04-03] MEDS: CALCIUM ACETATE 667 MG TABLET PO SCH ×3 (08:59→17:15)
[2018-04-03 10:49] LABS: EOSINOPHILS % (MANUAL) 1 % (0-4); LYMPHOCYTES % (MANUAL) 19 % (16-48); MONOCYTES % (MANUAL) 5 % (0-11.0); NEUTROPHILS % (MANUAL) 75 (42-76)
[2018-04-03 16:00] VITALS: BP 120/57
[2018-04-03] MEDS: VALACYCLOVIR HCL 500 MG TABLET PO SCH (17:40)
--- NOTE | 2018-04-03 18:31 | NUR ---
MS RN CLOSING NOTES ALL DUE MEDS GIVEN, NEEDS MET AND RENDERED. PT REMAINS A/O X3, RESPIRATIONS ARE EVEN AND UNLABORED, NOT IN ANY ACUTE DISTRESS NOTED. PT DENIES ANY PAIN AT THIS TIME, NO SOB, N/V. IV ACCESS IS STILL INTACT, NO INFILTRATION NOTED. DRESSING KEPT CLEAN AND DRY. PT REPOSITIONED PER PROTOCOL. WOUND CARE DONE PER ORDERS. SAFETY MEASURES ARE IN PLACE. CALL LIGHT IS LEFT WITHIN REACH. WILL ENDORSE TO NEXT SHIFT FOR CONTINUITY OF CARE.
--- NOTE | 2018-04-03 19:40 | NUR ---
MS RN NOTES Patient received resting in bed, comfortable and easily arousable. Mongolian speaking only. Family at bedside. On contact isolation for shingles/herpes. No complaints of pain at this moment. Not in any type of distress. Safety measures in place. Bed in lowest position with bed alarm on and call light within reach. Will continue to monitor and assess patient.
[2018-04-03 20:03] VITALS: BP 108/50
[2018-04-03] MEDS: GABAPENTIN 300 MG CAPSULE PO SCH (21:25)
[2018-04-03] MEDS: CEFTRIAXONE 1 G in IV NS 0.9% 50 ML IV SCH (23:11)
[2018-04-04] MEDS: BLOOD SUGAR DIAGNOSTIC 1 EACH STRIP IN SCH ×4 (01:33→21:09)
--- NOTE | 2018-04-04 02:20 | NUR ---
MS RN NOTES Patient resting in bed, comfortable and easily arousable. Continue on NPO for procedure to be done at estimated time of 0645am (perma cath insertion). Not in any type of distress. Safety measures in place. Bed in lowest position with bed alarm and call light within reach. Will continue to monitor patient
--- NOTE | 2018-04-04 05:51 | NUR ---
MS RN NOTES Patient remains in bed, resting comfortably and easily arousable. NPO after midnight for perma cath insertion estimate time 0645. BS at 0500 = 123. No signs & symptoms of hyper/hypoglycemia. Continue on glucose monitoring Q4H. Remains on contact isolation for shingles. No complaints of pain. On oxygen therapy @2lpm via nasal cannula with no SOB noted. Not in any type of distress. Safety measures in place. Bed in lowest position with bed alarm and call light within reach. Will endorse to oncoming shift nurse
[2018-04-04] MEDS: ACYCLOVIR 5% CREAM 5 GM TUBE TP SCH ×5 (06:33→21:06)
[2018-04-04 06:36] LABS: CALCIUM, SERUM 8.5 mg/dL (8.5-10.1); CARBON DIOXIDE 27 mmol/L (21-32); CHLORIDE 103 mmol/L (98-107); CREATININE 5.5 mg/dL (0.6-1.3); GLUCOSE 105 mg/dL (74-106); MAGNESIUM 2.3 mg/dL (1.8-2.4); PHOSPHORUS 4.3 mg/dL (2.5-4.9); POTASSIUM 5.2 mmol/L (3.5-5.1); SODIUM SERUM 136 mmol/L (136-145); UREA NITROGEN, BLOOD 47 mg/dL (7-18)
[2018-04-04] MEDS ORDERED: SUCCINYLCHOLINE CHLORIDE 20 MG/ML VIAL ONE (06:41)
[2018-04-04] MEDS ORDERED: FENTANYL PF 100MCG/2ML AMPUL ONE ×2 (06:41→07:04)
[2018-04-04] MEDS ORDERED: MIDAZOLAM HCL 2 MG/2ML VIAL ONE ×2 (06:41→07:04)
--- NOTE | 2018-04-04 06:42 | NUR ---
MS RN NOTES Patient picked up by OR staff for perma cath insertion procedure. NPO by midnight. Left in stable condition with family member. HD after insertion.
[2018-04-04] MEDS ORDERED: HEPARIN SODIUM, PORCINE 1,000 UNIT/ML VIAL ONE (06:48)
[2018-04-04] MEDS ORDERED: LIDOCAINE 1%-EPI 1:100,000 20 ML VIAL ONE (06:50)
[2018-04-04] MEDS ORDERED: LIDOCAINE HCL/PF 1% 30 ML SDV ONE (06:52)
[2018-04-04 08:00] VITALS: BP 92/60
[2018-04-04] MEDS: CALCIUM ACETATE 667 MG TABLET PO SCH ×3 (08:25→17:02)
[2018-04-04] MEDS: FLUCONAZOLE (100 MG) 100 MG TABLET PO SCH (08:25)
--- NOTE | 2018-04-04 08:30 | NUR ---
M/S RN - AM Assessment Received patient from PACU s/p RIJ perma cath placement by Dr. Bowen. Patient awake, A/O x 4, afebrile, denies pain, no apparent distress seen, on 2 lpm via NC. Skin noted with multiple blisters/lesions on vaginal, buttocks, anal, abdomen, right hand. Patient currently on acyclovir cream and oral valtrex for possible herpes vs shingles. Wound treatment done as ordered. Contact isolation maintained. Goyal catheter in place for wound management. All needs attended and met. Will continue with current medical management.
[2018-04-04] MEDS ORDERED: EPOETIN ALFA (10,000 UNIT) 10,000 UNIT/ML VIAL SQ ONE (10:30)
[2018-04-04 11:09] LABS: BASOPHILS % (AUTO) 0.2 % (0.0-2.0); EOSINOPHILS % (AUTO) 2.3 % (0.0-6.0); HEMATOCRIT 22 % (33-45); HEMOGLOBIN 7.6 g/dL (11.5-14.8); LYMPHOCYTES # (AUTO) 0.3 /CMM (0.8-4.8); LYMPHOCYTES % (AUTO) 8.9 % (20.0-44.0); MEAN CORPUSCULAR HEMOGLOBIN 32 PG (26.0-33.0); MEAN CORPUSCULAR HGB CONC 34 g/dl (31.0-36.0); MEAN CORPUSCULAR VOLUME 95 fL (82-100); MONOCYTES # (AUTO) 0.1 /CMM (0.1-1.30); MONOCYTES % (AUTO) 1.3 % (2.0-12.0); NEUTROPHILS # (AUTO) 3.3 /CMM (1.8-8.9); NEUTROPHILS % (AUTO) 87.3 % (43.0-81.0); PLATELET COUNT (AUTO) 58 /CMM (150-450); RDW COEFFICIENT OF VARIATION 16.9 (11.5-15.0); RED BLOOD CELL COUNT(AUTO) 2.37 MIL/uL (4.0-5.2); WHITE BLOOD COUNT (AUTO) 3.8 K/uL (4.3-11.0)
[2018-04-04] MEDS ORDERED: BLOOD SUGAR DIAGNOSTIC 1 EACH STRIP IN SCH (12:00)
--- NOTE | 2018-04-04 12:30 | NUR ---
M/S RN - Accu-check Patient with blood glucose 354 mg/dL, no s/s of hyperglycemia seen, currently not on insulin sliding scale coverage, Hans Aguirre DNP notified.
[2018-04-04 12:35] LABS: EOSINOPHILS % (MANUAL) 2 % (0-4); LYMPHOCYTES % (MANUAL) 6 % (16-48); MONOCYTES % (MANUAL) 1 % (0-11.0); NEUTROPHILS % (MANUAL) 91 (42-76)
[2018-04-04] MEDS ORDERED: DEXTROSE 50%-WATER 50 ML DISP.SYRIN IV PRN (15:00)
[2018-04-04 16:00] VITALS: BP 112/53
[2018-04-04] MEDS: VALACYCLOVIR HCL 500 MG TABLET PO SCH (17:04)
[2018-04-04] MEDS: INSULIN REGULAR, HUMAN 100 UNIT/ML 3 ML VIAL SQ PRN ×2 (17:22→21:08)
--- NOTE | 2018-04-04 17:45 | NUR ---
M/S RN - End Notes Patient in no acute distress, denies pain, remain afebrile, blood glucose still elevated 389 mg/dL, started on mild RISS, HD treatment ongoing. All needs attended and met. Possible discharge tomorrow if she continues to be stable. Family at bedside made aware. Will continue with current medical management.
--- NOTE | 2018-04-04 19:30 | NUR ---
RN NOTES RECEIVED PATIENT IN BED AWAKE, AO X 3, ABLE TO MAKE NEEDS KNOWN. NO ACUTE DISTRESS NOTED. DENIES ANY PAIN AT THIS TIME. NO SYMPTOMS OF HYPER/HYPOGLYCEMIA. IV SITE PATENT, INTACT; FLUSHED. RIGHT IJ PERMACATH INTACT. DENT CATH PATENT, INTACT; DRAINING CLEAR YELLOW URINE. SAFETY REMINDERS GIVEN. ON LOW BED WITH BILATERAL UPPER SIDE RAILS UP. CALL DEL CID WITHIN EASY REACH. WILL CONTINUE TO MONITOR.
[2018-04-04 20:00] VITALS: BP_SYST 112; BP_SYST 99; BP_DIAS 53; BP_DIAS 59
[2018-04-04] MEDS: GABAPENTIN 300 MG CAPSULE PO SCH (21:03)
[2018-04-04] MEDS: CEFTRIAXONE 1 G in IV NS 0.9% 50 ML IV SCH (22:32)
[2018-04-05] MEDS: BLOOD SUGAR DIAGNOSTIC 1 EACH STRIP IN SCH ×3 (06:39→17:29)
[2018-04-05] MEDS: ACYCLOVIR 5% CREAM 5 GM TUBE TP SCH ×4 (06:40→17:38)
[2018-04-05] MEDS: INSULIN REGULAR, HUMAN 100 UNIT/ML 3 ML VIAL SQ PRN ×3 (06:42→17:33)
--- NOTE | 2018-04-05 06:48 | NUR ---
RN NOTES PATIENT AWAKE, RESPIRATIONS EVEN. DENIES ANY PAIN AT THIS TIME. DUE MEDS GIVEN WITH NO ASE NOTED. NEEDS ATTENDED. KEPT CLEAN, DRY, AND COMFORTABLE. CONTACT PRECAUTIONS MAINTAINED FOR HERPES VS SHINGLES. SAFETY PRECAUTIONS AND COMFORT MEASURES IN PLACE. WILL GIVE REPORT TO DAY SHIFT FOR CONTINUITY OF CARE.
--- NOTE | 2018-04-05 07:15 | NUR ---
RN OPENING NOTES RECEIVED PT. IN BED A&OX2-3. BREATHING UNLABORED, AND EVENLY ON OXYGEN AT 2L/MIN VIA NASAL CANNULA. NO S/S OF ACUTE DISTRESS. DENT CATHETER AT BEDSIDE. BED IS IN LOWEST, AND LOCKED POSITION. 2 SIDE RAILS UP, AND INSTRUCTED PT. TO USE CALL LIGHT FOR ASSISTANCE.
[2018-04-05 08:00] VITALS: BP 114/55
[2018-04-05] MEDS: CALCIUM ACETATE 667 MG TABLET PO SCH ×3 (08:45→17:31)
[2018-04-05] MEDS: FLUCONAZOLE (100 MG) 100 MG TABLET PO SCH (09:19)
[2018-04-05] MEDS: VALACYCLOVIR HCL 500 MG TABLET PO SCH (17:38)
--- NOTE | 2018-04-05 18:00 | NUR ---
DENT CATHETER WAS REMOVED WITH 50 CC OUTPUT OF YELLOW URINE. PT. TOLERATED PROCEDURE WELL.
--- NOTE | 2018-04-05 19:00 | NUR ---
VOID TRIAL PERFORMED. PT. VOIDED 15 CC S/P DENT CATHETER REMOVAL.
[2018-04-05 20:00] VITALS: BP 128/56
--- NOTE | 2018-04-05 21:02 | NUR ---
PT. WAS DISCHARGED IN MEDICALLY STABLE CONDITION. DISCHARGE INSTRUCTIONS WERE EXPLAINED WITH EDUCATION, AND PT. VERBALIZED UNDERSTANDING. PT. SIGNED DISCHARGE PACKET. BELONGING LIST WAS CHECKED AND SIGNED. IV, AND ID BAND WAS REMOVED WITHOUT COMPLICATIONS. PRESCRIPTION WAS GIVEN TO PATIENT. ALL QUESTIONS ANSWERED. PT. LEFT WITH FAMILY IN PRIVATE CAR BY WHEELCHAIR ASSISTED BY NURSE. WOUND PICTURES TAKEN BEFORE DISCHARGE.
== END 2018-04-05 21:00 | disposition home health service (06) | DRG 420 ==
LOC: ER 07:12 → TELE 09:55 → MED 03-31 09:16
PROVIDERS: ADMIT Nurse Practitioner Acute Care; ATTEND Nurse Practitioner Acute Care
PROC: 05HM33Z Insertion of Infusion Device into Right Internal Jugular Vein, Percutaneous Approach (ICD-10-PCS; principal; 2018-03-30)
PROC: B543ZZA Ultrasonography of Right Jugular Veins, Guidance (ICD-10-PCS; principal; 2018-03-30)
PROC: 5A1D70Z Performance of Urinary Filtration, Intermittent, Less than 6 Hours Per Day (ICD-10-PCS; principal; 2018-03-30)
PROC: 0JHD3XZ Insertion of Tunneled Vascular Access Device into Right Upper Arm Subcutaneous Tissue and Fascia, Percutaneous Approach (ICD-10-PCS; principal; 2018-03-30)
PROC: 30233N1 Transfusion of Nonautologous Red Blood Cells into Peripheral Vein, Percutaneous Approach (ICD-10-PCS; principal; 2018-03-30)
PROC: 5A1D70Z Performance of Urinary Filtration, Intermittent, Less than 6 Hours Per Day (ICD-10-PCS; 2018-04-02)
PROC: 5A1D70Z Performance of Urinary Filtration, Intermittent, Less than 6 Hours Per Day (ICD-10-PCS; 2018-04-04)
DX: E11.649 Type 2 diabetes mellitus with hypoglycemia without coma (principal); I13.2 Hypertensive heart and chronic kidney disease with heart failure and with stage 5 chronic kidney disease, or end stage renal disease; G93.41 Metabolic encephalopathy; N18.6 End stage renal disease; D69.6 Thrombocytopenia, unspecified; B02.9 Zoster without complications; E44.1 Mild protein-calorie malnutrition; E11.22 Type 2 diabetes mellitus with diabetic chronic kidney disease; F03.90 Unspecified dementia, unspecified severity, without behavioral disturbance, psychotic disturbance, mood disturbance, and anxiety; N39.0 Urinary tract infection, site not specified; E66.01 Morbid (severe) obesity due to excess calories; I77.6 Arteritis, unspecified; I50.9 Heart failure, unspecified; Z99.2 Dependence on renal dialysis; Z90.710 Acquired absence of both cervix and uterus; Z90.49 Acquired absence of other specified parts of digestive tract; Z87.891 Personal history of nicotine dependence; Z79.899 Other long term (current) drug therapy; Z98.890 Other specified postprocedural states; Z79.84 Long term (current) use of oral hypoglycemic drugs; Z68.38 Body mass index [BMI] 38.0-38.9, adult; Z79.4 Long term (current) use of insulin; S30.820A Blister (nonthermal) of lower back and pelvis, initial encounter; S30.826A Blister (nonthermal) of unspecified external genital organs, female, initial encounter; S30.827A Blister (nonthermal) of anus, initial encounter; X58.XXXA Exposure to other specified factors, initial encounter; Y92.009 Unspecified place in unspecified non-institutional (private) residence as the place of occurrence of the external cause; D63.8 Anemia in other chronic diseases classified elsewhere; N89.8 Other specified noninflammatory disorders of vagina; M85.9 Disorder of bone density and structure, unspecified; E83.51 Hypocalcemia; E87.1 Hypo-osmolality and hyponatremia; E87.6 Hypokalemia
CPT/HCPCS: 36415; 71045-TC; 80048-TC; 80053-TC; 80061-TC; 80076-TC; 81000-TC; 82962-TC; 83540-TC; 83605-TC; 83735-TC; 84100-TC; 84443-TC; 84484-TC; 85025-TC; 85610-TC; 85730-TC; 86850-TC; 86921-TC; 87040-TC; 87081-TC; 87086-TC; 90935-TC; 94799-TC; A4216; A4606; A6402; A6403; J0330; J0696; J0885; J1644; J1815; J2250; J3010; J3490; J7030; J7042; J7070; P9016-BL; Z7610

== ENCOUNTER 2018-04-13 16:28 | Inpatient (IN) | payer OTHER ==
[~2018-04-13] VITALS: Ht 157.5 cm; Wt 82.6 kg
[~2018-04-13 16:28] MED LIST changes: +ACYC5CRE2 TP; +CALC668T PO; +GABA300C PO; +INSU100V27 SQ; +INSU100V7 SQ; +VALA500T PO
--- NOTE | 2018-04-13 16:30 | NUR ---
FROM US RENAL: LOW HEMOGLOBIN. NO HEMODIALYSIS TODAY, NAD NOTED, VSS, RESP EVEN AND UNLABORED. PT WAS PUT ON MONITOR AND HOSPITAL GOWN. AT BS.
[2018-04-13 17:28] LABS: BASOPHILS % (AUTO) 0.7 % (0.0-2.0); EOSINOPHILS % (AUTO) 3.2 % (0.0-6.0); LYMPHOCYTES # (AUTO) 1.2 /CMM (0.8-4.8); LYMPHOCYTES % (AUTO) 22.5 % (20.0-44.0); MEAN CORPUSCULAR HEMOGLOBIN 32 PG (26.0-33.0); MEAN CORPUSCULAR HGB CONC 34 g/dl (31.0-36.0); MEAN CORPUSCULAR VOLUME 95 fL (82-100); MONOCYTES # (AUTO) 0.4 /CMM (0.1-1.30); NEUTROPHILS # (AUTO) 3.7 /CMM (1.8-8.9); NEUTROPHILS % (AUTO) 65.6 % (43.0-81.0); PLATELET COUNT (AUTO) 55 /CMM (150-450); RDW COEFFICIENT OF VARIATION 18.9 (11.5-15.0); RED BLOOD CELL COUNT(AUTO) 2.08 MIL/uL (4.0-5.2); WHITE BLOOD COUNT (AUTO) 5.5 K/uL (4.3-11.0)
[2018-04-13 17:32] LABS: HEMOGLOBIN 6.6 g/dL (11.5-14.8)
[2018-04-13 17:33] LABS: HEMATOCRIT 20 % (33-45)
[2018-04-13 17:42] LABS: CALCIUM, SERUM 8.1 mg/dL (8.5-10.1); CARBON DIOXIDE 26 mmol/L (21-32); CHLORIDE 107 mmol/L (98-107); CREATININE 4.2 mg/dL (0.6-1.3); GLUCOSE 225 mg/dL (74-106); POTASSIUM 4.4 mmol/L (3.5-5.1); SODIUM SERUM 139 mmol/L (136-145); UREA NITROGEN, BLOOD 20 mg/dL (7-18)
--- NOTE | 2018-04-13 17:42 | NUR ---
CALLED [facility] NEPHROLOGY WIPING RAG WASHER DR PEREZ WAS PAGED.
[2018-04-13 17:47] LABS: INR 0.96 (0.85-1.15)
--- NOTE | 2018-04-13 17:48 | NUR ---
DR. PEREZ CALLED, ON THE PHONE WITH DR BOOTH.
[2018-04-13] MEDS ORDERED: ACYC5CRE2 TP (18:26)
[2018-04-13] MEDS ORDERED: VALA500T PO (18:26)
[2018-04-13] MEDS ORDERED: GABA-534 PO (18:26)
--- NOTE | 2018-04-13 18:50 | NUR ---
MORGUE KEEPERMACHINE SIGN WRITER NOTE 1850 PT ARRIVED VIA GURNEY ACCOMPANIED BY ER STAFF AND 2 DAUGHTERS IN STABLE CONDITION. PT IS A/O X4, AFEBRILE. RESPIRATIONS ARE EVEN AND UNLABORED, NOT IN ANY ACUTE DISTRESS NOTED. PT ABLE TO AMBULATE FROM GURNEY TO BED WITH 1 STAFF ASSISTANCE. PUPILS ARE REACTIVE TO LIGHT. BILATERAL HAND BODY SHOP WORKER ARE STRONG AND EQUAL. IV SITE INTACT, NO INFILTRATION NOTED. DRESSING KEPT CLEAN AND DRY. CM CATH NOTED TO RIGHT UPPER CHEST, DRESSING KEPT CLEAN AND DRY. NO S/SX OF INFECTION. SAFETY MEASURES ARE IN PLACE. INSTRUCTED PT TO USE CALL LIGHT WHEN ASSISTANCE IS NEEDED, CALL LIGHT IS LEFT WITHIN REACH. WILL ENDORSE TO NEXT SHIFT FOR CONTINUITY OF CARE.
--- NOTE | 2018-04-13 19:30 | NUR ---
TELE/RN NOTES RECEIVED PT. LYING IN BED. PT. IS AWAKE, ALERT AND ORIENTED X3. BREATHING EVEN AND UNLABORED ON ROOM AIR. NO SOB, RESPIRATORY DISTRESS OR COMPLAINTS OF PAIN NOTED AT THIS TIME. PT. WITH RIGHT WRIST 20 GAUGE IV SALINE LOCK PRESENT, PATENT AND INTACT. PT. WITH RIGHT CHEST WALL PORTACATH PRESENT AND INTACT. PLACED EXTERNAL PEOPLESOFT TALEO MANAGER ON PT. CURRENT RHYTHM = SINUS RHYTHM HR 83. ORIENTED PT. TO ROOM. BED LOCKED AND IN LOWEST POSITION, SIDE RAILS UP X2, BED ALARM ON, CALL LIGHT WITHIN REACH. AWAITING ADMITTING ORDERS. WILL CONTINUE TO MONITOR.
[2018-04-13 20:00] VITALS: BP 126/60
--- NOTE | 2018-04-13 20:23 | NUR ---
TELE/RN NOTES CALLED [facility]. AWAITING ADMISSION ORDERS. WAS TOLD WOULD BE PAGED. AWAITING CALL BACK. WILL CONTINUE TO MONITOR.
--- NOTE | 2018-04-13 20:33 | NUR ---
TELE/RN NOTES SPOKE WITH DR. YONAS PEREZ AND RECEIVED ADMITTING ORDERS. PER DR. PEREZ NEW ORDERS: ADMIT TO TELEMETRY FOR ANEMIA/RENAL FAILURE. ACCUCHECKS ACHS WITH MILD SLIDING SCALE. RENAL/DIABETIC DIET. TRANSFUSE 1 UNIT PRBC OVER 4 HOURS NOW, MORNING LABS: CBC, BMP, MG, PHOS; IF MORNING HGB < 7 TRANSFUSE 1 UNIT PRBC. TYLENOL 650MG PO Q6 HOUR PRN MILD PAIN AND CONTINUE HOME MEDICATIONS. WILL CARRY OUT ORDERS. WILL CONTINUE TO MONITOR.
[2018-04-13] MEDS ORDERED: DEXTROSE 50%-WATER 50 ML DISP.SYRIN IV PRN (21:00)
[2018-04-13] MEDS ORDERED: INSULIN REGULAR, HUMAN 100 UNIT/ML 3 ML VIAL SQ PRN (21:00)
[2018-04-13] MEDS ORDERED: ACETAMINOPHEN 325 MG TABLET PO PRN (21:00)
[2018-04-13 21:30] LABS: BAND % (MANUAL) 1 % (0.0-5.0); NEUTROPHILS % (MANUAL) 65 (42-76)
[2018-04-13 21:31] LABS: LYMPHOCYTES % (MANUAL) 21 % (16-48); MONOCYTES % (MANUAL) 13 % (0-11.0)
[2018-04-13 21:50] VITALS: BP 127/57
--- NOTE | 2018-04-13 21:52 | NUR ---
TELE/RN NOTES PT. VITAL SIGNS STABLE, BP 127/57, HR 83, TEMP 97.9, RR 20, O2 SAT 95%. NO SOB, RESPIRATORY DISTRESS OR COMPLAINTS OF PAIN NOTED AT THIS TIME. BEGAN BLOOD TRANSFUSION OF 1 UNIT PRBC ORDERED. WILL CONTINUE TO MONITOR.
[2018-04-13 22:07] VITALS: BP 116/50
[2018-04-13] MEDS ORDERED: GABAPENTIN 100 MG CAPSULE PO SCH (22:30)
[2018-04-13 22:37] VITALS: BP 125/57
--- NOTE | 2018-04-13 22:55 | NUR ---
TELE/RN NOTES CALLED [facility] TO CLARIFY GABAPENTIN ORDERS. PER PHARMACIST TIBURCIO GABAPENTIN DOSE CHANGED TO 200MG HS DUE TO PT. RENAL FUNCTION. WILL CONTINUE TO MONITOR.
[2018-04-13] MEDS: BLOOD SUGAR DIAGNOSTIC 1 EACH STRIP IN SCH (23:05)
[2018-04-13 23:07] VITALS: BP 120/59
[2018-04-14 00:07] VITALS: BP 127/58
[2018-04-14 01:07] VITALS: BP 127/61
[2018-04-14 01:28] VITALS: BP 125/59
--- NOTE | 2018-04-14 01:28 | NUR ---
TELE/RN NOTES 1 UNIT PRBC INFUSED. PT. TOLERATED WELL. NO ADVERSE REACTIONS NOTED. PT. VITAL SIGNS STABLE. WILL CONTINUE TO MONITOR.
--- NOTE | 2018-04-14 06:08 | NUR ---
TELE/RN NOTES PT. IS LYING IN BED RESTING. BREATHING EVEN AND UNLABORED ON ROOM AIR. NO SOB, RESPIRATORY DISTRESS OR COMPLAINTS OF PAIN NOTED AT THIS TIME AND THROUGHOUT SHIFT. NO S/S OF BLEEDING NOTED AT THIS TIME AND THROUGHOUT SHIFT. PT. WITH EXTERNAL PATHOLOGICAL TECHNICIAN PRESENT AND INTACT CURRENT RHYTHM = SINUS RHYTHM HR 79. PT. WITH RIGHT CHEST WALL PORTACATH PRESENT AND INTACT. PT. WITH LEFT FOREARM 20 GAUGE IV SALINE LOCK PRESENT, PATENT AND INTACT. ALL PT. NEEDS MET. BED LOCKED AND IN LOWEST POSITION, SIDE RAILS UP X2, BED ALARM ON, CALL LIGHT WITHIN REACH. AWAITING ADMITTING ORDERS. WILL ENDORSE TO DAYSHIFT NURSE FOR CONTINUITY OF CARE.
[2018-04-14] MEDS: BLOOD SUGAR DIAGNOSTIC 1 EACH STRIP IN SCH ×4 (06:40→21:39)
[2018-04-14 07:02] LABS: BASOPHILS % (AUTO) 0.5 % (0.0-2.0); EOSINOPHILS % (AUTO) 2.5 % (0.0-6.0); HEMATOCRIT 22 % (33-45); HEMOGLOBIN 7.3 g/dL (11.5-14.8); LYMPHOCYTES % (AUTO) 19.7 % (20.0-44.0); MEAN CORPUSCULAR HEMOGLOBIN 32 PG (26.0-33.0); MEAN CORPUSCULAR HGB CONC 34 g/dl (31.0-36.0); MEAN CORPUSCULAR VOLUME 94 fL (82-100); MONOCYTES # (AUTO) 0.4 /CMM (0.1-1.30); MONOCYTES % (AUTO) 7.3 % (2.0-12.0); NEUTROPHILS # (AUTO) 3.4 /CMM (1.8-8.9); PLATELET COUNT (AUTO) 51 /CMM (150-450); RDW COEFFICIENT OF VARIATION 20.2 (11.5-15.0); RED BLOOD CELL COUNT(AUTO) 2.29 MIL/uL (4.0-5.2); WHITE BLOOD COUNT (AUTO) 4.9 K/uL (4.3-11.0)
[2018-04-14 07:18] LABS: CALCIUM, SERUM 8.2 mg/dL (8.5-10.1); CARBON DIOXIDE 25 mmol/L (21-32); CHLORIDE 110 mmol/L (98-107); CREATININE 4.1 mg/dL (0.6-1.3); GLUCOSE 117 mg/dL (74-106); MAGNESIUM 2.4 mg/dL (1.8-2.4); PHOSPHORUS 5.4 mg/dL (2.5-4.9); POTASSIUM 4.3 mmol/L (3.5-5.1); SODIUM SERUM 142 mmol/L (136-145); UREA NITROGEN, BLOOD 22 mg/dL (7-18)
--- NOTE | 2018-04-14 07:58 | NUR ---
CORRESPONDENT OPENING NOTES RECEIVED PT FROM NIGHTSHIFT NURSE IN STABLE CONDITION. PT IS A/O X3. NO SOB OR SIGNS OF DISTRESS NOTED. BREATHING IS EVEN AND UNLABORED. PT IS ON RA AND SATING WELL. SHE DENIES ANY PAIN AT THIS TIME. IV TO LEFT FA NOTED TO BE PATENT AND INTACT. NO REDNESS OR SIGNS OF INFILTRATION NOTED. RIGHT CHEST WALL PORTACATH NOTED TO BE INTACT FOR HD ACCESS. PT IS SR ON THE TELE MONITOR WITH A HR OF 78. BED IN LOW LOCKED POSITION, SIDE RAILS UP X2, CALL LIGHT WITHIN REACH. WILL CONTINUE TO MONITOR
[2018-04-14 08:00] VITALS: BP 131/54
[2018-04-14] MEDS ORDERED: DEXTROSE 50%-WATER 50 ML DISP.SYRIN IV PRN (08:30)
[2018-04-14 09:09] LABS: BAND % (MANUAL) 1 % (0.0-5.0); EOSINOPHILS % (MANUAL) 2 % (0-4); LYMPHOCYTES % (MANUAL) 15 % (16-48); MONOCYTES % (MANUAL) 3 % (0-11.0); MYELOCYTES % 1 % (0-0); NEUTROPHILS % (MANUAL) 78 (42-76)
[2018-04-14] MEDS: VALACYCLOVIR HCL 500 MG TABLET PO SCH (09:21)
[2018-04-14] MEDS: ACYCLOVIR 5% CREAM 5 GM TUBE TP SCH ×2 (09:22→16:48)
[2018-04-14] MEDS: INSULIN ASPART/LISPRO 100 UNIT/ML CARTRIDGE SQ PRN ×2 (12:22→21:45)
--- NOTE | 2018-04-14 12:25 | NUR ---
HEMODIALYSIS: PT S/P HD. 2 L REMOVED. VITALS REMAIN STABLE.
[2018-04-14 16:00] VITALS: BP 118/60
--- NOTE | 2018-04-14 19:07 | NUR ---
MS RN CLOSING NOTES PT REMAINS STABLE ALL NEEDS WERE MET DURING SHIFT AND ORDERS CARRIED OUT ACCORDINGLY. ALL DUE MEDS GIVEN. VITALS REMAIN STABLE. SAFETY MEASURES REMAIN IN PLACE. WILL ENDORSE TO NIGHTSHIFT NURSE FOR CARLOS
--- NOTE | 2018-04-14 19:30 | NUR ---
MS RN NOTE RECEIVED PATIENT FROM DAY SHIFT, PATIENT IS ALERT AND ORIENTEDX3, FAMILY AT THE BEDSIDE, DENIES RESPIRATORY DISTRESS OR PAIN. IV ON LEFT FA IS PATENT AND INTACT, SL ONLY. SRX2, BED IN LOW POSITION, CALL LIGHT WITHIN REACH, WILL CONTINUE TO MONITOR PATIENT.
[2018-04-14 20:00] VITALS: BP 117/50
[2018-04-14] MEDS ORDERED: GABAPENTIN 300 MG CAPSULE PO SCH (22:00)
[2018-04-15] MEDS: BLOOD SUGAR DIAGNOSTIC 1 EACH STRIP IN SCH ×2 (06:02→11:02)
[2018-04-15 06:09] LABS: BASOPHILS % (AUTO) 0.6 % (0.0-2.0); EOSINOPHILS % (AUTO) 2.1 % (0.0-6.0); HEMATOCRIT 23 % (33-45); HEMOGLOBIN 7.6 g/dL (11.5-14.8); LYMPHOCYTES % (AUTO) 17.9 % (20.0-44.0); MEAN CORPUSCULAR HEMOGLOBIN 32 PG (26.0-33.0); MEAN CORPUSCULAR HGB CONC 33 g/dl (31.0-36.0); MEAN CORPUSCULAR VOLUME 94 fL (82-100); MONOCYTES # (AUTO) 0.4 /CMM (0.1-1.30); MONOCYTES % (AUTO) 6.1 % (2.0-12.0); NEUTROPHILS # (AUTO) 4.2 /CMM (1.8-8.9); NEUTROPHILS % (AUTO) 73.3 % (43.0-81.0); RDW COEFFICIENT OF VARIATION 20.3 (11.5-15.0); RED BLOOD CELL COUNT(AUTO) 2.43 MIL/uL (4.0-5.2); WHITE BLOOD COUNT (AUTO) 5.8 K/uL (4.3-11.0)
[2018-04-15 06:24] LABS: PLATELET COUNT (AUTO) 44 /CMM (150-450)
[2018-04-15 06:46] LABS: IRON, SERUM 57 ug/dl (50-175); TOTAL IRON BINDING CAPACITY 187 ug/dl (250-450)
[2018-04-15 07:00] LABS: FERRITIN 565 ng/mL (8-388)
--- NOTE | 2018-04-15 07:16 | NUR ---
MS RN NOTE PATIENT IS RESTING IN BED COMFORTABLY, DENIES RESPIRATORY DISTRESS OR PAIN AT THIS TIME. IV ON LEFT FA IS PATENT AND INTACT, NO ACUTE DISTRESS NOTED THROUGHOUT THE SHIFT. ENDORSED TO DAY SHIFT NURSE FOR CARLOS.
--- NOTE | 2018-04-15 07:30 | NUR ---
MS RN OPENING NOTE PATIENT IS ALERT AND ORIENTED x3. NO PAIN AT THIS TIME. NO SOB OR DISTRESS NOTED. CALL LIGHT WITHIN REACH AND SAFETY MEASURES IMPLEMENTED. ABLE TO COMMUNICATE NEEDS. BLOOD SUGARS TO BE CHECKED THROUGHOUT SHIFT AND INSULIN TO BE GIVEN NEEDED. AMBULATORY WITH ASSISTANCE. ON ROOM AIR TOLERATING WELL AT 98%. WILL CONTINUE TO MONITOR THROUGHOUT SHIFT
[2018-04-15 08:00] VITALS: BP 140/61
[2018-04-15] MEDS: VALACYCLOVIR HCL 500 MG TABLET PO SCH (08:32)
[2018-04-15] MEDS: ACYCLOVIR 5% CREAM 5 GM TUBE TP SCH (09:00)
[2018-04-15 10:17] LABS: BAND % (MANUAL) 1 % (0.0-5.0); EOSINOPHILS % (MANUAL) 4 % (0-4); LYMPHOCYTES % (MANUAL) 15 % (16-48); MONOCYTES % (MANUAL) 5 % (0-11.0); NEUTROPHILS % (MANUAL) 75 (42-76)
--- NOTE | 2018-04-15 11:06 | NUR ---
MS FARIA NOTE [id number] INSULIN TO BE GIVEN WHEN FOOD AT BEDSIDE Addendum: 04/15/18 at 1213 by BONITA BESS RN 3 UNITS OF INSULIN GIVEN; FOOD AT BEDSIDE. PATIENT CURRENTLY EATING AT THIS TIME. EDUCATED ON S/S OF HYPO/HYPERGLYCEMIA
[2018-04-15] MEDS: INSULIN ASPART/LISPRO 100 UNIT/ML CARTRIDGE SQ PRN (12:08)
--- NOTE | 2018-04-15 14:30 | NUR ---
international sales representative note patient sent home in stable condition. vitals sign. all due medications given as ordered. all nursing care needs attended to as needed. call light within reach at all times. safety measures implemented. able to communicate needs. photo of wound on sacral area refused by patient. all belongings accounted for at discharge and with patient and family at discharge. all discharge instructions given to patient and family at bedside; both able to return instructions back. iv removed, skin intact. left via private car with son and grandson
== END 2018-04-15 15:17 | disposition home or self-care (01) | DRG 194 ==
LOC: ER 16:30 → TELE 18:30 → MED 04-14 10:09
PROVIDERS: ADMIT Internal Medicine Nephrology; ATTEND Internal Medicine Nephrology
PROC: 30233N1 Transfusion of Nonautologous Red Blood Cells into Peripheral Vein, Percutaneous Approach (ICD-10-PCS; principal; 2018-04-13)
PROC: 5A1D70Z Performance of Urinary Filtration, Intermittent, Less than 6 Hours Per Day (ICD-10-PCS; 2018-04-14)
DX: I13.2 Hypertensive heart and chronic kidney disease with heart failure and with stage 5 chronic kidney disease, or end stage renal disease (principal); N18.6 End stage renal disease; E11.22 Type 2 diabetes mellitus with diabetic chronic kidney disease; D69.6 Thrombocytopenia, unspecified; B02.9 Zoster without complications; D63.1 Anemia in chronic kidney disease; E83.9 Disorder of mineral metabolism, unspecified; I50.9 Heart failure, unspecified; Z87.891 Personal history of nicotine dependence; Z99.2 Dependence on renal dialysis; Z90.710 Acquired absence of both cervix and uterus; R23.8 Other skin changes
CPT/HCPCS: 36415; 71045-TC; 80048-TC; 82728-TC; 82962-TC; 83540-TC; 83735-TC; 84100-TC; 85025-TC; 85730-TC; 86850-TC; 86921-TC; 87081-TC; 90935-TC; A4606; J1815; J7030; J7050; P9016-BL; Z7610

== ENCOUNTER 2018-10-12 11:47 | Inpatient (IN) | payer OTHER ==
[~2018-10-12] VITALS: Ht 157.5 cm; Wt 73.9 kg
[~2018-10-12 11:47] MED LIST changes: -ALBU18HF2 INH; -CALC668T PO; +GABA-534 PO; -GABA300C PO; -INSU100V7 SQ
--- NOTE | 2018-10-12 11:47 | NUR ---
PT PIPER 80 FROM DOCTOR'S OFFICE C/O MIDSTERNAL CP, NON RADIATING; PT AAOX4, RESPIRATIONS EVEN AND UNLABORED, NO SOB, NAD NOTED, VSS, PENDING MD BARRON
--- NOTE | 2018-10-12 12:20 | NUR ---
BLOOD SPECIMEN COLLECTED BY LAB, NO URINE ORDER AT THIS TIME
[2018-10-12 12:27] LABS: BASOPHILS % (AUTO) 0.5 % (0.0-2.0); EOSINOPHILS % (AUTO) 2.9 % (0.0-6.0); HEMATOCRIT 32 % (33-45); HEMOGLOBIN 10.2 g/dL (11.5-14.8); LYMPHOCYTES # (AUTO) 0.6 /CMM (0.8-4.8); LYMPHOCYTES % (AUTO) 11.9 % (20.0-44.0); MEAN CORPUSCULAR HGB CONC 32 g/dl (31.0-36.0); MEAN CORPUSCULAR VOLUME 93 fL (82-100); MONOCYTES # (AUTO) 0.4 /CMM (0.1-1.30); MONOCYTES % (AUTO) 6.9 % (2.0-12.0); NEUTROPHILS # (AUTO) 3.9 /CMM (1.8-8.9); NEUTROPHILS % (AUTO) 77.8 % (43.0-81.0); RED BLOOD CELL COUNT(AUTO) 3.45 MIL/uL (4.0-5.2); WHITE BLOOD COUNT (AUTO) 5.1 K/uL (4.3-11.0)
[2018-10-12 12:30] LABS: PLATELET COUNT (AUTO) 37 /CMM (150-450)
[2018-10-12 12:31] LABS: CALCIUM, SERUM 7.9 mg/dL (8.5-10.1); CARBON DIOXIDE 24 mmol/L (21-32); CHLORIDE 107 mmol/L (98-107); CREATININE 4.1 mg/dL (0.6-1.3); GLUCOSE 242 mg/dL (74-106); POTASSIUM 4.5 mmol/L (3.5-5.1); SODIUM SERUM 140 mmol/L (136-145); UREA NITROGEN, BLOOD 43 mg/dL (7-18)
[2018-10-12 13:20] LABS: EOSINOPHILS % (MANUAL) 5 % (0-4); LYMPHOCYTES % (MANUAL) 10 % (16-48); MONOCYTES % (MANUAL) 6 % (0-11.0); NEUTROPHILS % (MANUAL) 79 (42-76)
--- NOTE | 2018-10-12 13:20 | NUR ---
CALLED [employer] COPYWRITER WAS PAGED.
--- NOTE | 2018-10-12 14:35 | NUR ---
[id number] TELE JANAELONGMONTLaura
--- NOTE | 2018-10-12 15:14 | NUR ---
REPORT GIVEN TO BIENVENIDO ANGULO FOR CARLOS
[2018-10-12 16:00] VITALS: BP_SYST 143; BP_SYST 144; BP_DIAS 70; BP_DIAS 76
--- NOTE | 2018-10-12 16:28 | NUR ---
RE RECORDING MIXER ADMITTING NOTES PATIENT ADMITTED TO UNIT VIA GURNEY ACCOMPANIED BY 2 E.R. STAFF AND PT'S DAUGHTER. A/O X4, ABLE TO MAKE NEEDS KNOWN IN GERMAN WITH NO C/O CHEST PAIN, SOB, HEADACHE OR ANY DISCOMFORTS ON ADMISSION. PT AND FAMILY ORIENTED TO UNIT AND ROOM. PT ON 02 VIA N/C AT 2LPM, BREATHING EVEN WITH NO ACUTE RESPIRATORY DISTRESS NOTED. PT PLACED ON TELE-MONITORING WITH READING OF SR AND HR OF 82, NO C/O CARDIAC DISTRESS VOICED. V/S TAKEN AND RECORDED. PHYSICAL ASSESSMENT DONE. PT NOTED WITH RIGHT UPPER CHEST WALL PERMA CATHETER WITH DRESSING C/D/I. PIV ON RFA G#22 INTACT AND PATENT. PT WITH CLEAR LUNG SOUNDS BILATERALLY ON AUSCULTATION. ABDOMEN SOFT, NON-TENDED AND NON-DISTENDED. PHOTOS OF SKIN CONDITION TAKEN AND FILED ON CHART. SAFETY MEASURES INITIATED. BED PLACED ON LOW/LOCKED POSITION WITH SR UP X2. CALL LIGHT IN REACH. INSTRUCTED PT TO CALL IF ASSISTANCE IS NEEDED. WILL CONTINUE TO MONITOR PT ACCORDINGLY.
[2018-10-12] MEDS ORDERED: MAG HYDROX/AL HYDROX/SIMETH 30 ML UDC PO PRN (17:30)
[2018-10-12] MEDS ORDERED: HYDROCODONE/APAP 5/325MG 1 EACH TABLET PO PRN (17:30)
[2018-10-12] MEDS ORDERED: ONDANSETRON HCL/PF 4 MG/2 ML VIAL IVP PRN (17:30)
[2018-10-12] MEDS ORDERED: Z GUARD REMEDY 2 OZ OINT TP PRN (17:30)
[2018-10-12] MEDS ORDERED: ZOLPIDEM TARTRATE 5 MG TABLET PO PRN (17:30)
[2018-10-12] MEDS ORDERED: MAGNESIUM HYDROXIDE 30 ML UDC PO PRN (17:30)
[2018-10-12] MEDS ORDERED: ENOXAPARIN SODIUM 40 MG/0.4 ML DISP.SYRIN SQ SCH (17:30)
[2018-10-12] MEDS: ACETAMINOPHEN 325 MG TABLET PO PRN (17:44)
--- NOTE | 2018-10-12 17:47 | NUR ---
RN NOTES PATIENT COMPLAINED OF HEADACHE AND ASKED FOR TYLENOL. PRN TYLENOL 650 MG PO GIVEN AT 1744, WILL CONTINUE TO MONITOR PT.
--- NOTE | 2018-10-12 18:41 | NUR ---
WIC SITE COORDINATOR CLOSING NOTES PATIENT IN BED ASLEEP AT THIS TIME, EASILY AROUSABLE. PT IS A/O X4. BRITISH SPEAKING. MAINTAINED ON 02 VIA N/C @ 2LPM, TOLERATING WELL WITH NO ACUTE RESPIRATORY DISTRESS NOTED. ON TELE-MONITORING WITH CURRENT READING OF SR AND HR OF 84, NO C/O CHEST PAIN OR ANY CARDIAC DISTRESS VOICED. IV ACCESS ON RFA G#22 INTACT AND PATENT, FLUSHES WELL. ALL NEEDS AND CARE PROVIDED WELL. ALL SAFETY MEASURES KEPT IN PLACE. BED IN LOW/LOCKED POSITION WITH SR UP X2. CALL LIGHT IN REACH. WILL ENDORSE TO [place] [facility] NURSE FOR CARLOS.
--- NOTE | 2018-10-12 19:00 | NUR ---
CHILD CARE ASSISTANT OPENING NOTES RECEIVED PATIENT IN BED AWAKE ALERT AND ORIENTED X 4, RESPIRATIONS EVEN AND UNLABORED WITH EQUAL RISE AND FALL OF CHEST, ON 02 2 L VIA NC, NO RESPIRATORY DISTRESS PRESENT, DENIES ANY SOB OR PAIN AT THIS TIME, DENIES CHEST PAIN, ON CARDIAC MONITORING SR 84. RIGHT FA #22G INTACT AND PATENT, NO REDNESS, NO INFILTRATION PRESENT, BED SINGH OFFERED NEEDED, ORIENTED TO STAFF AND CALL LIGHT AND KEPT WITHIN REACH, SAFETY PRECAUTIONS IN PLACE, LOW BED AND LOCKED ALL NEEDS ATTENDED, REMAINS COMFORTABLE AT THIS, WILL CONTINUE TO MONITOR.
[2018-10-12 20:00] VITALS: BP 127/54
[2018-10-13] VITALS: BP 123/59
[2018-10-13] MEDS: ACETAMINOPHEN 325 MG TABLET PO PRN ×2 (03:23→14:02)
--- NOTE | 2018-10-13 03:27 | NUR ---
ADVERTISING DESIGNER NOTES PATIENT COMPLAINT OF PAIN TO HEADACHE AND SORENESS TO NECK, BACK AND LEFT TORSO AREA, REQUESTING FOR TYLENOL, PATIENT REPOSITIONED, TYLENOL GIVEN ORDERED, WILL CONTINUE TO MONITOR FOR EFFECTIVENESS, CALL LIGHT KEPT WITHIN REACH.
[2018-10-13 04:00] VITALS: BP 115/50
[2018-10-13 06:14] LABS: BASOPHILS % (AUTO) 0.5 % (0.0-2.0); HEMATOCRIT 32 % (33-45); HEMOGLOBIN 10.4 g/dL (11.5-14.8); LYMPHOCYTES # (AUTO) 0.7 /CMM (0.8-4.8); LYMPHOCYTES % (AUTO) 13.1 % (20.0-44.0); MEAN CORPUSCULAR HGB CONC 33 g/dl (31.0-36.0); MEAN CORPUSCULAR VOLUME 92 fL (82-100); MONOCYTES # (AUTO) 0.4 /CMM (0.1-1.30); MONOCYTES % (AUTO) 7.5 % (2.0-12.0); NEUTROPHILS # (AUTO) 4.1 /CMM (1.8-8.9); NEUTROPHILS % (AUTO) 75.9 % (43.0-81.0); RED BLOOD CELL COUNT(AUTO) 3.43 MIL/uL (4.0-5.2); WHITE BLOOD COUNT (AUTO) 5.4 K/uL (4.3-11.0)
--- NOTE | 2018-10-13 06:22 | NUR ---
OFFICE TECHNOLOGY INSTRUCTOR CLOSING NOTES PATIENT IN BED SLEEPING BUT EASILY AROUSABLE , ALERT AND ORIENTED X 4, RESPIRATIONS EVEN AND UNLABORED WITH EQUAL RISE AND FALL OF CHEST, ON 02 2 L VIA NC, NO RESPIRATORY DISTRESS PRESENT, DENIES ANY SOB OR PAIN AT THIS TIME, DENIES CHEST PAIN TYLENOL WAS EFFECTIVE FOR HEADACHE, ON CARDIAC MONITORING SR 75. RIGHT FA #22G INTACT AND PATENT, NO REDNESS, NO INFILTRATION PRESENT, BED SINGH OFFERED NEEDED, CALL LIGHT AND KEPT WITHIN REACH, SAFETY PRECAUTIONS IN PLACE, LOW BED AND LOCKED, BED ALARM IN PLACE, ALL NEEDS ATTENDED, FLUIDS OFFERED, REMAINS COMFORTABLE AT THIS, WILL CONTINUE TO MONITOR AND ENDORSE TO NEXT SHIFT.
[2018-10-13 06:34] LABS: CALCIUM, SERUM 7.8 mg/dL (8.5-10.1); CARBON DIOXIDE 21 mmol/L (21-32); CHLORIDE 108 mmol/L (98-107); CREATININE 4.1 mg/dL (0.6-1.3); GLUCOSE 119 mg/dL (74-106); MAGNESIUM 2.4 mg/dL (1.8-2.4); PHOSPHORUS 5.3 mg/dL (2.5-4.9); POTASSIUM 4.2 mmol/L (3.5-5.1); SODIUM SERUM 140 mmol/L (136-145); UREA NITROGEN, BLOOD 42 mg/dL (7-18)
[2018-10-13 06:46] LABS: PLATELET COUNT (AUTO) 36 /CMM (150-450)
--- NOTE | 2018-10-13 06:50 | NUR ---
PROP AND SCENERY MAKER NOTES RECEIVED CRITICAL LAB PLT 36 LEATHA MADE AWARE, NO ORDERS AT THIS TIME, WILL ENDORSE TO NEXT SHIFT FOR CONTINUITY OF CARE.
--- NOTE | 2018-10-13 07:30 | NUR ---
MS RN OPENING NOTES RECEIVED PATIENT IN STABLE CONDITION. BED SIDE RAILS ARE UP X2. BED IS LOCKED AND LOWERED. CALL LIGHT IS WITHIN REACH. IV LINE IS INTACT AND PATENT. WILL CONTINUE TO MONITOR PATIENT.
[2018-10-13 08:00] VITALS: BP 101/49
[2018-10-13 08:38] LABS: EOSINOPHILS % (MANUAL) 10 % (0-4); LYMPHOCYTES % (MANUAL) 7 % (16-48); MONOCYTES % (MANUAL) 3 % (0-11.0); NEUTROPHILS % (MANUAL) 80 (42-76)
[2018-10-13 09:06] LABS: CHOLESTEROL 105 mg/dL (<200); HDL CHOLESTEROL 42 mg/dL (40-60); LDL 59 mg/dL (0-99); TRIGLYCERIDES 58 mg/dL (30-150)
[2018-10-13] MEDS ORDERED: ALPRAZOLAM 0.25 MG TABLET PO PRN (09:30)
[2018-10-13 12:00] VITALS: BP 126/63
[2018-10-13 16:00] VITALS: BP 103/51
--- NOTE | 2018-10-13 19:25 | NUR ---
TELERN FULLY AWAKE, FAMILY AT BEDSIDE. [place] CITIZEN SPEAKING ONLY. NEEDS HAND PRINTED CIRCUIT BOARD ASSEMBLER. NO DICOMFORTS FOR NOW, STATED HAD HD TODAY. NO OTHER NEEDS MADE. SR ON THE MONITOR.
[2018-10-13 20:00] VITALS: BP 108/53
--- NOTE | 2018-10-13 23:51 | NUR ---
TELERN NAKIA TAY FOR TONIGHT. HJS CARE DONE , REPOSITIONED FOR COMFORT.
[2018-10-14] VITALS: BP 101/47
[2018-10-14 04:00] VITALS: BP 96/52
[2018-10-14 06:26] LABS: CALCIUM, SERUM 7.7 mg/dL (8.5-10.1); CARBON DIOXIDE 24 mmol/L (21-32); CHLORIDE 106 mmol/L (98-107); GLUCOSE 108 mg/dL (74-106); PHOSPHORUS 5.5 mg/dL (2.5-4.9); POTASSIUM 3.9 mmol/L (3.5-5.1); SODIUM SERUM 140 mmol/L (136-145); UREA NITROGEN, BLOOD 41 mg/dL (7-18)
[2018-10-14 06:51] LABS: BASOPHILS % (AUTO) 0.6 % (0.0-2.0); EOSINOPHILS % (AUTO) 3.8 % (0.0-6.0); HEMATOCRIT 32 % (33-45); HEMOGLOBIN 10.4 g/dL (11.5-14.8); LYMPHOCYTES # (AUTO) 0.9 /CMM (0.8-4.8); LYMPHOCYTES % (AUTO) 18.2 % (20.0-44.0); MEAN CORPUSCULAR HGB CONC 32 g/dl (31.0-36.0); MEAN CORPUSCULAR VOLUME 93 fL (82-100); MONOCYTES # (AUTO) 0.4 /CMM (0.1-1.30); MONOCYTES % (AUTO) 8.3 % (2.0-12.0); NEUTROPHILS # (AUTO) 3.6 /CMM (1.8-8.9); NEUTROPHILS % (AUTO) 69.1 % (43.0-81.0); RED BLOOD CELL COUNT(AUTO) 3.48 MIL/uL (4.0-5.2); WHITE BLOOD COUNT (AUTO) 5.2 K/uL (4.3-11.0)
--- NOTE | 2018-10-14 06:55 | NUR ---
TELERN REMAINS SR ON THE MONITOR. NO NEEDS MADE.
--- NOTE | 2018-10-14 07:30 | NUR ---
WELFARE SUPERVISOR OPENING NOTES RECEIVED PT LAYING IN BED WITH HOB ELEVATED, SLEEPING COMFORTABLY. PT IS EASILY AROUSABLE, A/OX4. RESPIRATIONS ARE EVEN AND UNLABORED, NOT IN ANY ACUTE DISTRESS NOTED. DENIES ANY CHEST PAIN, SOB, N/V. IV SITE IS INTACT, NO INFILTRATION NOTED. DRESSING KEPT CLEAN AND DRY. SAFETY MEASURES ARE IN PLACE. WILL CONTINUE TO MONITOR THROUGHOUT SHIFT FOR CONTINUITY OF CARE.
[2018-10-14 07:57] LABS: PLATELET COUNT (AUTO) 35 /CMM (150-450)
[2018-10-14 08:00] VITALS: BP 113/55
--- NOTE | 2018-10-14 10:04 | NUR ---
DIRECTOR OF WOMEN'S SERVICES NOTES--NOTIFIED DR. PERALTA RE: PLATELET LEVEL W/ NO NEW ORDERS.
[2018-10-14 12:00] VITALS: BP 118/57
[2018-10-14 13:28] LABS: EOSINOPHILS % (MANUAL) 1 % (0-4); LYMPHOCYTES % (MANUAL) 19 % (16-48); MONOCYTES % (MANUAL) 3 % (0-11.0); NEUTROPHILS % (MANUAL) 77 (42-76)
[2018-10-14 16:00] VITALS: BP 111/64
--- NOTE | 2018-10-14 18:30 | NUR ---
MS E LEARNING COORDINATOR NOTE PT DISCHARGE TO HOME IN STABLE CONDITION ACCOMPANIED BY SON MIC GONZALEZ VIA PERSONAL VEHICLE. PT IS A/O X4, AFEBRILE. RESPIRATIONS ARE EVEN AND UNLABORED, NOT IN ANY ACUTE DISTRESS NOTED. PT DENIES ANY PAIN, SOB, N/V. PUPILS ARE REACTIVE TO LIGHT, BILATERAL HAND EXTRA HAND ARE STRONG AND EQUAL. DISCOLORATION NOTED TO BOTH BLE, PICTURES TAKEN AND PLACED IN CHART. ABDOMEN IS SOFT AND NONDISTENDED, BOWEL SOUNDS ARE PRESENT IN ALL 4 QUADRANTS UPON AUSCULTATION. DENIES ANY BLADDER DISCOMFORT. IV SITE REMOVED, APPLIED PRESSURE AND TOLERATED WELL. PERMA CATH TO RUC INTACT, DRESSING KEPT CLEAN AND DRY. NO S/SX OF INFECTION NOTED. EXPLAINED DISCHARGE PAPERWORK TO PT AND SON MIC WITH VERBAL AND WRITTEN UNDERSTANDING. PER PT, SHE WILL BE COMPLIANT WITH DIALYSIS EVERY MWF. ID BAND REMOVED. PT ACCOMPANIED BY TO PERSONAL VEHICLE VIA W/C WITH 1 STAFF ASSISTANCE. PT LEFT IN STABLE CONDITION.
[2018-11-06] MEDS ORDERED: LACT1CAP72 PO (09:52)
[2018-11-06] MEDS ORDERED: Nepro PO (09:52)
[2018-11-06] MEDS ORDERED: ACET325T53 PO (09:52)
[2018-11-06] MEDS ORDERED: METF-440 PO (09:52)
== END 2018-10-14 18:30 | disposition home or self-care (01) | DRG 198 ==
LOC: ER 11:49 → TELE 14:28 → MED 10-14 15:11
PROVIDERS: ADMIT Internal Medicine; ATTEND Internal Medicine
PROC: 5A1D70Z Performance of Urinary Filtration, Intermittent, Less than 6 Hours Per Day (ICD-10-PCS; principal; 2018-10-13)
DX: I25.10 Atherosclerotic heart disease of native coronary artery without angina pectoris (principal); I13.2 Hypertensive heart and chronic kidney disease with heart failure and with stage 5 chronic kidney disease, or end stage renal disease; E11.22 Type 2 diabetes mellitus with diabetic chronic kidney disease; E11.51 Type 2 diabetes mellitus with diabetic peripheral angiopathy without gangrene; B02.9 Zoster without complications; D89.0 Polyclonal hypergammaglobulinemia; E83.51 Hypocalcemia; N18.6 End stage renal disease; D63.1 Anemia in chronic kidney disease; E78.5 Hyperlipidemia, unspecified; E66.9 Obesity, unspecified; Z68.31 Body mass index [BMI] 31.0-31.9, adult; Z99.2 Dependence on renal dialysis; Z90.710 Acquired absence of both cervix and uterus; Z87.891 Personal history of nicotine dependence; I77.6 Arteritis, unspecified; I50.33 Acute on chronic diastolic (congestive) heart failure
CPT/HCPCS: 36415; 71045-TC; 80048-TC; 80061-TC; 83735-TC; 83880; 84100-TC; 84484-TC; 85025-TC; 85730-TC; 87081-TC; 90935-TC; 93307-TC; G0378

== ENCOUNTER 2018-11-01 13:39 | Inpatient (IN) | payer OTHER ==
[~2018-11-01] VITALS: Ht 157.5 cm; Wt 75.3 kg
--- NOTE | 2018-11-01 14:03 | NUR ---
#20 gauge angio cath inserted to LAC x1 stick , blood drawn , procedure tolerated well
--- NOTE | 2018-11-01 14:24 | NUR ---
seen and evaluated by Dr Varela
[2018-11-01 14:30] LABS: BASOPHILS % (AUTO) 0.3 % (0.0-2.0); EOSINOPHILS % (AUTO) 0.2 % (0.0-6.0); HEMATOCRIT 33 % (33-45); HEMOGLOBIN 10.8 g/dL (11.5-14.8); LYMPHOCYTES # (AUTO) 0.4 /CMM (0.8-4.8); LYMPHOCYTES % (AUTO) 3.9 % (20.0-44.0); MEAN CORPUSCULAR HGB CONC 32 g/dl (31.0-36.0); MEAN CORPUSCULAR VOLUME 93 fL (82-100); MONOCYTES # (AUTO) 0.6 /CMM (0.1-1.30); MONOCYTES % (AUTO) 5.7 % (2.0-12.0); NEUTROPHILS # (AUTO) 9.6 /CMM (1.8-8.9); NEUTROPHILS % (AUTO) 89.9 % (43.0-81.0); RED BLOOD CELL COUNT(AUTO) 3.58 MIL/uL (4.0-5.2); WHITE BLOOD COUNT (AUTO) 10.6 K/uL (4.3-11.0)
[2018-11-01 14:36] LABS: PLATELET COUNT (AUTO) 39 /CMM (150-450)
--- NOTE | 2018-11-01 14:37 | NUR ---
blood culture obtained by laborer tin can
[2018-11-01 14:48] LABS: CALCIUM, SERUM 8.5 mg/dL (8.5-10.1); CARBON DIOXIDE 23 mmol/L (21-32); CHLORIDE 109 mmol/L (98-107); CREATININE 4.5 mg/dL (0.6-1.3); GLUCOSE 170 mg/dL (74-106); POTASSIUM 4.7 mmol/L (3.5-5.1); SODIUM SERUM 140 mmol/L (136-145); UREA NITROGEN, BLOOD 45 mg/dL (7-18)
[2018-11-01 15:05] LABS: ALANINE AMINOTRANSFERASE 12 U/L (12-78); ALBUMIN 2.9 g/dL (3.4-5.0); ALKALINE PHOSPHATASE 42 U/L (46-116); ASPARTATE AMINOTRANSFERASE 14 U/L (15-37); B-TYPE NATRIURETIC PEPTIDE 4387 PG/ML (0-125); BILIRUBIN,DIRECT 0.2 mg/dL (0.0-0.2); TOTAL PROTEIN, SERUM 6.7 g/dL (6.4-8.2)
[2018-11-01 15:19] LABS: LYMPHOCYTES % (MANUAL) 5 % (16-48); METAMYELOCYTES % 1 % (0-0); MONOCYTES % (MANUAL) 5 % (0-11.0); NEUTROPHILS % (MANUAL) 89 (42-76)
[2018-11-01] MEDS ORDERED: VANCOMYCIN 1 GM in IV D5W 250 ML IV ONE (15:30)
--- NOTE | 2018-11-01 15:56 | NUR ---
bedside US performed RSC dialysis site Addendum: 11/01/18 at 1558 by BAILEY bedside US performed right arm
--- NOTE | 2018-11-01 16:02 | NUR ---
right SSC culture from site obtained and sent to lab
[2018-11-01] MEDS ORDERED: HYDROCODONE/APAP 10/325MG 1 EA TABLET PO PRN (17:00)
[2018-11-01] MEDS ORDERED: MAGNESIUM HYDROXIDE 30 ML UDC PO PRN (17:00)
[2018-11-01] MEDS ORDERED: HYDROCODONE/APAP 5/325MG 1 EACH TABLET PO PRN (17:00)
[2018-11-01] MEDS ORDERED: MAG HYDROX/AL HYDROX/SIMETH 30 ML UDC PO PRN (17:00)
[2018-11-01] MEDS ORDERED: TEMAZEPAM 15 MG CAPSULE PO PRN (17:00)
[2018-11-01] MEDS ORDERED: HYDROCODONE/APAP 5/325MG 1 EACH TABLET PO ONE (17:00)
--- NOTE | 2018-11-01 17:02 | NUR ---
pt refused pain med at thsi time - denies pain
--- NOTE | 2018-11-01 18:08 | NUR ---
CALLED REPORT TO FLOOR , BIENVENIDO PROCTOR BUSY WITH AMBULANCE PT AT PRESENT.
[2018-11-01] MEDS ORDERED: FEE PK DOSING 1 MIN EA MC ONE (18:12)
[2018-11-01] MEDS ORDERED: VANCOMYCIN 500 MG in IV D5W 100 ML IV PRN (18:30)
--- NOTE | 2018-11-01 18:35 | NUR ---
REPORT CALLED TO HITESH FARIA
--- NOTE | 2018-11-01 18:36 | NUR ---
TRANSFERED PT TO ROOM 306 WITH MICA LAMINATING MACHINE FEEDER VIA [facility] IN STABLE CONDITION WITH FAMILY MEMBERS
--- NOTE | 2018-11-01 19:30 | NUR ---
MS/RN OPENING NOTES PT RECEIVED FROM ER VIA FAMILY WAGNER AT BEDSIDE. MALTESE SPEAKING. A/OX3. ON ROOM AIR, BREATHING EVEN AND UNLABORED. DENIES SOB, WITH C/O OF HEADACHE. NO C/O OF N/V. RIGHT CHEST WALL PERMACATH DRESSING IN PLACE. IV TO LAC PATENT AND INTACT. ORIENTED PT TO ROOM AND CALL LIGHT. BED IN LOW/LOCKED POSITION WITH CALL LIGHT IN REACH, UPPER SIDE RAILS UPX2. WILL CONTINUE TO MONITOR
[2018-11-01 20:00] VITALS: BP 107/49
[2018-11-01] MEDS: ACETAMINOPHEN 325 MG TABLET PO PRN (20:12)
--- NOTE | 2018-11-01 20:32 | NUR ---
MS/RN NOTES PT C/O HEADACHE. REQUESTING TYLENOL. ADMINISTERED ORDERED.
[2018-11-01] MEDS ORDERED: DEXTROSE 50%-WATER 50 ML DISP.SYRIN IV PRN (21:00)
--- NOTE | 2018-11-01 21:45 | NUR ---
MS/RN NOTES HD NURSE WITH ORDERS FROM DR. VAZQUEZ FOR ALTEPLASE 2MG X2 TO DECLOT HEMODIALYSIS CATHETER. FAXED ORDER TO NURSING SENIOR HYDROGEOLOGIST. AWAITING MEDICATION
[2018-11-01] MEDS ORDERED: ALTEPLASE 100 MG/VIAL VIAL IV ONE (22:00)
[2018-11-01] MEDS: MEROPENEM 500 MG in IV NS 0.9% 50 ML IV SCH (22:22)
[2018-11-01] MEDS: BLOOD SUGAR DIAGNOSTIC 1 EACH STRIP IN SCH (22:24)
[2018-11-01] MEDS ORDERED: WATER FOR INJECTION,STERILE 10 ML ONE (22:29)
[2018-11-01] MEDS ORDERED: ALTEPLASE CATHFLO 2 MG/VIAL ONE (22:36)
[2018-11-01] MEDS: INSULIN REGULAR, HUMAN 100 UNIT/ML 3 ML VIAL SQ PRN (22:37)
--- NOTE | 2018-11-01 22:45 | NUR ---
MS/RN NOTES FOLLOW UP WITH NURSING PARCEL POST CLERK REGARDING MEDICATION. SHE IS BRINGING IT UP
--- NOTE | 2018-11-01 23:15 | NUR ---
MS/RN NOTES PT FOUND WITH HD DRESSING REMOVED AND HD CATHETER PULLED OUT APPROX 2 INCHES PER HD NURSE. STAT CXR ORDERED FOR PLACEMENT PRIOR TO ADMINISTRATION OF ALTEPLASE. DRESSING REAPPLIED. PER HD NURSE, WILL WAIT TO GIVE ALTEPLASE TOMORROW WHEN CXR RESULTS. CANAL DRIVER AWARE. ALTEPLASE AND STERILE WATER PLACED IN PT'S CASSETTE.
[2018-11-02] MEDS: BLOOD SUGAR DIAGNOSTIC 1 EACH STRIP IN SCH ×4 (06:17→22:40)
[2018-11-02] MEDS: ACETAMINOPHEN 325 MG TABLET PO PRN ×2 (06:17→20:20)
[2018-11-02] MEDS: INSULIN REGULAR, HUMAN 100 UNIT/ML 3 ML VIAL SQ PRN ×3 (06:25→22:56)
[2018-11-02 06:33] LABS: BASOPHILS % (AUTO) 0.3 % (0.0-2.0); EOSINOPHILS % (AUTO) 0.1 % (0.0-6.0); HEMATOCRIT 29 % (33-45); HEMOGLOBIN 9.5 g/dL (11.5-14.8); LYMPHOCYTES # (AUTO) 0.2 /CMM (0.8-4.8); LYMPHOCYTES % (AUTO) 4.2 % (20.0-44.0); MEAN CORPUSCULAR HGB CONC 32 g/dl (31.0-36.0); MEAN CORPUSCULAR VOLUME 94 fL (82-100); MONOCYTES # (AUTO) 0.3 /CMM (0.1-1.30); MONOCYTES % (AUTO) 5.4 % (2.0-12.0); NEUTROPHILS # (AUTO) 4.7 /CMM (1.8-8.9); RED BLOOD CELL COUNT(AUTO) 3.12 MIL/uL (4.0-5.2); WHITE BLOOD COUNT (AUTO) 5.2 K/uL (4.3-11.0)
[2018-11-02 06:38] LABS: CALCIUM, SERUM 8.5 mg/dL (8.5-10.1); CARBON DIOXIDE 21 mmol/L (21-32); CHLORIDE 107 mmol/L (98-107); CREATININE 5.2 mg/dL (0.6-1.3); GLUCOSE 152 mg/dL (74-106); MAGNESIUM 2.1 mg/dL (1.8-2.4); POTASSIUM 4.9 mmol/L (3.5-5.1); SODIUM SERUM 139 mmol/L (136-145); UREA NITROGEN, BLOOD 59 mg/dL (7-18)
--- NOTE | 2018-11-02 06:42 | NUR ---
MS/RN NOTES PRELIMINARY BLOOD CX SHOWS GRAM + COCCI. NOTIFIED EPIC CORPORATE PHYSICAL SECURITY SUPERVISOR. AWAITING ORDERS. Addendum: 11/02/18 at 0656 by PEDRO CARDENAS RN PER RITIKA PITT - NO NEW ORDERS
[2018-11-02 06:51] LABS: CHOLESTEROL 82 mg/dL (<200); HDL CHOLESTEROL 38 mg/dL (40-60); LDL 39 mg/dL (0-99); TRIGLYCERIDES 83 mg/dL (30-150)
[2018-11-02 06:52] LABS: PLATELET COUNT (AUTO) 26 /CMM (150-450)
--- NOTE | 2018-11-02 06:56 | NUR ---
MS/RN NOTES NOTIFIED RITIKA AGUILA OF CRITICAL PLATELET OF 26, TRENDING DOWN FROM 39. AWAITING ORDERS Addendum: 11/02/18 at 0732 by PEDRO CARDENAS RN SGAE PAZ
--- NOTE | 2018-11-02 07:00 | NUR ---
MS/RN CLOSING NOTES PT AWAKE, SITTING UP IN BED. CUBAN SPEAKING. A/OX3. ON ROOM AIR, BREATHING EVEN AND UNLABORED. DENIES SOB, IN NO ACUTE DISTRESS. NOTES HEADACHE, ADMINISTERED PRN TYLENOL AND GAVE WET TOWEL TO FOREHEAD. RIGHT CHEST WALL PERMACATH DRESSING INTACT, MODERATE AMOUNT OF PURULENT DRAINAGE NOTED. WOUND CX PENDING. IV TO LAC PATENT AND INTACT. HD NURSE TO ADMINISTER ACTIVASE 2MG X2 DOSES TODAY ACCORDING TO RESULT OF CHEST XRAY. BED IN LOW/LOCKED POSITION WITH CALL LIGHT IN REACH. HOB ELEVATED. BILATERAL UPPER SIDE RAILS IN PLACE. ALL NEEDS MET AND KEPT COMFORTABLE DURING SHIFT. WILL ENDORSE TO DAY SHIFT RN CARLOS.
--- NOTE | 2018-11-02 07:00 | NUR ---
MS RN NOTES PATIENT IN BED ALERT ORIENTED X 3. NO ACUTE DISTRESS NOTED. BREATHING UNLABORED. NO SOB NOTED. IV ACCESS PATENT AND INTACT, NO REDNESS OR SWELLING NOTED. SAFETY MEASURES IN PLACE. CALL LIGHT WITHIN REACH. WILL CONTINUE TO MONITOR ACCORDINGLY.
--- NOTE | 2018-11-02 07:23 | NUR ---
NO NEW ORDERS
[2018-11-02 08:00] VITALS: BP 91/48
[2018-11-02 08:58] LABS: LYMPHOCYTES % (MANUAL) 3 % (16-48); MONOCYTES % (MANUAL) 8 % (0-11.0); NEUTROPHILS % (MANUAL) 89 (42-76)
[2018-11-02] MEDS: MEROPENEM 500 MG in IV NS 0.9% 50 ML IV SCH (09:21)
--- NOTE | 2018-11-02 11:01 | NUR ---
WOUND CARE CONSULT: PT PRESENTS WITH REDNESS AROUND DIALYSIS CATH SITE. DEFER TO . WILL SEE PRN. PT IS INDEPENDENT WITH BED MOBILITY AND CONTINENT. CURRENT DIMA SCORE IS 18. Addendum: 11/02/18 at 1102 by DAVID DOOLEY WNDNU Amended: Links added.
[2018-11-02 16:00] VITALS: BP 110/61
[2018-11-02] MEDS ORDERED: NEPRO VAN 237 ML CAN PO PRN (16:00)
--- NOTE | 2018-11-02 17:13 | NUR ---
Patient is alert,speaks Mexican. She lives at home with son/family who is her primary caregiver. Patient ambulates with a walker as needed and semi-independent with adl's.Has Home O2 prn.She receives hemodialysis 3x/week MWF @ [facility] [phone] chairtime 5pm. Has good family support. She plan to return home, judie Yung [phone] will provide ride. Addendum: 11/02/18 at 1713 by SETH WOLFE RN Amended: Links added.
[2018-11-02] MEDS: LACTOBACILLUS RHAMNOSUS GG 1 EACH CAP.SPRINK PO SCH (17:35)
--- NOTE | 2018-11-02 18:16 | NUR ---
MS FARIA NOTES RECEIVED NEW ORDER FROM DR SARANYA RICH TO GET CONSENT FOR INSERTION OF DIALYSIS CATHETER FOR TOMORROW, TYPE AND SCREEN, PTT, PT WITH INR, PLATELETPHERESIS. NOTED AND CARRIED OUT. Addendum: 11/02/18 at 1841 by CHELE ALMONTE RN NPO AFTER MIDNIGHT.
--- NOTE | 2018-11-02 19:00 | NUR ---
MS RN NOTES PATIENT IN BED ALERT ORIENTED X 3. FAMILY AT BEDSIDE. NO ACUTE DISTRESS NOTED. BREATHING UNLABORED. NO SOB NOTED. IV ACCESS PATENT AND INTACT, NO REDNESS OR SWELLING NOTED. DUE MEDICATIONS GIVEN, NO ASE NOTED. NEEDS ATTENDED AND ANTICIPATED. KEPT CLEAN DRY AND COMFORTABLE. SAFETY MEASURES IN PLACE. CALL LIGHT WITHIN REACH. ENDORSED TO NIGHT NURSE FOR CONTINUITY OF CARE.
--- NOTE | 2018-11-02 19:05 | NUR ---
MS/RN OPENING NOTES PT AWAKE, RESTING IN BED. ARABIC SPEAKING. A/OX3. ON ROOM AIR, BREATHING EVEN AND UNLABORED. DENIES SOB, AND PAIN IN NO ACUTE DISTRESS. RIGHT CHEST WALL PERMACATH DRESSING IN PLACE. IV TO LAC PATENT AND INTACT. BED IN LOW/LOCKED POSITION WITH CALL LIGHT IN REACH. HOB ELEVATED. BILATERAL UPPER SIDE RAILS IN PLACE. ALL NEEDS MET AND KEPT COMFORTABLE DURING SHIFT. WILL CONTINUE TO MONITOR
[2018-11-02 20:00] VITALS: BP 111/50
--- NOTE | 2018-11-02 22:56 | NUR ---
MS/RN NOTES BLOOD SUGAR 148, PT REFUSING INSULIN DESPITE EDUCATION OF RISKS/BENEFITS X3.
--- NOTE | 2018-11-03 00:30 | NUR ---
MS/RN NOTES PLATELETS READY. CLARIFIED WITH AYLA YOST IF SHE WANTS TO GIVE PLATELETS NOW OR WAIT TO GIVE CLOSER TO PROCEDURE TIME. OKAY TO ADMINISTER PLATELETS NOW AND RECHECK LEVEL IN AM PRIOR TO PROCEDURE. MAY WANT PLATELET LEVEL >50 PRIOR TO PROCEDURE.
[2018-11-03 01:00] VITALS: BP 104/48
[2018-11-03 01:30] VITALS: BP 104/46
[2018-11-03 03:00] VITALS: BP 114/71
--- NOTE | 2018-11-03 03:16 | NUR ---
MS/RN NOTES PLATELET TRANSFUSION COMPLETED. PT TOLERATED WELL. V/S STABLE. NO ADVERSE REACTIONS NOTED. PT IN NO DISTRESS.
[2018-11-03] MEDS: ONDANSETRON HCL/PF 4 MG/2 ML VIAL IVP PRN (05:49)
[2018-11-03 06:01] LABS: CALCIUM, SERUM 7.8 mg/dL (8.5-10.1); CARBON DIOXIDE 21 mmol/L (21-32); CHLORIDE 106 mmol/L (98-107); CREATININE 6.2 mg/dL (0.6-1.3); GLUCOSE 118 mg/dL (74-106); POTASSIUM 4.6 mmol/L (3.5-5.1); SODIUM SERUM 139 mmol/L (136-145); UREA NITROGEN, BLOOD 73 mg/dL (7-18)
[2018-11-03 06:03] LABS: BASOPHILS % (AUTO) 0.3 % (0.0-2.0); EOSINOPHILS % (AUTO) 2.3 % (0.0-6.0); HEMATOCRIT 28 % (33-45); HEMOGLOBIN 9.2 g/dL (11.5-14.8); LYMPHOCYTES # (AUTO) 0.3 /CMM (0.8-4.8); LYMPHOCYTES % (AUTO) 6.7 % (20.0-44.0); MEAN CORPUSCULAR HGB CONC 33 g/dl (31.0-36.0); MEAN CORPUSCULAR VOLUME 93 fL (82-100); MONOCYTES # (AUTO) 0.4 /CMM (0.1-1.30); MONOCYTES % (AUTO) 9.5 % (2.0-12.0); NEUTROPHILS # (AUTO) 3.7 /CMM (1.8-8.9); NEUTROPHILS % (AUTO) 81.2 % (43.0-81.0); WHITE BLOOD COUNT (AUTO) 4.6 K/uL (4.3-11.0)
[2018-11-03 06:15] LABS: PLATELET COUNT (AUTO) 21 /CMM (150-450)
[2018-11-03 06:16] LABS: THYROID STIMULATING HORMONE 2.612 uIU/mL (0.358-3.74)
--- NOTE | 2018-11-03 06:26 | NUR ---
MS/RN NOTES RITIKA PITT NOTIFIED OF CRITICAL PLATELETS OF 21 DESPITE 1 UNIT OF PLATELET TRANSFUSION LAST NIGHT. MADE AWARE OF THIS MORNING'S COAGS, H&H AND DR. MEDRANO'S NOTE FOR POSSIBLE FFP ACCORDING TO COAG LEVELS. AWAITING ORDERS Addendum: 11/03/18 at 0642 by PEDRO CARDENAS RN NO NEW ORDERS
[2018-11-03 06:39] LABS: APPEARANCE,URINE CLOUDY (CLEAR); BILIRUBIN,URINE 1+ (NEGATIVE); BLOOD, URINE 3+ Ery/uL (NEGATIVE); COLOR,URINE YELLOW (YELLOW); KETONES,URINE NEGATIVE (NEGATIVE); LEUKOCYTE ESTERASE ,URINE TRACE (NEGATIVE); NITRITE, URINE NEGATIVE (NEGATIVE); PH,URINE 6.5 (5.0-8.0); PROTEIN,URINE 3+ mg/dl (NEGATIVE); UGLUCOSE NEGATIVE (NEGATIVE); UROBILINOGEN,URINE 0.2 EU/dL (0.2)
[2018-11-03] MEDS: BLOOD SUGAR DIAGNOSTIC 1 EACH STRIP IN SCH ×4 (07:00→22:21)
[2018-11-03] MEDS ORDERED: IOHEXOL 240MG/ML 50 ML IV ONE (07:30)
[2018-11-03] MEDS ORDERED: HEPARIN SODIUM, PORCINE 1,000 UNIT/ML VIAL ONE ×2 (07:30→09:47)
[2018-11-03] MEDS ORDERED: LIDOCAINE HCL/PF 1% 30 ML SDV ONE (07:30)
--- NOTE | 2018-11-03 07:30 | NUR ---
SPOKE TO NIK FROM OR REGARDING PT'S PLATELET LEVEL OF 21 THIS MORNING DESPITE GIVING 1 UNIT PLATELET LAST NIGHT. HE SAID THAT DR. RICH IS AWARE THAT PLATELETS ARE 21 THIS MORNING AND WILL CONTINUE WITH HD CATHETER INSERTION THROUGH THE GROIN. FERMÍN AUGER MILL OPERATOR MADE AWARE. DAY SHIFT RN AWARE.
--- NOTE | 2018-11-03 07:35 | NUR ---
MS RN NOTES PATIENT TRANSPORTED TO OPERATING ROOM IN STABLE CONDITION. SAFETY MEASURES IN PLACE.
[2018-11-03] MEDS ORDERED: MIDAZOLAM HCL 2 MG/2ML VIAL ONE (07:43)
[2018-11-03 08:00] VITALS: BP 128/66
[2018-11-03 08:49] LABS: BACTERIA,URINE Few /HPF (None Seen); RBC,URINE TOO NUMEROUS TO COUN /HPF (0-2); SQUAMOUS EPITHELIAL CELL,UR Few /HPF (None Seen); WBC,URINE 0-2 /HPF (0-3)
[2018-11-03 09:19] LABS: EOSINOPHILS % (MANUAL) 2 % (0-4); LYMPHOCYTES % (MANUAL) 8 % (16-48); MONOCYTES % (MANUAL) 2 % (0-11.0); NEUTROPHILS % (MANUAL) 88 (42-76)
[2018-11-03] MEDS: LACTOBACILLUS RHAMNOSUS GG 1 EACH CAP.SPRINK PO SCH ×2 (10:00→17:26)
--- NOTE | 2018-11-03 10:35 | NUR ---
MS RN NOTES PATIENT CAME BACK FROM OPERATING ROOM WITH STABLE VITAL SIGNS. ALERT ORIENTED X 3. NO ACUTE DISTRESS NOTED. BREATHING UNLABORED. WITH NEW ORDERS MAY RESUME PREOP ORDERS. NOTED AND CARRIED OUT.
--- NOTE | 2018-11-03 12:00 | NUR ---
MS RN NOTES SEEN AND EVALUATED BY DR YONAS PEREZ WITH NEW ORDERS MADE, NOTED AND CARRIED OUT.
[2018-11-03] MEDS: INSULIN REGULAR, HUMAN 100 UNIT/ML 3 ML VIAL SQ PRN ×3 (12:49→22:23)
[2018-11-03] MEDS: ACETAMINOPHEN 325 MG TABLET PO PRN (13:04)
--- NOTE | 2018-11-03 14:20 | NUR ---
MS RN NOTES CALLED [facility] REGARDING DIALYSIS SCHEDULE SAID PER DOCTOR CHRIS SCHEDULE FOR TOMORROW.CLARIFIED DIALYSIS SCHEDULE WITH DR YONAS PEREZ SAID IT WILL BE FOR TOMORROW..
[2018-11-03 16:00] VITALS: BP 107/51
--- NOTE | 2018-11-03 19:00 | NUR ---
MS RN NOTES PATIENT IN BED ALERT ORIENTED X 3. NO ACUTE DISTRESS NOTED. BREATHING UNLABORED. NO SOB NOTED. IV ACCESS PATENT AND INTACT, NO REDNESS OR SWELLING NOTED. DIALYSIS ACCESS ON RIGHT JUGULAR INTACT WITH DRESSING.DUE MEDICATISONS GIVEN, NO ASE NOTED. NEEDS ATTENDED AND ANTICIPATED. KEPT CLEAN, DRY AND COMFORTABLE. SAFETY MEASURES IN PLACE. CALL LIGHT WITHIN REACH. ENDORSED TO NIGHT NURSE FOR CONTINUITY OF CARE.
--- NOTE | 2018-11-03 19:30 | NUR ---
MS RN NOTES RECEIVED RESTING COMFORTABLY ON BED,A/O X2-3,BREATHING REGULAR,NOT IN ANY FORM OF DISTRESS.FAMILY MEMBERS AT BEDSIDE.NOTED RIGHT JUGULAR CATHETER FOR HD ACCESS, LFA SALINE LOCK FOR MEDS.RIGHT CW OLD HD ACCESS WITH DRESSING INTACT AND DRY.DENIES DISCOMFORTS AT THE MOMENT,CALL LIGHT IN REACH,NEEDS ANTICIPATED.
[2018-11-03 20:00] VITALS: BP 94/44
--- NOTE | 2018-11-03 22:00 | NUR ---
MS RN NOTES ACCU-CHECK BLOOD SUGAR CHECK 212,COVERED WITH HUMULIN 4 UNITS PER SLIDING SCALE.
--- NOTE | 2018-11-04 03:00 | NUR ---
MS RN NOTES SLEEPING,KEPT WARM AND COMFORTABLE.
[2018-11-04] MEDS ORDERED: VANCOMYCIN 500 MG in IV D5W 100 ML IV PRN (06:00)
--- NOTE | 2018-11-04 06:00 | NUR ---
MS RN NOTES ACCU-CHECK BLOOD SUGAR CHECK 156,REFUSED 2 UNITS ON HUMULIN SLIDING SCALE.
[2018-11-04] MEDS: BLOOD SUGAR DIAGNOSTIC 1 EACH STRIP IN SCH ×4 (06:23→21:27)
[2018-11-04] MEDS: INSULIN REGULAR, HUMAN 100 UNIT/ML 3 ML VIAL SQ PRN ×3 (06:24→21:27)
[2018-11-04 06:31] LABS: BASOPHILS % (AUTO) 0.2 % (0.0-2.0); HEMATOCRIT 23 % (33-45); HEMOGLOBIN 7.5 g/dL (11.5-14.8); LYMPHOCYTES # (AUTO) 0.5 /CMM (0.8-4.8); LYMPHOCYTES % (AUTO) 8.8 % (20.0-44.0); MEAN CORPUSCULAR HGB CONC 32 g/dl (31.0-36.0); MEAN CORPUSCULAR VOLUME 94 fL (82-100); MONOCYTES # (AUTO) 0.3 /CMM (0.1-1.30); MONOCYTES % (AUTO) 5.3 % (2.0-12.0); NEUTROPHILS # (AUTO) 4.6 /CMM (1.8-8.9); NEUTROPHILS % (AUTO) 85.7 % (43.0-81.0); WHITE BLOOD COUNT (AUTO) 5.4 K/uL (4.3-11.0)
[2018-11-04 06:37] LABS: PLATELET COUNT (AUTO) 33 /CMM (150-450)
--- NOTE | 2018-11-04 06:40 | NUR ---
MS RN NOTES REPORTED BY LAB.PLATELET WENT UP TO 33, FROM 21 YESTERDAY
--- NOTE | 2018-11-04 06:46 | NUR ---
MS RN NOTES ON BED A/O X3,SPEAK SINHALA,CLAIMED SHE SLEPT WELL, FOR HD TODAY ORDERED BT DR YONAS PEREZ.IN NO ACUTE DISTRESS.CALL LIGHT IN REACH,NEEDS ATTENDED.WILL ENDORSE TO DAY NURSE FOR CARLOS.
[2018-11-04 06:49] LABS: CALCIUM, SERUM 7.8 mg/dL (8.5-10.1); CARBON DIOXIDE 21 mmol/L (21-32); CHLORIDE 106 mmol/L (98-107); GLUCOSE 159 mg/dL (74-106); MAGNESIUM 2.6 mg/dL (1.8-2.4); POTASSIUM 5.7 mmol/L (3.5-5.1); SODIUM SERUM 139 mmol/L (136-145)
[2018-11-04 06:51] LABS: CREATININE 7.5 mg/dL (0.6-1.3); PHOSPHORUS 8.6 mg/dL (2.5-4.9); UREA NITROGEN, BLOOD 96 mg/dL (7-18)
--- NOTE | 2018-11-04 07:00 | NUR ---
MS RN NOTES PATIENT IN BED ALERT ORIENTED X 3. NO ACUTE DISTRESS NOTED. BREATHING UNLABORED. NO SOB NOTED. IV ACCESS PATENT AND INTACT, NO REDNESS OR SWELLING NOTED.RIGHT JUGULAR IV ACCESS INTACT WITH DRESSING. RIGHT CHEST WALL OLD HD ACCESS DRESSING CLEAN DRY AND INTACT. SAFETY MEASURES IN PLACE. CALL LIGHT WITHIN REACH. WILL CONTINUE TO MONITOR ACCORDINGLY. Addendum: 11/04/18 at 2001 by CHELE ALMONTE RN CORRECTION FOR NOTE: RIGHT JUGULAR IV ACCESS INTACT WITH DRESSING. INSTEAD: RIGHT JUGULAR HD ACCESS INTACT WITH DRESSING.
[2018-11-04 07:49] LABS: BAND % (MANUAL) 3 % (0.0-5.0); LYMPHOCYTES % (MANUAL) 10 % (16-48); MONOCYTES % (MANUAL) 5 % (0-11.0); NEUTROPHILS % (MANUAL) 82 (42-76)
[2018-11-04 08:00] VITALS: BP 107/55
[2018-11-04] MEDS: LACTOBACILLUS RHAMNOSUS GG 1 EACH CAP.SPRINK PO SCH ×2 (08:13→17:30)
[2018-11-04] MEDS ORDERED: VANCOMYCIN 1 GM in IV D5W 250 ML IV ONE (13:00)
[2018-11-04 16:00] VITALS: BP 95/58
--- NOTE | 2018-11-04 19:00 | NUR ---
MS RN NOTE OLD IV LINE PULLED OUT, INSERTED NEW IV LINE ON LEFT HAND G22 X 1 ATTEMPT WITH GOOD BACK FLOW. PATIENT TOLERATED WELL.
--- NOTE | 2018-11-04 19:00 | NUR ---
MS RN NOTES PATIENT IN BED ALERT ORIENTED X 3. NO ACUTE DISTRESS NOTED. BREATHING UNLABORED. NO SOB NOTED. IV ACCESS PATENT AND INTACT, NO REDNESS OR SWELLING NOTED.RIGHT JUGULAR HD ACCESS INTACT WITH DRESSING. RIGHT CHEST WALL OLD HD ACCESS DRESSING CLEAN DRY AND INTACT. DUE MEDICATIONS GIVEN, NO ASE NOTED. NEEDS ATTENDED AND ANTICIPATED. KEPT CLEAN DRY AND COMFORTABLE.SAFETY MEASURES IN PLACE. CALL LIGHT WITHIN REACH. ENDORSED TO NIGHT NURSE FOR CONTINUITY OF CARE.
--- NOTE | 2018-11-04 19:15 | NUR ---
RN INITIAL NOTES Patient in bed, awake. A/O x3, stable saturation on RA. Right IJ HD cath dressing C/D/I, no bleeding notes, denies pain. Maintained safety, call light within reach, will cont to monitor.
[2018-11-04 20:00] VITALS: BP 114/52
[2018-11-05] MEDS ORDERED: VANCOMYCIN 500 MG in IV D5W 100 ML IV PRN (06:00)
[2018-11-05] MEDS: BLOOD SUGAR DIAGNOSTIC 1 EACH STRIP IN SCH ×4 (06:10→21:54)
[2018-11-05] MEDS: INSULIN REGULAR, HUMAN 100 UNIT/ML 3 ML VIAL SQ PRN ×3 (06:11→17:39)
[2018-11-05 06:20] LABS: IMMUNOGLOBULIN A, SERUM 161 mg/dL (64-422); IMMUNOGLOBULIN G, SERUM 1054 mg/dL (700-1600); IMMUNOGLOBULIN M, SERUM 276 mg/dL (26-217)
--- NOTE | 2018-11-05 06:35 | NUR ---
MS RN CLOSING NOTES Patient slept well, no acute events overnight. Stable oxygen saturation on RA. Right IJ HD cath dressing C/D/I denies pain. Continued on IV antibiotic PRN HD, ID following. Blood sugar monitored, stable blood sugar. Maintained safety, call light within reach. Will endorse to oncoming RN.
--- NOTE | 2018-11-05 07:28 | NUR ---
MS RN OPENING NOTE RECEIVED PT IN BED, ALERT AND ORIENTED X4, PRIMARILY BULGARIAN SPEAKING BUT ABLE TO MAKE BASIC NEEDS KNOWN VIA URDU. DENIES N/V, CHEST PAIN, SOB. BREATHING IS EVEN AND UNLABORED ON ROOM AIR. RIGHT IJ HD CATH DRESSING IS CLEAN, DRY AND INTACT. L FA #22G IV IS SALINE LOCKED WITHOUT REDNESS OR SELLING. ALL NEEDS ATTENDED TO. BED IS LOCKED AND IN LOWEST POSITION, SIDE RAILS UP X2, CALL LIGHT AND POSSESSIONS WITHIN REACH.
[2018-11-05 07:51] LABS: BASOPHILS % (AUTO) 0.6 % (0.0-2.0); EOSINOPHILS % (AUTO) 6.3 % (0.0-6.0); HEMATOCRIT 22 % (33-45); HEMOGLOBIN 7.2 g/dL (11.5-14.8); LYMPHOCYTES # (AUTO) 0.8 /CMM (0.8-4.8); LYMPHOCYTES % (AUTO) 20.7 % (20.0-44.0); MEAN CORPUSCULAR HGB CONC 33 g/dl (31.0-36.0); MEAN CORPUSCULAR VOLUME 92 fL (82-100); MONOCYTES # (AUTO) 0.3 /CMM (0.1-1.30); MONOCYTES % (AUTO) 8.2 % (2.0-12.0); NEUTROPHILS # (AUTO) 2.4 /CMM (1.8-8.9); NEUTROPHILS % (AUTO) 64.2 % (43.0-81.0); WHITE BLOOD COUNT (AUTO) 3.8 K/uL (4.3-11.0)
[2018-11-05 07:52] LABS: CALCIUM, SERUM 7.6 mg/dL (8.5-10.1); CARBON DIOXIDE 26 mmol/L (21-32); CHLORIDE 104 mmol/L (98-107); CREATININE 5.7 mg/dL (0.6-1.3); GLUCOSE 89 mg/dL (74-106); MAGNESIUM 2.2 mg/dL (1.8-2.4); PHOSPHORUS 7.2 mg/dL (2.5-4.9); POTASSIUM 4.3 mmol/L (3.5-5.1); SODIUM SERUM 140 mmol/L (136-145); UREA NITROGEN, BLOOD 72 mg/dL (7-18)
[2018-11-05 08:00] VITALS: BP 120/68
--- NOTE | 2018-11-05 08:00 | NUR ---
MS RN NOTE THE NURSE WAS ALERTED BY BIENVENIDO HANLEY THAT PT HAD BEEN FOUND ON THE GROUND BY BIENVENIDO DIXON. THE NURSE ENTERED THE ROOM AND FOUND THE PT LOCATED TO THE LEFT OF THE FOOT OF THE BED, SITTING ON THE FLOOR AND ACCOMPANIED BY BIENVENIDO DIXON. THE NURSE INFORMED SUPERVISING NURSE EMELIA AND BONITA WAS UTILIZED FOR [place] TRANSLATION. THE PT STATED THAT SHE HAD GOTTEN UP TO USE THE RESTROOM BUT WAS UNABLE TO REACH HER CALL LIGHT. THE PT GOT UP FROM BED, WALKED TOWARDS A CHAIR AT THE FOOT OF THE BED AND BECAME WEAK. THE PT STATED THAT SHE GRABBED ONTO THE CHAIR HANDLES AND SANK DOWN ONTO THE FLOOR, LANDING ON BOTH KNEES. THE PT THEN REPOSITIONED HERSELF ONTO HER BOTTOM AND WAITED FOR HELP. THE PT STATES SHE REMEMBERS THE ENTIRE EVENT. THE PT DENIES HITTING HER HEAD, SYNCOPE DIZZINESS, AND STATES THAT THE REASON SHE LANDED ON HER KNEES IS BECAUSE HER LEGS FELT WEAK BEFORE SHE COULD REACH HER CHAIR SINCE SHE DID NOT USE HER WALKER TO AMBULATE. BOTH THE LEFT AND RIGHT KNEE PRESENT WITH NORMAL FULL RANGE OF MOTION WITHOUT PAIN. THERE IS NO PRESENCE OF HEMATOMA FORMATION, BRUISING, SWELLING, ABNORMAL FLEXION OR EXTENSION. THE PT WAS ASSISTED BACK TO THE CHAIR. VITAL SIGNS WERE OBTAINED FOLLOWS: BP: 120/68, HR: 100, R: 20, TEMP: 97.7, SP02: 98% ON ROOM AIR. THE PT REQUESTED TO BE ASSISTED TO THE BATHROOM. THE PT WAS ASSISTED TO THE BATHROOM UTILIZING 2 PERSON STAND BY ASSIST AND HER WALKER WITHOUT INCIDENT. THE PT DENIES ANY PAIN WITH AMBULATION OR CHANGES IN GAIT AT THIS TIME. THE PT WAS ASSISTED BACK TO THE CHAIR, HER POSSESSIONS, BREAKFAST AND CALL LIGHT WERE PLACED WITHIN REACH. THE NURSE PROVIDED ADDITIONAL EDUCATION TO THE PT INCLUDING TO NEVER EXIT THE BED OR CHAIR WITHOUT ASSISTANCE OR A STAFF MEMBER PRESENT, THE PT VERBALIZED UNDERSTANDING. THE PT STATED SHE FELT NERVOUS AFTER THE EVENT WHICH WAS CAUSING NAUSEA, THE NURSE ADMINISTERED ZOFRAN 4MG IV ORDERED FOR NAUSEA. FERMÍN ROMAN NP WAS INFORMED OF THE INCIDENT, NO NEW ORDERS AT THIS TIME. SON MIC HOLMAN WAS INFORMED OF THE INCIDENT VIA TELEPHONE.
[2018-11-05 08:01] LABS: PLATELET COUNT (AUTO) 37 /CMM (150-450)
--- NOTE | 2018-11-05 08:05 | NUR ---
MS BIENVENIDO CRITICAL LAB VALUE CRITICAL LAB VALUE OF PLATELETS 37,000 RECEIVED FROM LAB. REPORTED TO HOSPITALIST FERMÍN ROMAN NP. NO NEW ORDERS AT THIS TIME.
[2018-11-05] MEDS: ONDANSETRON HCL/PF 4 MG/2 ML VIAL IVP PRN (08:15)
[2018-11-05] MEDS: LACTOBACILLUS RHAMNOSUS GG 1 EACH CAP.SPRINK PO SCH ×2 (08:15→17:23)
[2018-11-05 08:19] LABS: BAND % (MANUAL) 1 % (0.0-5.0); EOSINOPHILS % (MANUAL) 6 % (0-4); LYMPHOCYTES % (MANUAL) 24 % (16-48); MONOCYTES % (MANUAL) 11 % (0-11.0); NEUTROPHILS % (MANUAL) 58 (42-76)
[2018-11-05 11:10] LABS: *SPE A/G RATIO 0.9 (0.7-1.7); *SPE ALBUMIN 2.4 g/dL (2.9-4.4); *SPE ALPHA-1-GLOBULIN 0.4 g/dL (0.0-0.4); *SPE ALPHA-2-GLOBULIN 0.6 g/dL (0.4-1.0); *SPE BETA GLOBULIN 0.9 g/dL (0.7-1.3); *SPE GLOBULIN, TOTAL 2.8 g/dL (2.2-3.9); *SPE M-SPIKE 0.4 g/dL (Not Observed)
--- NOTE | 2018-11-05 12:12 | NUR ---
MS RN ACCU CHECK BS: 86. NO COVERAGE ADMINISTERED. PT ASSISTED WITH LUNCH TRAY AND EATING LUNCH.
[2018-11-05 16:00] VITALS: BP 127/60
--- NOTE | 2018-11-05 18:00 | NUR ---
MS BIENVENIDO ROSE INFORMED PHARMACY OF VANCO TROUGH LEVEL OF 21 FROM THIS AM. NO VANCO TO BE GIVEN POST HD TODAY.
--- NOTE | 2018-11-05 18:30 | NUR ---
MS RN NOTE DR. MEDRANO AT THE BEDSIDE. THE PT AND DAUGHTER IN LAW INFORMED THE NURSE AND DR. MEDRANO THAT THE PT ALREADY RECEIVED A BONE MARROW BIOPSY AT [facility] APPROXIMATELY 4-5 MONTHS AGO. THE PT STATED SHE MAY BE ABLE TO BRING IN THE REPORT. RECEIVED ORDERS FROM DR. MEDRANO TO OBTAIN BONE MARROW BIOPSY RESULTS FROM [facility], WILL ENDORSE TO FOOD SCIENTIST NURSE.
--- NOTE | 2018-11-05 18:48 | NUR ---
MS RN CLOSING NOTE PT IN BED, ALERT AND ORIENTED X4, PRIMARILY SOUTH KOREAN SPEAKING BUT ABLE TO MAKE BASIC NEEDS KNOWN VIA TURKMEN. DENIES N/V, CHEST PAIN, SOB. BREATHING IS EVEN AND UNLABORED ON ROOM AIR. RIGHT IJ HD CATH DRESSING IS CLEAN, DRY AND INTACT. L FA #22G IV IS SALINE LOCKED WITHOUT REDNESS OR SELLING. ADLS PROVIDED. ALL NEEDS ATTENDED TO. BED IS LOCKED AND IN LOWEST POSITION, SIDE RAILS UP X2, CALL LIGHT AND POSSESSIONS WITHIN REACH. DAUGHTER IN LAW AT THE BEDSIDE. HD NURSE AT THE BEDSIDE TO BEGIN HD ORDERED. WILL ENDORSE TO DEVELOPMENT CONSULTANT NURSE FOR CONTINUITY OF CARE.
--- NOTE | 2018-11-05 19:00 | NUR ---
RN MS OPENING NOTES RECEIVED PATIENT IN BED AWAKE ALERT AND ORIENTED X4, RESPIRATIONS EVEN AND UNLABORED WITH EQUAL RISE AND FALL OF CHEST, DENIES ANY PAIN OR DISCOMFORT AT THIS TIME, PATIENT IS CURRENTLY RECEIVING DIALYSIS AT THIS TIME, DIALYSIS NURSE AT BEDSIDE, PATIENT HAS RIGHT IJ HD CATHETER WITH DRESSING INTACT, IV SITE TO LEFT FA #22G INTACT AND PATENT, NO REDNESS, NO INFILTRATION , ORIENTED TO STAFF AND CALL LIGHT AND KEPT WITHIN REACH, SAFETY PRECAUTIONS IN PLACE, LOW BED AND LOCKED, BED ALARM IN PLACE, ALL NEEDS ATTENDED AT THIS TIME, WILL CONTINUE TO MONITOR AND ADDRESS NEEDS. Addendum: 11/05/18 at 2055 by MICHAEL ANAYA RN CLARIFICATION RIGHT FA #22 SL
[2018-11-05 20:00] VITALS: BP 122/53
--- NOTE | 2018-11-05 21:30 | NUR ---
RN MS NOTES DIALYSIS COMPLETE. PER DIALYSIS NURSE NO FLUID REMOVED AT THIS TIME. VS WNL.135/68,18,97%RA,93,0/10 WARM BLANKETS PROVIDED PATIENT IS AWAKE AND ALERT AND ORIENTED X4. RIGHT IJ HD CATH. INTACT AND DRESSING IS CLEAN AND DRY. PATIENT REPOSITIONED.
--- NOTE | 2018-11-05 21:35 | NUR ---
RN MS NOTES RECEIVED PRELIMINARY BLOOD CULTURE RESULTS GRAM + COCCI IN [place] PATIENT IS CURRENTLY ON VANCOMYCIN THERAPY. WILL CONTINUE TO MONITOR.
[2018-11-06] VITALS: BP 116/55
--- NOTE | 2018-11-06 03:52 | NUR ---
RN MS NOTES AYLA MADE AWARE OF BLOOD CULTURE RESULTS ALSO MADE AWARE PATIENT IS CURRENTLY ON VANCO NO NEW ORDERS AT THIS TIME
[2018-11-06] MEDS: BLOOD SUGAR DIAGNOSTIC 1 EACH STRIP IN SCH ×3 (06:44→17:03)
--- NOTE | 2018-11-06 07:00 | NUR ---
RN MS CLOSING NOTES PATIENT IN BED AWAKE ALERT AND ORIENTED X4, RESPIRATIONS EVEN AND UNLABORED WITH EQUAL RISE AND FALL OF CHEST, DENIES ANY PAIN OR DISCOMFORT AT THIS TIME, PATIENT HAS RIGHT IJ HD CATHETER WITH DRESSING INTACT, IV SITE TO LEFT FA #22G INTACT AND PATENT, NO REDNESS, NO INFILTRATION , CALL LIGHT KEPT WITHIN REACH, SAFETY PRECAUTIONS IN PLACE, LOW BED AND LOCKED, BED ALARM IN PLACE, ALL NEEDS ATTENDED AT THIS TIME, WILL CONTINUE TO MONITOR AND ADDRESS NEEDS AND ENDORSE TO NEXT SHIFT, NO CHANGES THROUGHOUT SHIFT.
[2018-11-06 07:37] LABS: CALCIUM, SERUM 7.7 mg/dL (8.5-10.1); CARBON DIOXIDE 32 mmol/L (21-32); CHLORIDE 105 mmol/L (98-107); CREATININE 3.8 mg/dL (0.6-1.3); GLUCOSE 95 mg/dL (74-106); POTASSIUM 4.4 mmol/L (3.5-5.1); SODIUM SERUM 141 mmol/L (136-145); UREA NITROGEN, BLOOD 38 mg/dL (7-18)
--- NOTE | 2018-11-06 07:50 | NUR ---
MS RN RECEIVED ON BED, AWAKE,ALERT,ORIENTED X3,NOT IN ANY FORM OF DISTRESS, RESPIRATIONS EVEN AND UNLABORED,NO SOB NOTED, LUNGS ARE CLEAR,ABDOMEN SOFT,POSITIVE BOWEL SOUNDS,DENIES PAIN AT THIS TIME,ALL NEEDS ATTENDED.
[2018-11-06 08:00] VITALS: BP 109/50
--- NOTE | 2018-11-06 09:00 | NUR ---
MS FARIA BREAKFAST SERVED,DUE MEDS GIVEN, TOLERATED WELL.
[2018-11-06] MEDS ORDERED: ACET325T53 PO (09:52)
[2018-11-06] MEDS ORDERED: METF-440 PO (09:52)
[2018-11-06] MEDS ORDERED: Nepro PO (09:52)
[2018-11-06] MEDS ORDERED: LACT1CAP72 PO (09:52)
--- NOTE | 2018-11-06 10:00 | NUR ---
MS RN WENT DOWN FOR BONE SURVEY.
[2018-11-06] MEDS: LACTOBACILLUS RHAMNOSUS GG 1 EACH CAP.SPRINK PO SCH ×2 (13:03→17:03)
[2018-11-06] MEDS ORDERED: CEFTRIAXONE 1 G in IV D5W 50 ML IV SCH (15:00)
[2018-11-06 16:00] VITALS: BP 116/56
--- NOTE | 2018-11-06 17:30 | NUR ---
MS RN' BS- 105 NO COVERAGE GIVEN.
--- NOTE | 2018-11-06 18:00 | NUR ---
MS RN READY FOR DISCHARGE.
--- NOTE | 2018-11-06 18:10 | NUR ---
MS RN PATIENT REFUSED PICTURES AT HER BRUISES, DAUGHTER AT BEDSIDE.
--- NOTE | 2018-11-06 19:05 | NUR ---
ms rn patient went home accompanied by daughter, discharge instructions given,all needs attended.
== END 2018-11-06 19:00 | disposition home or self-care (01) | DRG 721 ==
LOC: ER 13:41 → MED 17:57
PROVIDERS: ADMIT Nurse Practitioner Acute Care; ATTEND Registered Nurse
PROC: 5A1D70Z Performance of Urinary Filtration, Intermittent, Less than 6 Hours Per Day (ICD-10-PCS; principal; 2018-11-01)
PROC: 05PYX3Z Removal of Infusion Device from Upper Vein, External Approach (ICD-10-PCS; 2018-11-02)
PROC: 30233R1 Transfusion of Nonautologous Platelets into Peripheral Vein, Percutaneous Approach (ICD-10-PCS; 2018-11-03)
PROC: B518YZA Fluoroscopy of Superior Vena Cava using Other Contrast, Guidance (ICD-10-PCS; 2018-11-03)
PROC: 02HV33Z Insertion of Infusion Device into Superior Vena Cava, Percutaneous Approach (ICD-10-PCS; 2018-11-03)
PROC: 5A1D70Z Performance of Urinary Filtration, Intermittent, Less than 6 Hours Per Day (ICD-10-PCS; 2018-11-04)
PROC: 5A1D70Z Performance of Urinary Filtration, Intermittent, Less than 6 Hours Per Day (ICD-10-PCS; 2018-11-05)
DX: T80.211A Bloodstream infection due to central venous catheter, initial encounter (principal); A41.01 Sepsis due to Methicillin susceptible Staphylococcus aureus; I13.2 Hypertensive heart and chronic kidney disease with heart failure and with stage 5 chronic kidney disease, or end stage renal disease; D61.818 Other pancytopenia; E11.22 Type 2 diabetes mellitus with diabetic chronic kidney disease; N18.6 End stage renal disease; D47.2 Monoclonal gammopathy; D69.59 Other secondary thrombocytopenia; E44.1 Mild protein-calorie malnutrition; E87.5 Hyperkalemia; L03.313 Cellulitis of chest wall; T82.41XA Breakdown (mechanical) of vascular dialysis catheter, initial encounter; Y71.2 Prosthetic and other implants, materials and accessory cardiovascular devices associated with adverse incidents; C90.00 Multiple myeloma not having achieved remission; Y84.8 Other medical procedures as the cause of abnormal reaction of the patient, or of later complication, without mention of misadventure at the time of the procedure; D63.8 Anemia in other chronic diseases classified elsewhere; Z87.891 Personal history of nicotine dependence; Y92.129 Unspecified place in nursing home as the place of occurrence of the external cause; Z99.2 Dependence on renal dialysis; Z90.710 Acquired absence of both cervix and uterus; I50.31 Acute diastolic (congestive) heart failure; I77.6 Arteritis, unspecified; E66.9 Obesity, unspecified; Z68.30 Body mass index [BMI] 30.0-30.9, adult; E83.9 Disorder of mineral metabolism, unspecified; D73.1 Hypersplenism; K74.60 Unspecified cirrhosis of liver; L30.4 Erythema intertrigo; R78.89 Finding of other specified substances, not normally found in blood; Z79.84 Long term (current) use of oral hypoglycemic drugs
CPT/HCPCS: 36415; 71045-TC; 76700-TC; 77075-TC; 80048-TC; 80061-TC; 80076-TC; 80202-TC; 81000-TC; 82232; 82728-TC; 82784; 82962-TC; 83540-TC; 83605-TC; 83735-TC; 83880; 84100-TC; 84155; 84165; 84443-TC; 85025-TC; 85610-TC; 85730-TC; 86334; 86850-TC; 87040-TC; 87070-TC; 87081-TC; 87086-TC; 90935-TC; 93971-TC; A4216; A6402; C1757; C1769; G0378; J0696; J1100; J1644; J1815; J2185; J2250; J2370; J2405; J2997; J3370; J3490; J7050; J7060; P9016-BL; P9034-BL; Q9966

== ENCOUNTER 2019-02-01 18:05 | Inpatient (IN) | payer OTHER ==
[~2019-02-01] VITALS: Ht 160 cm; Wt 77.6 kg
[~2019-02-01 18:05] MED LIST changes: +ACET325T53 PO; -ACYC5CRE2 TP; -GABA-534 PO; -INSU100V27 SQ; +LACT1CAP72 PO; +METF-440 PO; +Nepro PO; -VALA500T PO
--- NOTE | 2019-02-01 18:11 | NUR ---
DR CIFUENTES AT BEDSIDE
--- NOTE | 2019-02-01 18:16 | NUR ---
BIB FAMILY FROM [facility]IAL[facility]IS C[facility] FOR BLEEDING DIALYSIS CATHETER AT R CHEST AREA. DIALYSIS CATHETER NOT BLEEDING UPON ARRIVAL OF PT. CATHETER DRESSING DONE AT DIALYSIS CENTER. TO ER BED 11, HOOKED TO MONITOR, CHANGED TO GOWN, PROVIDED W WARM BLANKET, AWAITING MD BARRON.
[2019-02-01 18:30] LABS: BASOPHILS # (AUTO) 0.1 /CMM (0.0-0.2); BASOPHILS % (AUTO) 1.5 % (0.0-2.0); EOSINOPHILS % (AUTO) 2.3 % (0.0-6.0); HEMATOCRIT 41 % (33-45); HEMOGLOBIN 13.3 g/dL (11.5-14.8); LYMPHOCYTES # (AUTO) 1.1 /CMM (0.8-4.8); LYMPHOCYTES % (AUTO) 15.4 % (20.0-44.0); MEAN CORPUSCULAR HGB CONC 32 g/dl (31.0-36.0); MEAN CORPUSCULAR VOLUME 98 fL (82-100); MONOCYTES # (AUTO) 0.5 /CMM (0.1-1.30); MONOCYTES % (AUTO) 6.6 % (2.0-12.0); NEUTROPHILS # (AUTO) 5.1 /CMM (1.8-8.9); NEUTROPHILS % (AUTO) 74.2 % (43.0-81.0); RED BLOOD CELL COUNT(AUTO) 4.22 MIL/uL (4.0-5.2); WHITE BLOOD COUNT (AUTO) 6.9 K/uL (4.3-11.0)
--- NOTE | 2019-02-01 18:34 | NUR ---
UNABLE TO OBTAIN MED LIST AT THIS TIME, PER SON SOMEONE WILL IT FROM HOME
[2019-02-01 18:42] LABS: PLATELET COUNT (AUTO) 39 /CMM (150-450)
[2019-02-01 18:44] LABS: CALCIUM, SERUM 7.9 mg/dL (8.5-10.1); CARBON DIOXIDE 22 mmol/L (21-32); CHLORIDE 107 mmol/L (98-107); CREATININE 5.2 mg/dL (0.6-1.3); GLUCOSE 168 mg/dL (74-106); POTASSIUM 3.7 mmol/L (3.5-5.1); SODIUM SERUM 141 mmol/L (136-145); UREA NITROGEN, BLOOD 58 mg/dL (7-18)
[2019-02-01] MEDS ORDERED: CALC667C6 PO (18:52)
--- NOTE | 2019-02-01 19:02 | NUR ---
CALLED [facility] NEPHROLOGY HUSKER OPERATOR WAS PAGED.
--- NOTE | 2019-02-01 19:22 | NUR ---
SUNDEEP REPORT FROM BIENVENIDO TABARES FOR CARLOS. AWAITING ROOM FOR PT ADMISSION.
--- NOTE | 2019-02-01 19:25 | NUR ---
REPORT GIVEN TO KAT FARIA FOR CARLOS
--- NOTE | 2019-02-01 20:33 | NUR ---
UPDATED BED 115-1 TELE
[2019-02-01 21:13] LABS: EOSINOPHILS % (MANUAL) 1 % (0-4); LYMPHOCYTES % (MANUAL) 20 % (16-48); MONOCYTES % (MANUAL) 3 % (0-11.0); NEUTROPHILS % (MANUAL) 76 (42-76)
--- NOTE | 2019-02-01 21:21 | NUR ---
CALLED UNIT TO GIVE REPORT HOWEVER NURSE IS WITH A PT. WILL CALL BACK AGAIN FOR REPORT.
--- NOTE | 2019-02-01 21:41 | NUR ---
REPORT GIVEN TO BIENVENIDO RODRIGUEZ. PT GOING TO 115-1
[2019-02-01 21:48] VITALS: BP 143/68
--- NOTE | 2019-02-01 22:00 | NUR ---
WATER MECHANIC NOTES RECEIVED PT FROM ED VIA STRETCHER. SON AT BEDSIDE. PT A & OX3, MACEDONIAN SPEAKING. PT PLACED ON TELE MONITOR, HR 82. PT UP TO WITH BATHROOM WITH ASSISTANCE BRP. PT HAS BRUISES OVER HER BODY, PICS WERE TAKEN. PT HAS A RIGHT CW DIALYSES CATH, PT REPORTED THAT HER CATH WAS BLEEDING, CATH COVERED WITH GAUZE DRESSING, DRY AND INTACT. L AC #20 S/L.PLAN OF CARE DISCUSSED WITH PT. PT ORIENTED TO ROOM. ALL NEEDS ANTICIPATED AND MET. ALL SAFETY PRECAUTIONS TAKEN. BED IN LOW LOCKED POSITION, CALL LIGHT WITH IN REACH. BED ALARM ON. WILL CONT TO MONITOR.
[2019-02-01 23:56] VITALS: BP 125/66
[2019-02-02] VITALS: BP 125/66
[2019-02-02 00:15] VITALS: BP 130/64
[2019-02-02 01:15] VITALS: BP 160/72
[2019-02-02] MEDS ORDERED: ACETAMINOPHEN 325 MG TABLET PO PRN ×2 (03:00→14:00)
[2019-02-02 04:00] VITALS: BP_SYST 106; BP_SYST 125; BP_DIAS 45; BP_DIAS 66
--- NOTE | 2019-02-02 06:23 | NUR ---
RN CLOSING NOTES PT RECEIVE I UNIT OF PLATELETS ORDERED, PT TOLERATED TRANSFUSION WELL . TELEPHONE ORDERS RECEIVED FROM DR FARAH.ADMISSION COMPLETED. PT C/O FOR HEAD ACH 10/ OVERNIGHT. NO SIGNIFICANT CHANGE IN PTS CONDITION OVER SHIFT. PT REMAINED STABLE. WILL ENDORSE TO AM RN FOR CARLOS
[2019-02-02 06:29] LABS: BASOPHILS % (AUTO) 0.7 % (0.0-2.0); EOSINOPHILS % (AUTO) 0.6 % (0.0-6.0); HEMATOCRIT 39 % (33-45); HEMOGLOBIN 12.3 g/dL (11.5-14.8); LYMPHOCYTES # (AUTO) 0.2 /CMM (0.8-4.8); LYMPHOCYTES % (AUTO) 3.5 % (20.0-44.0); MEAN CORPUSCULAR HGB CONC 32 g/dl (31.0-36.0); MEAN CORPUSCULAR VOLUME 98 fL (82-100); MONOCYTES # (AUTO) 0.2 /CMM (0.1-1.30); MONOCYTES % (AUTO) 3.5 % (2.0-12.0); NEUTROPHILS # (AUTO) 4.4 /CMM (1.8-8.9); NEUTROPHILS % (AUTO) 91.7 % (43.0-81.0); RED BLOOD CELL COUNT(AUTO) 3.98 MIL/uL (4.0-5.2); WHITE BLOOD COUNT (AUTO) 4.8 K/uL (4.3-11.0)
[2019-02-02 06:55] LABS: CALCIUM, SERUM 8.1 mg/dL (8.5-10.1); CARBON DIOXIDE 18 mmol/L (21-32); CHLORIDE 107 mmol/L (98-107); CREATININE 4.9 mg/dL (0.6-1.3); GLUCOSE 130 mg/dL (74-106); PLATELET COUNT (AUTO) 29 /CMM (150-450); POTASSIUM 3.3 mmol/L (3.5-5.1); SODIUM SERUM 141 mmol/L (136-145); UREA NITROGEN, BLOOD 58 mg/dL (7-18)
--- NOTE | 2019-02-02 07:00 | NUR ---
ORAL PATHOLOGIST INITIAL NOTES PT IN BED, ASLEEP EASILY AROUSABLE. ON RA. NO S/SX OF DISTRESS NOTED. ON TELE SR WITH PAC'S. PT A/OX3. ABLE TO MAKE NEEDS KNOWN. NO C/O PAIN. IV ON LAC #20G SL. BED IN LOCKED/LOWEST POSITION. CALL LIGHT IN REACH. WILL CONT TO MONITOR.
--- NOTE | 2019-02-02 07:25 | NUR ---
WEB SIZER NOTES TALKED TO DR FARAH REGARDING PLATELETS. WILL COME TO SEE PATIENT.
[2019-02-02 07:53] LABS: LYMPHOCYTES % (MANUAL) 6 % (16-48); MONOCYTES % (MANUAL) 2 % (0-11.0); NEUTROPHILS % (MANUAL) 92 (42-76)
[2019-02-02 08:00] VITALS: BP 113/43
[2019-02-02] MEDS: CALCIUM ACETATE 667 MG TABLET PO SCH ×3 (08:01→17:07)
--- NOTE | 2019-02-02 10:00 | NUR ---
MS RN NOTES MED RECON: NOTIFIED DR JEFF AND DR FARAH
--- NOTE | 2019-02-02 10:48 | NUR ---
MS FARIA NOTES SPOKE TO RADIOLOGY SPECIALIST AT [facility] TO FAX HEPATITIS PANEL PER DR VAZQUEZ'S REQUEST Addendum: 02/02/19 at 1550 by DARRYL BEAVER RN FOLLOWED UP WITH NURSE AT [facility]; PER NURSE SYSTEM IS DOWN, WAITING FOR COMPUTERS TO FAX REQUESTED INFO. Addendum: 02/02/19 at 1729 by DARRYL BEAVER RN RECEIVED FAXED REPORT. SENT TO DR VAZQUEZ.
--- NOTE | 2019-02-02 11:08 | NUR ---
MS FARIA NOTES TEXTED [facility] [place] REGARDING CLAVICLE FRACTURE. Addendum: 02/02/19 at 1551 by DARRYL BEAVER RN DR DAVIS CALLED BACK; HE WILL COME TO SEE PATIENT. PT'S ARM PLACED IN SLING PER [place] ORDERS
[2019-02-02] MEDS ORDERED: ZOLPIDEM TARTRATE 5 MG TABLET PO PRN (14:00)
[2019-02-02] MEDS ORDERED: MAG HYDROX/AL HYDROX/SIMETH 30 ML UDC PO PRN (14:00)
[2019-02-02] MEDS ORDERED: Z GUARD REMEDY 2 OZ OINT TP PRN (14:00)
[2019-02-02] MEDS ORDERED: MAGNESIUM HYDROXIDE 30 ML UDC PO PRN (14:00)
[2019-02-02] MEDS ORDERED: ONDANSETRON HCL/PF 4 MG/2 ML VIAL IVP PRN (14:00)
[2019-02-02] MEDS: HYDROCODONE/APAP 5/325MG 1 EACH TABLET PO PRN (14:12)
[2019-02-02 16:00] VITALS: BP 121/61
--- NOTE | 2019-02-02 17:30 | NUR ---
MS RN NOTES NOTIFIED DR VAZQUEZ RE: POTASSIUM LEVEL. NO NEW ORDERS RECEIVED.
--- NOTE | 2019-02-02 18:29 | NUR ---
MS RN NOTES PT SITTING ON SIDE OF BED, EATING DINNER, TALKING WITH FAMILY AT BEDSIDE. PT WAITING FOR DIALYSIS TONIGHT. NO APPARENT SIGNS OF DISTRESS. WILL ENDORSE TO PM NURSE FOR CARLOS.
--- NOTE | 2019-02-02 22:48 | NUR ---
MS Notes: A/Ox 4 Spainish speaking on R/a Midline to RU C.W. intact. Dressing changed by Dialysis Nurse. Small amount of blood leaked out saturated 2 4x4. Wearing a shoulder sling on right side. S/l 20 ga lt a.c intact. Siderails up Call Light within reach. Denies of any distress.
--- NOTE | 2019-02-02 22:55 | NUR ---
MS Note: Dialysis Nurse states she removed 1 Litre of fluid and B/p 152 47
--- NOTE | 2019-02-03 06:16 | NUR ---
End of Shift Note: Sitting up Chair Denies of any distress Midline to Right Cw patent and intact. Call light within reach. Advised to please call nurse with the call light if she wants to return to bed.
--- NOTE | 2019-02-03 07:20 | NUR ---
RN MS OPENING NOTES RECEIVED REPORT FROM DEFENCE INTELLIGENCE ANALYST RN. PT IS ASLEEP IN BED. NO OBVIOUS SIGNS OF SOB OR PAIN NOTED AT PRESENT TIME. BED IS LOCKED AND IN LOWEST POSITION WITH CALL LIGHT IN REACH. PT HAS A WALKER AT BEDSIDE. PT AREA CLEAR OF CLUTTER WILL CONTINUE TO MONITOR PT.
[2019-02-03 07:34] LABS: BASOPHILS % (AUTO) 1.1 % (0.0-2.0); EOSINOPHILS % (AUTO) 4.3 % (0.0-6.0); HEMATOCRIT 38 % (33-45); HEMOGLOBIN 12.1 g/dL (11.5-14.8); LYMPHOCYTES # (AUTO) 0.7 /CMM (0.8-4.8); LYMPHOCYTES % (AUTO) 20.9 % (20.0-44.0); MEAN CORPUSCULAR HGB CONC 32 g/dl (31.0-36.0); MEAN CORPUSCULAR VOLUME 98 fL (82-100); MONOCYTES # (AUTO) 0.4 /CMM (0.1-1.30); MONOCYTES % (AUTO) 12.1 % (2.0-12.0); NEUTROPHILS # (AUTO) 2.2 /CMM (1.8-8.9); NEUTROPHILS % (AUTO) 61.6 % (43.0-81.0); RED BLOOD CELL COUNT(AUTO) 3.87 MIL/uL (4.0-5.2); WHITE BLOOD COUNT (AUTO) 3.5 K/uL (4.3-11.0)
[2019-02-03 07:37] LABS: PLATELET COUNT (AUTO) 32 /CMM (150-450)
--- NOTE | 2019-02-03 07:40 | NUR ---
LAB CALLED WITH CRITICAL LOW PLATELET COUNT MD ALREADY AWARE. PLATELET COUNT IS WITHIN PARAMETERS SET FOR PT. PLT 32
[2019-02-03 07:42] LABS: CALCIUM, SERUM 8.1 mg/dL (8.5-10.1); CARBON DIOXIDE 22 mmol/L (21-32); CHLORIDE 107 mmol/L (98-107); GLUCOSE 92 mg/dL (74-106); MAGNESIUM 2.5 mg/dL (1.8-2.4); PHOSPHORUS 4.6 mg/dL (2.5-4.9); POTASSIUM 3.6 mmol/L (3.5-5.1); SODIUM SERUM 142 mmol/L (136-145); UREA NITROGEN, BLOOD 42 mg/dL (7-18)
[2019-02-03 07:45] LABS: IRON, SERUM 39 ug/dl (50-175); TOTAL IRON BINDING CAPACITY 191 ug/dl (250-450)
[2019-02-03 07:48] LABS: CHOLESTEROL 100 mg/dL (<200); FERRITIN 272 ng/mL (8-388); HDL CHOLESTEROL 41 mg/dL (40-60); LDL 54 mg/dL (0-99); TRIGLYCERIDES 80 mg/dL (30-150)
[2019-02-03 08:00] VITALS: BP 132/78
[2019-02-03] MEDS: CALCIUM ACETATE 667 MG TABLET PO SCH ×3 (08:00→17:55)
[2019-02-03 08:11] LABS: ALBUMIN 2.7 g/dL (3.4-5.0); TOTAL PROTEIN, SERUM 5.8 g/dL (6.4-8.2)
[2019-02-03 08:20] LABS: BAND % (MANUAL) 1 % (0.0-5.0); EOSINOPHILS % (MANUAL) 3 % (0-4); LYMPHOCYTES % (MANUAL) 16 % (16-48); MONOCYTES % (MANUAL) 8 % (0-11.0); NEUTROPHILS % (MANUAL) 70 (42-76); REACTIVE LYMPHOCYTES 2 % (0-0)
[2019-02-03 16:00] VITALS: BP 135/79
--- NOTE | 2019-02-03 18:41 | NUR ---
RN CLOSING NOTES PT HAS FAMILY AT BEDSIDE. PT IS A&O X4. PT DENIES ANY PAIN OR SOB AT PRESENT MOMENT. BED IS LOCKED AND IN LOWEST POSITION WITH CALL LIGHT IN REACH. PT HAS A MIDLINE R CW AND L 20 GAUGE SL. WILL ENDORSE CONTINUITY OF CARE TO RN WOMEN SERVICES RN.
--- NOTE | 2019-02-03 19:45 | NUR ---
MS RN NOTE: RECEIVED PT SITTING ON A CHAIR, FAMILY MEMBER AT BEDSIDE DURING THIS TIME. PT IS ALERT AND ORIENTED X3. SETSWANA SPEAKING. NO ACUTE DISTRESS NOTED. DENIES PAIN AND DISCOMFORT AT THIS TIME. ON ROOM AIR, SATURATING WELL. BREATHING EVEN AND UNLABORED WITH NORMAL RESPIRATIONS. IV ON LEFT ANTECUBITAL #20 INTACT AND PATENT, FLUSHING WELL. KEPT CLEAN, DRY AND COMFORTABLE. SAFETY AND FALL PRECAUTIONS OBSERVED AND MAINTAINED. WILL CONTINUE TO MONITOR PT.
[2019-02-03 20:00] VITALS: BP 122/64
[2019-02-03 20:49] VITALS: BP 122/64
[2019-02-04 04:00] VITALS: BP 130/80
[2019-02-04 04:29] VITALS: BP 130/80
--- NOTE | 2019-02-04 06:38 | NUR ---
MS RN NOTE: NO CHANGES NOTED THROUGHOUT THE SHIFT. NO APPARENT DISTRESS NOTED. DENIES PAIN AND DISCOMFORT AT THIS TIME. ON ROOM AIR, NO SOB NOTED. PT AMBULATED TO THE BATHROOM WITH THE USE OF WALKER. IV ON LEFT AC #20 INTACT AND PATENT, FLUSHING WELL. NO SIGNS/SYMPTOMS OF INFILTRATION NOTED. CALL LIGHT PLACED WITHIN REACH. KEPT CLEAN, DRY AND COMFORTABLE. SAFETY AND FALL PRECAUTIONS OBSERVED AND MAINTAINED. WILL ENDORSE TO DAY SHIFT RN FOR CONTINUITY OF CARE.
--- NOTE | 2019-02-04 07:00 | NUR ---
MS RN NOTES RECEIVED PT ON CHAIR IN ROOM, FAMILY MEMBER AT BEDSIDE. PT'S ARM IN SLING IS SWOLLEN NON PITTING WITH REDNESS/BRUISING NOTED. PT C/O PAIN 5 IN ARM. WILL NOTIFY MD. PT A/OX3. PT STATING IN [place] THAT SHE NEEDS TO GO TO [place] ON MONDAY, TO ASK THE DOCTOR IF SHE CAN BE RELEASED. PT O2 SAT WNL ON ROOM AIR. WALKER AT BEDSIDE. CALL LIGHT IN REACH. WILL CONT TO MONITOR.
[2019-02-04 07:46] LABS: BASOPHILS % (AUTO) 0.8 % (0.0-2.0); EOSINOPHILS % (AUTO) 2.5 % (0.0-6.0); HEMATOCRIT 41 % (33-45); HEMOGLOBIN 13.2 g/dL (11.5-14.8); LYMPHOCYTES % (AUTO) 18.2 % (20.0-44.0); MEAN CORPUSCULAR HGB CONC 32 g/dl (31.0-36.0); MEAN CORPUSCULAR VOLUME 96 fL (82-100); MONOCYTES # (AUTO) 0.5 /CMM (0.1-1.30); MONOCYTES % (AUTO) 8.9 % (2.0-12.0); NEUTROPHILS # (AUTO) 3.8 /CMM (1.8-8.9); NEUTROPHILS % (AUTO) 69.6 % (43.0-81.0); RED BLOOD CELL COUNT(AUTO) 4.27 MIL/uL (4.0-5.2); WHITE BLOOD COUNT (AUTO) 5.4 K/uL (4.3-11.0)
[2019-02-04] MEDS: HYDROCODONE/APAP 5/325MG 1 EACH TABLET PO PRN ×3 (07:48→21:58)
[2019-02-04] MEDS: CALCIUM ACETATE 667 MG TABLET PO SCH ×3 (07:49→18:28)
[2019-02-04 07:57] LABS: CALCIUM, SERUM 8.5 mg/dL (8.5-10.1); CARBON DIOXIDE 22 mmol/L (21-32); CHLORIDE 107 mmol/L (98-107); CREATININE 4.9 mg/dL (0.6-1.3); GLUCOSE 102 mg/dL (74-106); PLATELET COUNT (AUTO) 42 /CMM (150-450); POTASSIUM 4.2 mmol/L (3.5-5.1); SODIUM SERUM 142 mmol/L (136-145); UREA NITROGEN, BLOOD 54 mg/dL (7-18)
--- NOTE | 2019-02-04 07:58 | NUR ---
MS RN NOTES CRITICAL LAB CALLED IN FOR PLATELETS 42.
[2019-02-04 08:00] VITALS: BP 123/77
[2019-02-04 08:13] LABS: EOSINOPHILS % (MANUAL) 1 % (0-4); LYMPHOCYTES % (MANUAL) 20 % (16-48); MONOCYTES % (MANUAL) 7 % (0-11.0); NEUTROPHILS % (MANUAL) 72 (42-76)
[2019-02-04] MEDS ORDERED: ALTEPLASE CATHFLO 2 MG/VIAL XX ONE (10:00)
--- NOTE | 2019-02-04 11:49 | NUR ---
MS FARIA NOTES PT POSITIVE FOR DVT REPORTED BY US TECH. WILL NOTIFY . Addendum: 02/04/19 at 1154 by DARRYL BEAVER RN NOTIFIED DR DEAL
--- NOTE | 2019-02-04 12:00 | NUR ---
MS RN NOTES NOTIFIED LAB THAT DR JEFF WANTED PATHOLOGY/MAN DIFFERENTIAL REPORT ON PERIPHERAL BLOOD SMEAR
[2019-02-04 16:00] VITALS: BP 145/69
--- NOTE | 2019-02-04 18:48 | NUR ---
MS RN END OF SHIFT NOTES PT RESTING IN BED, CONCERNED WITH FLYING TO [place] ON MONDAY. AWARE. LEFT MESSAGE WITH DR DAVIS FOR ORTHO CONSULT. DR MORELAND AWARE OF DVT; NO NEW ORDERS AT THIS TIME. PT'S ARM IN SLING. BED IN LOCKED/LOWEST POSITION. CALL LIGHT IN REACH. WILL ENDORSE TO PM NURSE FOR CARLOS.
--- NOTE | 2019-02-04 19:25 | NUR ---
MS RN NOTES, RECEIVED PATIENT ON BED, AWAKE A/O X4 ABLE TO VERBALIZED NEEDS AND CONCERNS, WITH OPTIMAL O2 SAT LEVEL ON ROOM AIR, RIGHT ARM WITH SLING IN PLACED, SWOLLEN NON PITTING WITH REDNESS/BRUISING NOTED, POSITIVE FOR DVT, FHARAMANDIAN AWARE AND NO NEW ORDERS FROM HIM PER PRIOR NURSE, NO C/O PAIN AT THIS TIME, AMBULATORY BRP PRIVILEGES WITH WALKER AND ASSISTANCE, CALL LIGHT IN REACH, BED LOCKED AND IN LOWEST POSITION, WILL CONTINUE TO MONITOR CLOSELY.
[2019-02-04 20:00] VITALS: BP 140/68
[2019-02-05 04:00] VITALS: BP 119/67
--- NOTE | 2019-02-05 06:50 | NUR ---
MS RN NOTES, PATIENT IN BED, SLEEPING AT THIS TIME, WITH OPTIMAL O2 SAT LEVEL ON ROOM AIR, BREATHING EVEN AND UNLABORED, NO S/S OF SOB/ACUTE DISTRESS NOTED AT THIS TIME, NO C/O PAIN AT THIS TIME, NO SIGNIFICANT CHANGE IN CONDITION DURING THE NIGHT, CALL LIGHT IN REACH, BED LOCKED AND IN LOWEST POSITION, WILL ENDORSE CONTINUITY OF CARE TO ONCOMING NURSE.
--- NOTE | 2019-02-05 07:00 | NUR ---
MS/RN INITIAL ENTRY RECEIVED PATIENT SITTING IN CHAIR AT THIS TIME. NO S/S OF ACUTE DISTRESS NOTED. RESPIRATION EVEN AND UNLABORED. NO SHORTNESS OF BREATH NOTED. PATIENT ALERT AND ORIENTED X3. FAROESE SPEAKING. DENIES ANY PAIN OR DISCOMFORT AT THIS TIME. SAFETY MEASURES MAINTAINED. CALL LIGHT WITHIN EASY REACH. WILL CONTINUE TO MONITOR THE PATIENT PER PLAN OF CARE.
[2019-02-05 07:05] LABS: EOSINOPHILS % (AUTO) 3.1 % (0.0-6.0); HEMATOCRIT 38 % (33-45); HEMOGLOBIN 12.1 g/dL (11.5-14.8); LYMPHOCYTES # (AUTO) 0.8 /CMM (0.8-4.8); MEAN CORPUSCULAR HGB CONC 32 g/dl (31.0-36.0); MEAN CORPUSCULAR VOLUME 97 fL (82-100); MONOCYTES # (AUTO) 0.4 /CMM (0.1-1.30); MONOCYTES % (AUTO) 9.9 % (2.0-12.0); NEUTROPHILS # (AUTO) 2.7 /CMM (1.8-8.9); RED BLOOD CELL COUNT(AUTO) 3.86 MIL/uL (4.0-5.2); WHITE BLOOD COUNT (AUTO) 4.2 K/uL (4.3-11.0)
[2019-02-05 07:09] LABS: PLATELET COUNT (AUTO) 48 /CMM (150-450)
[2019-02-05 07:14] LABS: CALCIUM, SERUM 8.4 mg/dL (8.5-10.1); CARBON DIOXIDE 23 mmol/L (21-32); CHLORIDE 108 mmol/L (98-107); CREATININE 5.3 mg/dL (0.6-1.3); GLUCOSE 97 mg/dL (74-106); POTASSIUM 4.3 mmol/L (3.5-5.1); SODIUM SERUM 142 mmol/L (136-145); UREA NITROGEN, BLOOD 64 mg/dL (7-18)
[2019-02-05 07:49] LABS: BAND % (MANUAL) 2 % (0.0-5.0); EOSINOPHILS % (MANUAL) 4 % (0-4); LYMPHOCYTES % (MANUAL) 21 % (16-48); MONOCYTES % (MANUAL) 11 % (0-11.0); NEUTROPHILS % (MANUAL) 62 (42-76)
[2019-02-05 08:00] VITALS: BP_SYST 127; BP_DIAS 55; BP_DIAS 57
--- NOTE | 2019-02-05 08:10 | NUR ---
MS/RN PATIENT SEEN AND EXAMINED BY DR HOLLOWAY WITH NEW ORDER TO TO HAVE HEMATOLOGY CONSULT WITH DR MEDRANO. PER DOCTOR HE WILL NOTIFY DR MEDRANO
[2019-02-05] MEDS: CALCIUM ACETATE 667 MG TABLET PO SCH ×3 (08:49→17:01)
--- NOTE | 2019-02-05 10:00 | NUR ---
MS/RN PATIENT SEEN AND EXAMINED BY CYRIL VALDIVIA WITH NON NEW ORDER. CONTINUE TO MONITOR PATIENT.
[2019-02-05 12:00] VITALS: BP_SYST 127; BP_SYST 147; BP_DIAS 55; BP_DIAS 68
--- NOTE | 2019-02-05 17:20 | NUR ---
MS RN NOTES PT REFUSED IV; STATES, "NO, ME DUELE".
--- NOTE | 2019-02-05 18:30 | NUR ---
MS RN END OF SHIFT NOTES PT SITTING ON CHAIR, DOING A CROSSWORD PUZZLE. PT REMOVED RIGHT ARM SLING, C/O PAIN AROUND SHOULDER/NECK CAUSED BY SLING. PT REFUSED NEW IV PLACEMENT AFTER IV WAS INFILTRATED. PT UNDERSTANDS POC. AWAITING HEME CONSULT. NO S/SX OF DISTRESS NOTED AT THIS TIME. MONITORED CLOSELY DURING SHIFT. WILL ENDORSE TO PM NURSE FOR CARLOS.
[2019-02-05 20:00] VITALS: BP 138/66
[2019-02-05] MEDS: FOLIC ACID 1 MG TABLET PO SCH (23:38)
[2019-02-06] MEDS: HYDROCODONE/APAP 5/325MG 1 EACH TABLET PO PRN ×2 (02:41→17:22)
[2019-02-06 04:00] VITALS: BP 108/64
--- NOTE | 2019-02-06 06:37 | NUR ---
RN NOTES, PATIENT AWAKE AT THIS TIME, BREATHING EVEN AND UNLABORED, NO SOB/ACUTE DISTRESS NOTED, ENDORSE LAST NIGHT WITH NO IV ACCESS, PATIENT REFUSED TO START ANOTHER IV, HE STATED SHE IS LEAVING TODAY ANYWAY, ASSESSED BY DR MEDRANO LAST NIGHT AND SHES REQUESTING MEDICAL RECORD FROM [facility] TO CHECK THE RESULTS FOR BONE MARROW BIOPSY. WILL ENDORSED TO ONCOMING NURSE FOR XONTINUITY OF CARE, CALL LIGHT W/I REACH, ALL SAFETY MEASURES IN PLACED.
[2019-02-06 07:00] VITALS: BP 126/65
[2019-02-06 08:00] VITALS: BP 126/65
[2019-02-06] MEDS: FOLIC ACID 1 MG TABLET PO SCH (08:55)
[2019-02-06] MEDS: CALCIUM ACETATE 667 MG TABLET PO SCH ×3 (08:55→17:22)
[2019-02-06] MEDS ORDERED: FERROUS SULFATE (325 MG) 325 MG/TAB TABLET PO SCH (09:00)
--- NOTE | 2019-02-06 10:09 | NUR ---
MS RN OPENING NOTES RECEIVED PATIENT LYING IN BED AWAKE. NO SOB OR S/S OF DISTRESS. PATIENT ALERT AND ORIENTED X3. MAURITANIAN SPEAKING. DENIES ANY PAIN OR DISCOMFORT AT THIS TIME. HD COMPLETED YESTERDAY. POSSIBLE D/C TODAY. SAFETY MEASURES IN PLACE. BED IN LOW LOCKED POSITION, CALL LIGHT WITHIN EASY REACH. WILL CONTINUE TO MONITOR.
[2019-02-06 16:00] VITALS: BP 144/63
--- NOTE | 2019-02-06 20:00 | NUR ---
RN NOTES-OPENING RECEIVED PATIENT AWAKE ON BED, GRANDSON AT BEDSIDE..A/OX4 MACEDONIAN SPEAKING...GRANDSON AT BEDSIDE.NO IV ACCESS -PER DAYSHIFT MD IS AWARE. HD CATH IN PLACE...DENIES PAIN, NO SOB PER DAYSHIFT NURSE PATIENT IS REQUESTING MEDICAL CLEARANCE FROM THE DOCTOR TO FLY TO [facility]... CHARGE NURSE SPOKE TO THE PATIENT WELL TO HER GRANDSON ABOUT IT ..PT'S GRANDSON IS NOT AWARE WHY THE PATIENT IS ASKING MEDICAL CLEARANCE FROM THE DOCTOR EVEN HE PATIENT CANNOT EXPLAINED IT.. PATIENT JUST STATED" THAT SOMEBODY TOLD IT TO HER"... EXPLAINED TO PATIENT GRANDSON THAT IF SHE NEEDS IT THEY MIGHT NEED TO COME BACK TOMORROW SO THE DOCTOR WILL DO THE LETTER SO THEY CAN TALK TO THE DOCTOR BUT WERE GOING TO CALL THE MILK PICKUP DRIVER DOCTOR ABOUT IT.
[2019-02-06 20:20] VITALS: BP 145/71
--- NOTE | 2019-02-06 20:27 | NUR ---
RN NOTES CALLED DR. HOLLOWAY IF HE CAN LOG OUT IN THE SYSTEM BECAUSE WE CAN'T DO THE DISCHARGE PAPER OF THE PATIENT.. WAITING FOR HIM TO CALL US BACK
--- NOTE | 2019-02-06 20:30 | NUR ---
RN NOTES SPOKE TO DR. FARAH REGARDING PATIENT'S REQUEST TO HAVE MEDICAL CLEARANCE FROM THE DOCTOR TO FLY TO [place].. DR. FARAH DOESN'T KINOW ANYTHING ABOUT THE PATIENT AND IT WAS DR. HOLLOWAY WHO DISCHARGE THE PATIENT. TALKED TO THE PATIENT GRANDSON IF THEY WANT A MEDICAL CLEARANCE FROM THE DOCTOR TO FLY TO [place] THEY NEED [employer] COMEBACK TOMORROW SO THE DOCTOR WILL DO THE LETTER
--- NOTE | 2019-02-06 20:32 | NUR ---
MS RN CLOSING NOTES PATIENT IN BED AWAKE. NO SOB OR S/S OF DISTRESS. PATIENT ALERT AND ORIENTED X3. SAMI SPEAKING. DENIES ANY PAIN OR DISCOMFORT AT THIS TIME. HD COMPLETED YESTERDAY. D/C ORDER ENDORSED TO BETTING AGENCY MANAGER RN. SAFETY MEASURES IN PLACE. BED IN LOW LOCKED POSITION, CALL LIGHT WITHIN EASY REACH. CARE ENDORSED TO BETTING AGENCY MANAGER RN..
--- NOTE | 2019-02-06 20:40 | NUR ---
RN NOTES PAGED DR. HOLLOWAY AGAIN IF HE CAN LOG OUT SO WE CAN DO THE PATIENTS DISCHARGE PAPERS.. WAITING FOR HIM TO CALL US BACK
--- NOTE | 2019-02-06 20:40 | NUR ---
RN NOTES GAVE AN UPDATE TO THE PATIENT'S FAMILY REGARDING THE DISCHARGE PAPER AND WERE TRYING TO GET HOLD OF THE DOCTOR AND FAMILY UNDERSTAND THE SITUATION
--- NOTE | 2019-02-06 20:50 | NUR ---
RN NOTES CALLED DR. FARAH AND INFORMED HIM THAT WE'RE TRYING TO GET HOLD OF DR. HOLLOWAY TO LOG OUT BECAUSE WE CAN'T DO THE DISCHARGE PAPER OF THE PATIENTS. DR. FARAH WILL TRY TO GET HOLD OF DR. HOLLOWAY
--- NOTE | 2019-02-06 21:35 | NUR ---
RN NOTES charge nurse called nursing clothing supervisor and informed her the situation and gave us a go signal to call Dr. Oneal on his cellphone... called Jm Nova and left a message.. waiting for him to call back
--- NOTE | 2019-02-06 21:58 | NUR ---
RN NOTES COMPUTER STILL LOCKED UNDER DR. HOLLOWAY; TRIED TO CALL IT FOR HELP; FAMILY HAS BEEN WAITING; GIVEN TICKET #[id number]; IT TRANSFERRED TO FUEL EFFICIENT AIRCRAFT DESIGNER LISA FOR AUTHORIZATION. 2200 COMPUTER NOW UNLOCKED. PRIMARY RN, JOSY MADE AWARE. FAMILY UPDATED
[2019-02-06 22:00] VITALS: BP 145/71
--- NOTE | 2019-02-06 22:17 | NUR ---
RN NOTES DISCHARGE PATIENT AT THIS TIME, PT. N STABLE CONDITION, V/S STABLE, DENIES PAIN, NO SOB, DISCHARGE INSTRUCTION WAS GIVEN AND PATIENT UNDERSTOOD WELL HER SON. PATIENT LEFT WITH HER SON. SPECIAL SERVICES DIRECTOR WHEEL HER DOWN. PATIENT LEFT VIA PRIVATE CAR
== END 2019-02-06 22:19 | disposition home or self-care (01) | DRG 206 ==
LOC: ER 18:05 → TELE1 20:57 → MEDSG1 02-02 09:51
PROVIDERS: ADMIT Internal Medicine Nephrology; ATTEND Internal Medicine Nephrology
PROC: 30233R1 Transfusion of Nonautologous Platelets into Peripheral Vein, Percutaneous Approach (ICD-10-PCS; principal; 2019-02-02)
PROC: 5A1D70Z Performance of Urinary Filtration, Intermittent, Less than 6 Hours Per Day (ICD-10-PCS; principal; 2019-02-02)
DX: T82.838A Hemorrhage due to vascular prosthetic devices, implants and grafts, initial encounter (principal); I13.2 Hypertensive heart and chronic kidney disease with heart failure and with stage 5 chronic kidney disease, or end stage renal disease; E44.0 Moderate protein-calorie malnutrition; D69.6 Thrombocytopenia, unspecified; E11.22 Type 2 diabetes mellitus with diabetic chronic kidney disease; I82.621 Acute embolism and thrombosis of deep veins of right upper extremity; N18.6 End stage renal disease; D47.2 Monoclonal gammopathy; M80.011A Age-related osteoporosis with current pathological fracture, right shoulder, initial encounter for fracture; Z99.2 Dependence on renal dialysis; I50.32 Chronic diastolic (congestive) heart failure; E87.6 Hypokalemia; Z98.890 Other specified postprocedural states; Z90.49 Acquired absence of other specified parts of digestive tract; Z91.19 Patient's noncompliance with other medical treatment and regimen; Z90.710 Acquired absence of both cervix and uterus; Z87.891 Personal history of nicotine dependence; Y84.1 Kidney dialysis as the cause of abnormal reaction of the patient, or of later complication, without mention of misadventure at the time of the procedure; Y92.009 Unspecified place in unspecified non-institutional (private) residence as the place of occurrence of the external cause; M85.80 Other specified disorders of bone density and structure, unspecified site; Q78.9 Osteochondrodysplasia, unspecified; Z85.79 Personal history of other malignant neoplasms of lymphoid, hematopoietic and related tissues; D64.9 Anemia, unspecified
CPT/HCPCS: 36415; 71045-TC; 80048-TC; 80061-TC; 82040-TC; 82306; 82728-TC; 83540-TC; 83735-TC; 84100-TC; 84155-TC; 84443-TC; 85025-TC; 85385-TC; 85610-TC; 85730-TC; 86850-TC; 87081-TC; 90935-TC; 93971-TC; A4565; G0378; J2997; J7050; P9016-BL; P9034-BL

== ENCOUNTER 2019-02-25 17:05 | Emergency (ER) ==
[~2019-02-25] VITALS: Ht 149.9 cm; Wt 75.3 kg
[~2019-02-25 17:05] MED LIST changes: -ACET325T53 PO; +CALC667C6 PO; -LACT1CAP72 PO; -METF-440 PO; -Nepro PO
--- NOTE | 2019-02-25 17:22 | NUR ---
BIB HD TECH, CAME IN DUE TO HD CATH BLEEDING FROM DIALYSIS CENTER, DENIES PAIN. NOT CURRENTLY BLEEDING. ACCESS AT RIGHT UPPER CHEST. SETSWA[place]-SPEAKING, FAMILY AT BEDSIDE. NO ACUTE DISTRESS NOTED. SKIN INTACT, READY FOR EVAL.
[2019-02-25 18:00] LABS: HEMOGLOBIN 10.3 g/dL (11.5-14.8); LYMPHOCYTES # (AUTO) 0.7 /CMM (0.8-4.8)
[2019-02-25 18:07] LABS: CALCIUM, SERUM 7.7 mg/dL (8.5-10.1); CARBON DIOXIDE 21 mmol/L (21-32); CHLORIDE 106 mmol/L (98-107); CREATININE 4.2 mg/dL (0.6-1.3); GLUCOSE 125 mg/dL (74-106); POTASSIUM 3.5 mmol/L (3.5-5.1); SODIUM SERUM 137 mmol/L (136-145); UREA NITROGEN, BLOOD 29 mg/dL (7-18)
[2019-02-25 18:09] LABS: BASOPHILS % (AUTO) 0.3 % (0.0-2.0); EOSINOPHILS % (AUTO) 2.4 % (0.0-6.0); HEMATOCRIT 31 % (33-45); LYMPHOCYTES % (AUTO) 11.8 % (20.0-44.0); MEAN CORPUSCULAR HGB CONC 34 g/dl (31.0-36.0); MEAN CORPUSCULAR VOLUME 92 fL (82-100); MONOCYTES # (AUTO) 0.3 /CMM (0.1-1.30); MONOCYTES % (AUTO) 5.6 % (2.0-12.0); NEUTROPHILS # (AUTO) 4.8 /CMM (1.8-8.9); NEUTROPHILS % (AUTO) 79.9 % (43.0-81.0); RED BLOOD CELL COUNT(AUTO) 3.31 MIL/uL (4.0-5.2)
[2019-02-25 18:12] LABS: PLATELET COUNT (AUTO) 44 /CMM (150-450)
--- NOTE | 2019-02-25 18:22 | NUR ---
CALLED NEDA KHAN FOR THIS PT, GAGAN PAGED.
--- NOTE | 2019-02-25 18:50 | NUR ---
Patient discharged to home in stable condition. Written and verbal after care instructions given. Patient verbalizes understanding of instruction.
[2019-02-25 19:40] VITALS: BP 134/72
[2019-02-25 20:10] LABS: BAND % (MANUAL) 2 % (0.0-5.0); EOSINOPHILS % (MANUAL) 3 % (0-4); LYMPHOCYTES % (MANUAL) 13 % (16-48); MONOCYTES % (MANUAL) 5 % (0-11.0); NEUTROPHILS % (MANUAL) 77 (42-76)
== END 2019-02-25 18:45 | disposition home or self-care (01) ==
LOC: ER 17:15
DX: D69.6 Thrombocytopenia, unspecified (principal); E11.22 Type 2 diabetes mellitus with diabetic chronic kidney disease; I13.2 Hypertensive heart and chronic kidney disease with heart failure and with stage 5 chronic kidney disease, or end stage renal disease; I50.9 Heart failure, unspecified; N18.6 End stage renal disease; R06.02 Shortness of breath; Z99.2 Dependence on renal dialysis; Z90.49 Acquired absence of other specified parts of digestive tract; Z90.710 Acquired absence of both cervix and uterus
CPT/HCPCS: 36415; 71045-TC; 80048-TC; 85025-TC; 85730-TC

== ENCOUNTER 2019-03-01 17:25 | Inpatient (IN) | payer OTHER ==
[~2019-03-01] VITALS: Ht 152.4 cm; Wt 79.4 kg
--- NOTE | 2019-03-01 17:50 | NUR ---
AAOx3, came from dialysis center c/o bleeding to right kylie cath site while dialysis in progress. Less than 30 minutes of dialysis out of 3 hours. Not actively bleeding at this time. Patient last dialyzed was Monday. RR is even and unlabored with nad noted. skin warm and dry. Awaiting md for eval.
[2019-03-01] MEDS ORDERED: FERR325T23 PO (18:07)
[2019-03-01] MEDS ORDERED: IPRATROPIUM NEB FS 0.5 MG/2.5 ML AMPUL.NEB NEB ONE (18:30)
[2019-03-01] MEDS ORDERED: ALBUTEROL FS 2.5 MG/3 ML VIAL.NEB CONTNEB ONE (18:30)
[2019-03-01 18:31] LABS: BASOPHILS # (AUTO) 0.1 /CMM (0.0-0.2); BASOPHILS % (AUTO) 0.7 % (0.0-2.0); EOSINOPHILS % (AUTO) 2.8 % (0.0-6.0); HEMATOCRIT 32 % (33-45); HEMOGLOBIN 10.6 g/dL (11.5-14.8); LYMPHOCYTES # (AUTO) 1.4 /CMM (0.8-4.8); LYMPHOCYTES % (AUTO) 15.1 % (20.0-44.0); MEAN CORPUSCULAR HGB CONC 33 g/dl (31.0-36.0); MEAN CORPUSCULAR VOLUME 94 fL (82-100); MONOCYTES # (AUTO) 0.5 /CMM (0.1-1.30); MONOCYTES % (AUTO) 5.5 % (2.0-12.0); NEUTROPHILS # (AUTO) 7.3 /CMM (1.8-8.9); NEUTROPHILS % (AUTO) 75.9 % (43.0-81.0); PLATELET COUNT (AUTO) 72 /CMM (150-450); WHITE BLOOD COUNT (AUTO) 9.6 K/uL (4.3-11.0)
[2019-03-01 18:44] LABS: CALCIUM, SERUM 8.1 mg/dL (8.5-10.1); CARBON DIOXIDE 22 mmol/L (21-32); CHLORIDE 108 mmol/L (98-107); CREATININE 4.8 mg/dL (0.6-1.3); GLUCOSE 108 mg/dL (74-106); SODIUM SERUM 138 mmol/L (136-145); UREA NITROGEN, BLOOD 42 mg/dL (7-18)
[2019-03-01] MEDS ORDERED: ALBUTEROL FS 2.5 MG/3 ML VIAL.NEB ONE (19:06)
[2019-03-01] MEDS ORDERED: IPRATROPIUM NEB FS 0.5 MG/2.5 ML AMPUL.NEB ONE (19:06)
--- NOTE | 2019-03-01 19:07 | NUR ---
REPORT RECEIVED FROM BIENVENIDO MILLIGAN FOR CARLOS.
[2019-03-01 19:31] LABS: POTASSIUM 6.2 mmol/L (3.5-5.1)
--- NOTE | 2019-03-01 19:36 | NUR ---
REPORT GIVEN TO ROBERTO FARIA FOR CARLOS
[2019-03-01 20:00] VITALS: BP 138/75
--- NOTE | 2019-03-01 20:00 | NUR ---
RECEIVE PT AT [employer] [employer] FROM [employer] PT ADMIT TO TELEMETRY SR 93 PT WITH GRANDDAUGHTER AA/OX3, RESPIRATIONS EVEN AND UNLABORED, STABLE AND NO S/S OF DISTRESS, PERMACATH INTACT WITH NO S/S OF BLEEDING NOTED. KEPT CLEAN AND COMFORTABLE, DRY. SAFETY MEASURES IN PLACE. WILL CONT TO [facility].
--- NOTE | 2019-03-01 20:01 | NUR ---
PT SIGNED CONSENT TO HEMODIALYSIS
--- NOTE | 2019-03-01 20:20 | NUR ---
[facility]LL [facility] AND RECEIVE NEW ORDERS FROM DR. FARAH HEMODIALYSIS TODAY, CONTINUE ALL HOME MEDICATIONS, BREATHING TREATMENT OF ATROVENT FS NEB 0.5 MG Q6HR PRN AND ALBUTEROL FS 2.5MG/0.5 ML Q6 PRN FOR SOB AND CONT PRESCRIPTION PRESCRIBED FROM HIS OFFICE AZITHROMYCIN Z-PACK USE DIRECTED READ BACK AND VERIFIED ORDERED NOTED AND CARRIED OUT.
--- NOTE | 2019-03-01 20:20 | NUR ---
PER DR. GAGAN ROTHMAN AZITHROMYCIN USE DIRECTED X 5 DAYS Addendum: 03/02/19 at 0233 by ROBERTO RICHARD RN ORDERED
[2019-03-01] MEDS ORDERED: IPRATROPIUM NEB FS 0.5 MG/2.5 ML AMPUL.NEB NEB PRN (20:30)
[2019-03-01] MEDS ORDERED: ALBUTEROL FS 2.5 MG/0.5 ML VIAL.NEB NEB PRN (20:30)
[2019-03-01 20:33] LABS: EOSINOPHILS % (MANUAL) 1 % (0-4); LYMPHOCYTES % (MANUAL) 17 % (16-48); MONOCYTES % (MANUAL) 1 % (0-11.0); NEUTROPHILS % (MANUAL) 81 (42-76)
[2019-03-01] MEDS ORDERED: MISCELLANEOUS MED 1 EA EA XX ONE ×2 (21:00)
[2019-03-01] MEDS ORDERED: AZITHROMYCIN 250 MG TABLET PO ONE ×2 (21:00)
--- NOTE | 2019-03-01 22:33 | NUR ---
PAGED AND SPOKE TO DR. FARAH PT C/O HEADACHE PER DR. FARAH ORDERED TYLENOL 325 MG 1 TAB PO Q6 PRN READ BACK AND VERFIED ORDERS NOTED AND CARRIED OUT
--- NOTE | 2019-03-01 22:48 | NUR ---
HEMODIALYSIS DONE PERMACATH INTACT WITH NO S/S OF BLEEDING NOTED
[2019-03-01] MEDS: ACETAMINOPHEN 325 MG TABLET PO PRN (23:13)
[2019-03-02] VITALS: BP 116/53
[2019-03-02 04:00] VITALS: BP 118/52
[2019-03-02 06:10] LABS: BASOPHILS % (AUTO) 0.8 % (0.0-2.0); EOSINOPHILS % (AUTO) 2.8 % (0.0-6.0); HEMATOCRIT 29 % (33-45); HEMOGLOBIN 9.6 g/dL (11.5-14.8); LYMPHOCYTES # (AUTO) 1.1 /CMM (0.8-4.8); MEAN CORPUSCULAR HGB CONC 34 g/dl (31.0-36.0); MEAN CORPUSCULAR VOLUME 93 fL (82-100); MONOCYTES # (AUTO) 0.4 /CMM (0.1-1.30); MONOCYTES % (AUTO) 6.3 % (2.0-12.0); NEUTROPHILS # (AUTO) 4.5 /CMM (1.8-8.9); NEUTROPHILS % (AUTO) 72.1 % (43.0-81.0); RED BLOOD CELL COUNT(AUTO) 3.07 MIL/uL (4.0-5.2); WHITE BLOOD COUNT (AUTO) 6.2 K/uL (4.3-11.0)
--- NOTE | 2019-03-02 06:19 | NUR ---
MS RN ASLEEP AND EASILY AWAKEN, RESPIRATION EVEN AND UNLABORED, PERMACATH NO S/S OF BLEEDING NOTED. S/P HD. KEPT CLEAN AND DRY AND COMFORTABLE. NEEDS ATTENDED AND ANTICIPATED, NURSING CARE RENDERED, STABLE AND NOT IN DISTRESS, OFFLOAD HEELS AND ELBOWS. SAFETY MEASURES AT ALL TIMES. ENDORSE TO THE NEXT SHIFT.
--- NOTE | 2019-03-02 06:20 | NUR ---
SR 94 IN THE TELE MONITOR
[2019-03-02 06:29] LABS: CALCIUM, SERUM 7.5 mg/dL (8.5-10.1); CARBON DIOXIDE 29 mmol/L (21-32); CHLORIDE 106 mmol/L (98-107); CREATININE 3.3 mg/dL (0.6-1.3); GLUCOSE 95 mg/dL (74-106); PHOSPHORUS 3.4 mg/dL (2.5-4.9); POTASSIUM 3.6 mmol/L (3.5-5.1); SODIUM SERUM 142 mmol/L (136-145); UREA NITROGEN, BLOOD 22 mg/dL (7-18)
--- NOTE | 2019-03-02 07:25 | NUR ---
HR ADMINISTRATIVE ASSISTANT OPENING NOTE RECEIVED PT IN BED, RESTING WITH EYES CLOSED AND EASILY AROUSABLE. PT IS ALERT AND ORIENTED X4, PRIMARILY VATICAN CITIZEN SPEAKING BUT ABLE TO COMMUNICATE BASIC NEEDS IN SLOVENIAN. DENIES CHEST PAIN, SOB, N/V, BREATHING IS EVEN AND UNLABORED ON ROOM AIR. PT IS ON RECREATION OFFICER WITH SINUS RHYTHM HR 90 AT THIS TIME. RIGHT UPPER CHEST WALL PERMACATH DRESSING IS CLEAN, DRY AND INTACT, WITHOUT SIGNS OF BLEEDING AT THIS TIME. LEFT AC #20G IV IS SALINE LOCKED WITHOUT REDNESS OR SWELLING. ALL NEEDS ATTENDED TO. BED IS LOCKED AND IN LOWEST POSITION, SIDE RAILS UP X2, BED ALARM ON, CALL LIGHT AND POSSESSIONS WITHIN REACH.
--- NOTE | 2019-03-02 07:33 | NUR ---
INSULATION BOARD BACK TENDER CRITICAL LAB [facility] REPORTED PER PROTOCOL TO , NO NEW ORDERS AT THIS TIME.
[2019-03-02 07:37] LABS: PLATELET COUNT (AUTO) 49 /CMM (150-450)
[2019-03-02 08:00] VITALS: BP 116/61
[2019-03-02] MEDS: FERROUS SULFATE (325 MG) 325 MG/TAB TABLET PO SCH ×2 (08:51→16:12)
[2019-03-02 09:21] LABS: EOSINOPHILS % (MANUAL) 2 % (0-4); LYMPHOCYTES % (MANUAL) 18 % (16-48); MONOCYTES % (MANUAL) 7 % (0-11.0); NEUTROPHILS % (MANUAL) 73 (42-76)
[2019-03-02] MEDS: FOLIC ACID 1 MG TABLET PO SCH (14:48)
[2019-03-02 16:00] VITALS: BP 132/62
--- NOTE | 2019-03-02 16:27 | NUR ---
MS BIENVENIDO CULP NOTE SPOKE WITH YUDI FROM BED CONTROL DEPARTMENT FROM [facility], PER YUDI MEDICAL RECORDS IS CLOSED UNTIL MONDAY BECAUSE OF THE HOLIDAY WEEKEND SO WE ARE UNABLE TO REQUEST BONE MARROW BIOPSY RESULTS AT THIS TIME. YUDI FORWARDED THE NURSE TO MEDICAL RECORD DEPARTMENT AND THERE WAS NO ANSWER.
--- NOTE | 2019-03-02 18:45 | NUR ---
MS RN CLOSING NOTE PT IN BED, RESTING WITH EYES CLOSED AND EASILY AROUSABLE. PT IS ALERT AND ORIENTED X4, PRIMARILY GHANAIAN SPEAKING BUT ABLE TO COMMUNICATE BASIC NEEDS IN ALBANIAN. DENIES CHEST PAIN, SOB, N/V, BREATHING IS EVEN AND UNLABORED ON ROOM AIR. RIGHT UPPER CHEST WALL PERMCATH DRESSING IS CLEAN, DRY AND INTACT, WITHOUT SIGNS OF BLEEDING FOR THE DURATION OF THE SHIFT. LEFT AC #20G IV IS SALINE LOCKED WITHOUT REDNESS OR SWELLING. ADLS PROVIDED. ALL NEEDS ATTENDED TO. BED IS LOCKED AND IN LOWEST POSITION, SIDE RAILS UP X2, BED ALARM ON, CALL LIGHT AND POSSESSIONS WITHIN REACH. WILL ENDORSE TO CHEMICAL TANK WORKER NURSE FOR CONTINUITY OF CARE.
--- NOTE | 2019-03-02 19:02 | NUR ---
MS RN OPENING NOTES Received patient in bed, alert, oriented x 3, family at bedside. Primarily bulgarian speaking but able to communicate basic needs in sinhala. Breathing even and unlabored, on room air. Not in any distress. RCW permacath- dressing clean, dry and intact- no signs bleeding noted. Patient stable as endorsed by the AM RN. SAfety measures in place. Will continue to monitor accordingly
[2019-03-02 20:00] VITALS: BP 125/61
[2019-03-02] MEDS ORDERED: AZITHROMYCIN 250 MG TABLET PO SCH (21:00)
--- NOTE | 2019-03-03 01:00 | NUR ---
MS RN NOTES ON BED SLEEPING,KEPT WARM AND COMFORTABLE.
--- NOTE | 2019-03-03 02:00 | NUR ---
RN NOTES- Patient Rounds Patient sleeping comfortably in bed. No distress noted
[2019-03-03 06:19] LABS: BASOPHILS % (AUTO) 0.8 % (0.0-2.0); EOSINOPHILS % (AUTO) 3.4 % (0.0-6.0); HEMATOCRIT 30 % (33-45); HEMOGLOBIN 9.7 g/dL (11.5-14.8); LYMPHOCYTES # (AUTO) 0.9 /CMM (0.8-4.8); LYMPHOCYTES % (AUTO) 17.6 % (20.0-44.0); MEAN CORPUSCULAR HGB CONC 33 g/dl (31.0-36.0); MEAN CORPUSCULAR VOLUME 93 fL (82-100); MONOCYTES # (AUTO) 0.3 /CMM (0.1-1.30); MONOCYTES % (AUTO) 6.5 % (2.0-12.0); NEUTROPHILS # (AUTO) 3.5 /CMM (1.8-8.9); NEUTROPHILS % (AUTO) 71.7 % (43.0-81.0); PLATELET COUNT (AUTO) 56 /CMM (150-450); RED BLOOD CELL COUNT(AUTO) 3.21 MIL/uL (4.0-5.2); WHITE BLOOD COUNT (AUTO) 4.9 K/uL (4.3-11.0)
[2019-03-03 06:34] LABS: CALCIUM, SERUM 7.8 mg/dL (8.5-10.1); CARBON DIOXIDE 27 mmol/L (21-32); CHLORIDE 106 mmol/L (98-107); CREATININE 4.1 mg/dL (0.6-1.3); GLUCOSE 99 mg/dL (74-106); PHOSPHORUS 3.6 mg/dL (2.5-4.9); POTASSIUM 3.4 mmol/L (3.5-5.1); SODIUM SERUM 141 mmol/L (136-145); UREA NITROGEN, BLOOD 27 mg/dL (7-18)
--- NOTE | 2019-03-03 06:52 | NUR ---
MS RN CLOSING NOTE Patient resting in bed. Not in any distress. No acute changes overnight. Patient remains stable. All needs attended and anticipated. Safety measures in place; call light within reach, bed in low, locked position. Will endorse CARLOS to oncoming RN.
--- NOTE | 2019-03-03 07:33 | NUR ---
MS RN OPENING NOTE RECEIVED PT IN BED, RESTING WITH EYES CLOSED AND EASILY AROUSABLE. PT IS ALERT AND ORIENTED X4, PRIMARILY KAZAKH SPEAKING BUT ABLE TO COMMUNICATE BASIC NEEDS IN TANZANIAN. DENIES CHEST PAIN, SOB, N/V, BREATHING IS EVEN AND UNLABORED ON ROOM AIR. RIGHT UPPER CHEST WALL PERMACATH DRESSING IS CLEAN, DRY AND INTACT, WITHOUT SIGNS OF BLEEDING AT THIS TIME. LEFT AC #20G IV IS SALINE LOCKED WITHOUT REDNESS OR SWELLING. ALL NEEDS ATTENDED TO. BED IS LOCKED AND IN LOWEST POSITION, SIDE RAILS UP X2, BED ALARM ON, CALL LIGHT AND POSSESSIONS WITHIN REACH.
[2019-03-03 08:00] VITALS: BP 114/89
[2019-03-03] MEDS: FERROUS SULFATE (325 MG) 325 MG/TAB TABLET PO SCH ×2 (09:27→16:33)
[2019-03-03] MEDS: FOLIC ACID 1 MG TABLET PO SCH (09:27)
[2019-03-03 09:38] LABS: EOSINOPHILS % (MANUAL) 4 % (0-4); LYMPHOCYTES % (MANUAL) 13 % (16-48); MONOCYTES % (MANUAL) 6 % (0-11.0); NEUTROPHILS % (MANUAL) 77 (42-76)
--- NOTE | 2019-03-03 12:00 | NUR ---
MS RN NOTE HD COMPLETED TODAY WITH 2L OUT. VS AND MENTAL STATUS AT BASELINE.
--- NOTE | 2019-03-03 14:22 | NUR ---
MS RN NOTE REQUESTED WALKER FROM [facility], AWAITING DELIVERY.
[2019-03-03 16:40] VITALS: BP 119/57
--- NOTE | 2019-03-03 17:21 | NUR ---
MS RN NOTE AT BEDSIDE FOR FOLLOW UP, RECOMMENDING IR CT GUIDED BIOPSY WITH MODERATE SEDATION OUTPATIENT SINCE PT DOES NOT WANT BEDSIDE BONE MARROW BIOPSY AND UNABLE TO OBTAIN OLIVE VIEW RECORDS DUE TO HOLIDAY WEEKEND.
--- NOTE | 2019-03-03 17:30 | NUR ---
MS RN NOTE WALKER TO TAKE HOME PLACED AT THE BEDSIDE
--- NOTE | 2019-03-03 18:25 | NUR ---
MS RN CLOSING NOTE PT IN BED, RESTING WITH EYES CLOSED AND EASILY AROUSABLE. PT IS ALERT AND ORIENTED X4, PRIMARILY ENGLISH SPEAKING BUT ABLE TO COMMUNICATE BASIC NEEDS IN LUXEMBOURGISH. DENIES CHEST PAIN, SOB, N/V, BREATHING IS EVEN AND UNLABORED ON ROOM AIR. RIGHT UPPER CHEST WALL PERMCATH DRESSING IS CLEAN, DRY AND INTACT, WITHOUT SIGNS OF BLEEDING FOR THE DURATION OF THE SHIFT. LEFT AC #20G IV IS SALINE LOCKED WITHOUT REDNESS OR SWELLING. ADLS PROVIDED. ALL NEEDS ATTENDED TO. BED IS LOCKED AND IN LOWEST POSITION, SIDE RAILS UP X2, BED ALARM ON, CALL LIGHT AND POSSESSIONS WITHIN REACH. WILL ENDORSE TO SUPERVISOR LIVESTOCK YARD NURSE FOR CONTINUITY OF CARE.
--- NOTE | 2019-03-03 18:47 | NUR ---
MS RN NOTE SPOKE WITH SUMIT HAILE ON THE PHONE REGARDING RECOMMENDATION TO FOLLOW UP OUTPATIENT FOR IR CT GUIDED BIOPSY UNDER MODERATE SEDATION. SON VERBALIZED UNDERSTANDING.
--- NOTE | 2019-03-03 19:35 | NUR ---
MS RN NOTES RECEIVED OOB SITTING ON BED SIDE CHAIR,A/O X 4,SPEAK ANDORRAN WITH LITTLE JAMAICAN.WITH RIGHT CHEST WALL PERMA CATH FOR HD ACCESS,DRESSING INTACT,DRY AND CLEAN.WITH SALINE LOCK LEFT AC INTACT AND PATENT.AMBULATE WITH STANDBY ASSIST.DENIES PAIN AT THE MOMENT.CALL LIGHT IN REACH,NEEDS ANTICIPATED.
[2019-03-03 20:00] VITALS: BP 120/67
--- NOTE | 2019-03-04 06:08 | NUR ---
MS RN NOTES SLEPT WELL AT NIGHT.DENIES ANY DISCOMFORTS.NO BLEEDING ON HD CATH SITES.CALL LIGHT IN REACH,NEEDS ATTENDED.WILL ENDORSE TO DAY NURSE FOR CARLOS.
--- NOTE | 2019-03-04 07:25 | NUR ---
MS/RN Patient received Patient received from night guard. A/O X4, vital signs within normal range, denies any pain or discomfort. Eager to be discharged today, informed that we do not at this time have a discharge order. Patient stated understanding. Will continue to monitor and ensure safety. Patient spoken to with recycling technician at bedside.
[2019-03-04 08:00] VITALS: BP 117/67
[2019-03-04 08:06] VITALS: BP 117/67
[2019-03-04] MEDS: FOLIC ACID 1 MG TABLET PO SCH (08:15)
[2019-03-04] MEDS: FERROUS SULFATE (325 MG) 325 MG/TAB TABLET PO SCH ×2 (08:15→17:07)
--- NOTE | 2019-03-04 10:45 | NUR ---
MS/RN S/B Dr Fonseca Seen by Dr Fonseca - discharge to be held today, HDX scheduled for tomorrow.[id number]
--- NOTE | 2019-03-04 11:30 | NUR ---
MS/RN Order Received call from Dr Greene who had spoken to Dr Fonseca. Patient is now in agreement to have second bone marrow biopsy if procedure is carried out under anesthesia. Patient now scheduled for tomorrow in operating room.
--- NOTE | 2019-03-04 12:57 | NUR ---
MS/RN Consent Patient consented for bone marrow biopsy tomorrow at 4:30p.
[2019-03-04 16:00] VITALS: BP_SYST 126; BP_SYST 136; BP_SYST 151; BP_DIAS 54; BP_DIAS 69; BP_DIAS 81
--- NOTE | 2019-03-04 18:35 | NUR ---
MS/RN End note Patient remains in stable condition, all needs attended. Will endorse to steward/stewardess night.
--- NOTE | 2019-03-04 19:30 | NUR ---
RECEIVED PATIENT UP IN CHAIR IN ROOM. AO X 3, ABLE TO MAKE NEEDS KNOWN. NO ACUTE DISTRESS NOTED. DENIES ANY PAIN AT THIS TIME. ABLE TO TRANSFER BACK TO BED WITH STEADY GAIT. IV SITE PATENT, INTACT; FLUSHED. RCW HD CATH INTACT; NO BLEEDING NOTED. SAFETY REMINDERS GIVEN. CALL DEL CID WITHIN EASY REACH. WILL CONTINUE TO MONITOR.
[2019-03-04 20:00] VITALS: BP 105/59
[2019-03-05 06:00] LABS: BASOPHILS % (AUTO) 0.9 % (0.0-2.0); EOSINOPHILS % (AUTO) 4.6 % (0.0-6.0); HEMATOCRIT 31 % (33-45); HEMOGLOBIN 10.1 g/dL (11.5-14.8); MEAN CORPUSCULAR HGB CONC 33 g/dl (31.0-36.0); MEAN CORPUSCULAR VOLUME 94 fL (82-100); MONOCYTES # (AUTO) 0.3 /CMM (0.1-1.30); MONOCYTES % (AUTO) 7.1 % (2.0-12.0); NEUTROPHILS # (AUTO) 2.8 /CMM (1.8-8.9); NEUTROPHILS % (AUTO) 64.4 % (43.0-81.0); PLATELET COUNT (AUTO) 57 /CMM (150-450); RED BLOOD CELL COUNT(AUTO) 3.28 MIL/uL (4.0-5.2); WHITE BLOOD COUNT (AUTO) 4.4 K/uL (4.3-11.0)
[2019-03-05 06:10] LABS: ALANINE AMINOTRANSFERASE 8 U/L (12-78); ALBUMIN 2.5 g/dL (3.4-5.0); ALKALINE PHOSPHATASE 39 U/L (46-116); ASPARTATE AMINOTRANSFERASE 13 U/L (15-37); BILIRUBIN,TOTAL 0.6 mg/dL (0.2-1.0); CALCIUM, SERUM 7.9 mg/dL (8.5-10.1); CARBON DIOXIDE 31 mmol/L (21-32); CHLORIDE 105 mmol/L (98-107); CREATININE 4.6 mg/dL (0.6-1.3); GLUCOSE 92 mg/dL (74-106); POTASSIUM 3.7 mmol/L (3.5-5.1); SODIUM SERUM 142 mmol/L (136-145); TOTAL PROTEIN, SERUM 5.9 g/dL (6.4-8.2)
--- NOTE | 2019-03-05 06:11 | NUR ---
PATIENT ASLEEP, EASILY AROUSABLE. RESPIRATIONS EVEN. NO SIGNS OF PAIN NOTED. NEEDS ATTENDED. SAFETY PRECAUTIONS AND COMFORT MEASURES IN PLACE. WILL GIVE REPORT TO DAY SHIFT FOR CONTINUITY OF CARE.
[2019-03-05 06:20] LABS: UREA NITROGEN, BLOOD 30 mg/dL (7-18)
[2019-03-05 06:47] LABS: BAND % (MANUAL) 1 % (0.0-5.0); EOSINOPHILS % (MANUAL) 4 % (0-4); LYMPHOCYTES % (MANUAL) 30 % (16-48); MONOCYTES % (MANUAL) 6 % (0-11.0); NEUTROPHILS % (MANUAL) 59 (42-76)
--- NOTE | 2019-03-05 07:35 | NUR ---
MS RN RECEIVED ON BED, AWAKE,ALERT,ORIENTED X4,NOT IN ANY FORM OF DISTRESS,RESPIRATIONS EVEN AND UNLABORED,NOSOB NOTED, PATIENT IS HAVING HD AT THIS TIME, WILL MONITOR PATIENT.
[2019-03-05 08:00] VITALS: BP 124/66
--- NOTE | 2019-03-05 09:10 | NUR ---
MS FARIA BREAKFAST SERVED,DUE MEDS GIVEN,TOLERATED WELL.
[2019-03-05] MEDS: FERROUS SULFATE (325 MG) 325 MG/TAB TABLET PO SCH ×2 (09:20→18:08)
[2019-03-05] MEDS: FOLIC ACID 1 MG TABLET PO SCH (09:20)
[2019-03-05 16:00] VITALS: BP 112/92
[2019-03-05] MEDS ORDERED: LIDOCAINE 1% INJ 50 ML MDV IJ ONE (17:30)
[2019-03-05] MEDS ORDERED: LORAZEPAM INJ 2 MG/ML VIAL IV ONE (17:30)
[2019-03-05] MEDS ORDERED: MORPHINE SULFATE INJ 2 MG/ML DISP.SYRIN IM ONE (17:30)
[2019-03-05] MEDS: ONDANSETRON HCL/PF 4 MG/2 ML VIAL IV ONE ×2 (18:00→18:09)
--- NOTE | 2019-03-05 18:00 | NUR ---
MS RN BONE MARROW BIOPSY DONE BY DR. MEDRANO SPECIMEN GIVEN TO LAB.
[2019-03-05 18:40] LABS: BASOPHILS # (AUTO) 0.1 /CMM (0.0-0.2); EOSINOPHILS % (AUTO) 3.4 % (0.0-6.0); HEMATOCRIT 37 % (33-45); HEMOGLOBIN 11.9 g/dL (11.5-14.8); LYMPHOCYTES # (AUTO) 1.2 /CMM (0.8-4.8); LYMPHOCYTES % (AUTO) 22.8 % (20.0-44.0); MEAN CORPUSCULAR HGB CONC 33 g/dl (31.0-36.0); MEAN CORPUSCULAR VOLUME 94 fL (82-100); MONOCYTES # (AUTO) 0.4 /CMM (0.1-1.30); NEUTROPHILS # (AUTO) 3.6 /CMM (1.8-8.9); NEUTROPHILS % (AUTO) 65.8 % (43.0-81.0); PLATELET COUNT (AUTO) 56 /CMM (150-450); RED BLOOD CELL COUNT(AUTO) 3.92 MIL/uL (4.0-5.2); WHITE BLOOD COUNT (AUTO) 5.4 K/uL (4.3-11.0)
--- NOTE | 2019-03-05 18:46 | NUR ---
MS RN ON BED, NO DISTRESS NOTED.
--- NOTE | 2019-03-05 19:30 | NUR ---
MS RN NOTE: PATIENT RESTING IN BED, NO ACUTE DISTRESS NOTED, FAMILY AT BEDSIDE. BREATHING EVEN AND UNLABORED, NO SOB NOTED. IV TO LAC IN PLACE, HD SITE TO RCW IN PLACE, NO BLEEDING NOTED. BED LOCKED AND IN LOWEST POSITION, CALL LIGHT IN REACH. WILL CONTINUE TO MONITOR.
[2019-03-05 20:00] VITALS: BP 110/63
[2019-03-05] MEDS: ACETAMINOPHEN 325 MG TABLET PO PRN (20:28)
--- NOTE | 2019-03-06 01:45 | NUR ---
MS RN NOTE: PATIENT SLEEPING IN BED, NO ACUTE DISTRESS NOTED. BREATHING EVEN AND UNLABORED, NO SOB NOTED. BED LOCKED AND IN LOWEST POSITION, CALL LIGHT IN REACH. WILL CONTINUE TO MONITOR.
--- NOTE | 2019-03-06 06:10 | NUR ---
MS RN NOTE: PATIENT RESTING IN BED, NO ACUTE DISTRESS NOTED. BREATHING EVEN AND UNLABORED, NO SOB NOTED. IV TO LAC IN PLACE, HD SITE TO RCW IN PLACE, NO BLEEDING NOTED. BED LOCKED AND IN LOWEST POSITION, CALL LIGHT IN REACH. WILL ENDORSE TO DAY NURSE TO CONTINUE WITH PLAN OF CARE.
[2019-03-06 08:00] VITALS: BP_SYST 95; BP_SYST 96; BP_DIAS 53; BP_DIAS 56
--- NOTE | 2019-03-06 08:00 | NUR ---
ms rn received on bed,awake,alert,oriented x4,not in any form of distress, respirations even and unlabored,no sob noted, lungs are clear,abdomen soft,positive bowel sounds,denies pain at this time, will monitor patient's condition.
[2019-03-06] MEDS: FERROUS SULFATE (325 MG) 325 MG/TAB TABLET PO SCH ×2 (08:25→17:00)
[2019-03-06] MEDS: FOLIC ACID 1 MG TABLET PO SCH (08:25)
--- NOTE | 2019-03-06 09:00 | NUR ---
MS RN DUE MEDS GIVEN,TOLERATED WELL.
--- NOTE | 2019-03-06 11:00 | NUR ---
MS RN WAS SEEN BY DR. GEORGE Amezcua/ ORDERS MADE AND CARRIED OUT.
[2019-03-06 16:00] VITALS: BP 97/52
--- NOTE | 2019-03-06 17:30 | NUR ---
MS ONCOLOGY NURSE NAVIGATOR INSTRUCTIONS GIVEN AND UNDERSTOOD, PATIENT REFUSED TO TAKE PICTURE AT HER RIGHT CVC, WENT HOME ACCOMPANIED BY SON,ALL NEEDS ATTENDED.
== END 2019-03-06 17:45 | disposition home or self-care (01) | DRG 206 ==
LOC: ER 17:31 → TELE 19:22 → MED 03-02 08:48
PROVIDERS: ADMIT Internal Medicine; ATTEND Internal Medicine
PROC: 5A1D70Z Performance of Urinary Filtration, Intermittent, Less than 6 Hours Per Day (ICD-10-PCS; principal; 2019-03-01)
PROC: 5A1D70Z Performance of Urinary Filtration, Intermittent, Less than 6 Hours Per Day (ICD-10-PCS; 2019-03-03)
PROC: 5A1D70Z Performance of Urinary Filtration, Intermittent, Less than 6 Hours Per Day (ICD-10-PCS; 2019-03-05)
PROC: 07DR3ZX Extraction of Iliac Bone Marrow, Percutaneous Approach, Diagnostic (ICD-10-PCS; 2019-03-05)
DX: T82.838A Hemorrhage due to vascular prosthetic devices, implants and grafts, initial encounter (principal); I13.2 Hypertensive heart and chronic kidney disease with heart failure and with stage 5 chronic kidney disease, or end stage renal disease; D61.818 Other pancytopenia; D69.6 Thrombocytopenia, unspecified; C90.00 Multiple myeloma not having achieved remission; E11.22 Type 2 diabetes mellitus with diabetic chronic kidney disease; N18.6 End stage renal disease; E44.1 Mild protein-calorie malnutrition; E87.5 Hyperkalemia; Z99.2 Dependence on renal dialysis; Y84.9 Medical procedure, unspecified as the cause of abnormal reaction of the patient, or of later complication, without mention of misadventure at the time of the procedure; Y92.89 Other specified places as the place of occurrence of the external cause; M84.411S Pathological fracture, right shoulder, sequela; K74.60 Unspecified cirrhosis of liver; D73.1 Hypersplenism; E66.9 Obesity, unspecified; Z68.27 Body mass index [BMI] 27.0-27.9, adult; I77.6 Arteritis, unspecified; Z87.891 Personal history of nicotine dependence; I50.9 Heart failure, unspecified; M19.90 Unspecified osteoarthritis, unspecified site
CPT/HCPCS: 36415; 71045-TC; 80048-TC; 80053-TC; 83735-TC; 84100-TC; 85025-TC; 85610-TC; 85730-TC; 86706; 87081-TC; 87340; 90935-TC; 97112-TC; 97116-TC; 97530-TC; A6402; A6403; G0378; J2060; J2270; J2405; J3490

== ENCOUNTER 2019-03-11 14:25 | Emergency (ER) | payer OTHER ==
[~2019-03-11] VITALS: Ht 154.9 cm; Wt 76.2 kg
[~2019-03-11 14:25] MED LIST changes: -CALC667C6 PO; +FERR325T23 PO
--- NOTE | 2019-03-11 15:00 | NUR ---
patient sent by Dr. Underwood for dialysis check, in no apparent distress, on room air, breathing evenly andunlabored. Kept comfortable, will continue to monitor accordingly.
--- NOTE | 2019-03-11 15:22 | NUR ---
GROUP CALLED, SEAT MAKER, PAGED TO CALL BACK
[2019-03-11 16:00] VITALS: BP 135/64
--- NOTE | 2019-03-11 16:01 | NUR ---
Patient discharged to home in stable condition. Written and verbal after care instructions given. Patient verbalizes understanding of instruction.
== END 2019-03-11 16:01 | disposition home or self-care (01) ==
LOC: ER 14:35
DX: I13.2 Hypertensive heart and chronic kidney disease with heart failure and with stage 5 chronic kidney disease, or end stage renal disease (principal); E11.22 Type 2 diabetes mellitus with diabetic chronic kidney disease; N18.6 End stage renal disease; I50.9 Heart failure, unspecified; Z99.2 Dependence on renal dialysis; Z90.49 Acquired absence of other specified parts of digestive tract; Z90.710 Acquired absence of both cervix and uterus
CPT/HCPCS: Z7502

== ENCOUNTER 2019-06-17 10:32 | Emergency (ER) | payer OTHER ==
[~2019-06-17] VITALS: Ht 152.4 cm; Wt 81.6 kg
--- NOTE | 2019-06-17 11:01 | NUR ---
BIB DAUGHTER 74 YEAR OLD FEMALE C/O WORSENING BACK PAIN SINCE SHE HAD A GLF 4 DAYS AGO AFTER DIALYSIS. ALERT AND OREINTED X4 BREATHING EVEN AND UNLABORED WITH NO DISTRESS NOTED. SKIN INTACT. AWAITING TO BE SEEN BY
--- NOTE | 2019-06-17 11:02 | NUR ---
DENIES ANY PAIN AT THIS TIME.
--- NOTE | 2019-06-17 12:20 | NUR ---
Patient discharged to home in stable condition. Written and verbal after care instructions given. Patient verbalizes understanding of instruction.
[2019-06-17 12:21] VITALS: BP 144/70
== END 2019-06-17 12:22 | disposition home or self-care (01) ==
LOC: ER 10:37
DX: R07.89 Other chest pain (principal); E11.22 Type 2 diabetes mellitus with diabetic chronic kidney disease; I13.2 Hypertensive heart and chronic kidney disease with heart failure and with stage 5 chronic kidney disease, or end stage renal disease; I50.9 Heart failure, unspecified; N18.6 End stage renal disease; Z99.2 Dependence on renal dialysis; Z90.710 Acquired absence of both cervix and uterus; Z90.49 Acquired absence of other specified parts of digestive tract
CPT/HCPCS: 71100-TC

== ENCOUNTER 2019-11-04 09:29 | Inpatient (IN) | payer OTHER ==
[~2019-11-04] VITALS: Ht 160 cm; Wt 85.8 kg
--- NOTE | 2019-11-04 09:54 | NUR ---
garry 74 YEAR OLD FEMALE CAME FROM DIALYSIS CENTER c/o cough and fever x 4 days, ALERT AND ORIENTED X3, BREATHING EVEN AND UNLABORED WITH NO DISTRESS NOTED. NOTED WITH RIGHT CHEST VASCATH AND LEFT UPPER ARM FISTULA. SKIN WARM TO TOUCH. WAITING TO BE SEEN BY
[2019-11-04 10:39] LABS: APPEARANCE,URINE Slightly Cloudy (CLEAR); BILIRUBIN,URINE SMALL (NEGATIVE); BLOOD, URINE Large Ery/uL (NEGATIVE); COLOR,URINE Dark (YELLOW); KETONES,URINE Negative (NEGATIVE); LEUKOCYTE ESTERASE ,URINE Trace (NEGATIVE); NITRITE, URINE Negative (NEGATIVE); PH,URINE 5.5 (5.0-8.0); PROTEIN,URINE >=300 mg/dl (NEGATIVE); UGLUCOSE Negative (NEGATIVE); UROBILINOGEN,URINE 0.2 EU/dL (0.2)
[2019-11-04 10:44] LABS: RBC,URINE TOO NUMEROUS TO COUN /HPF (0-2)
[2019-11-04 10:46] LABS: BACTERIA,URINE Rare /HPF (None Seen); SQUAMOUS EPITHELIAL CELL,UR Few /HPF (None Seen); WBC,URINE 15-30 /HPF (0-3)
[2019-11-04 10:48] LABS: BASOPHILS % (AUTO) 0.8 % (0.0-2.0); EOSINOPHILS % (AUTO) 0.6 % (0.0-6.0); HEMATOCRIT 37 % (33-45); HEMOGLOBIN 11.6 g/dL (11.5-14.8); LYMPHOCYTES # (AUTO) 0.4 /CMM (0.8-4.8); LYMPHOCYTES % (AUTO) 8.9 % (20.0-44.0); MEAN CORPUSCULAR HGB CONC 32 g/dl (31.0-36.0); MEAN CORPUSCULAR VOLUME 95 fL (82-100); MONOCYTES # (AUTO) 0.4 /CMM (0.1-1.30); MONOCYTES % (AUTO) 8.4 % (2.0-12.0); NEUTROPHILS # (AUTO) 3.8 /CMM (1.8-8.9); NEUTROPHILS % (AUTO) 81.3 % (43.0-81.0); RED BLOOD CELL COUNT(AUTO) 3.88 MIL/uL (4.0-5.2); WHITE BLOOD COUNT (AUTO) 4.7 K/uL (4.3-11.0)
--- NOTE | 2019-11-04 10:53 | NUR ---
construction tech at bedside
[2019-11-04 10:57] LABS: PLATELET COUNT (AUTO) 41 /CMM (150-450)
--- NOTE | 2019-11-04 10:58 | NUR ---
[facility] called regarding pt plt level of 41. made aware
[2019-11-04 11:02] LABS: CARBON DIOXIDE 20 mmol/L (21-32); CHLORIDE 107 mmol/L (98-107); CREATININE 5.9 mg/dL (0.6-1.3); GLUCOSE 121 mg/dL (74-106); POTASSIUM 4.5 mmol/L (3.5-5.1); SODIUM SERUM 141 mmol/L (136-145); UREA NITROGEN, BLOOD 56 mg/dL (7-18)
[2019-11-04 11:15] LABS: ALANINE AMINOTRANSFERASE 8 U/L (12-78); ALBUMIN 2.9 g/dL (3.4-5.0); ALKALINE PHOSPHATASE 42 U/L (46-116); ASPARTATE AMINOTRANSFERASE 21 U/L (15-37); B-TYPE NATRIURETIC PEPTIDE 13781 PG/ML (0-125); BILIRUBIN,DIRECT 0.4 mg/dL (0.0-0.2); BILIRUBIN,TOTAL 1.3 mg/dL (0.2-1.0); TOTAL PROTEIN, SERUM 6.7 g/dL (6.4-8.2)
--- NOTE | 2019-11-04 11:30 | NUR ---
CALLED NURSING SUP FOR TELE BED.
[2019-11-04 12:36] LABS: LYMPHOCYTES % (MANUAL) 7 % (16-48); MONOCYTES % (MANUAL) 9 % (0-11.0); NEUTROPHILS % (MANUAL) 84 (42-76)
--- NOTE | 2019-11-04 13:02 | NUR ---
NURSING SUP GAVE [phone].
--- NOTE | 2019-11-04 13:13 | NUR ---
pt ambulatory with cane, assisted pt to restroom
--- NOTE | 2019-11-04 13:24 | NUR ---
report given to lisa to continue rosibel
--- NOTE | 2019-11-04 13:59 | NUR ---
TRIGONOMETRY TEACHERPHYSICIST NUCLEAR NOTES Received Patient via gurney. A/O x 3, Martiniquais speaking. VS stable with no acute distress. Breathing even and unlabored on room air with no respiratory distress. Denies pain. VS stable with no acute distress. Skin assessment pictures taken and placed in chart. Telemonitor in place and patent reading Sinus Tach with occasional PACs & PVCs with HR-134. Right Upper Chest Permacath in place. 20g PIV on Right Wrist clean, intact, patent and flushing well. Safety precautions in place. Bed locked and set to lowest position with side rails x 2 up. All needs rendered at this time. Call light within reach. Will continue to monitor.
[2019-11-04 16:20] VITALS: BP 120/55
[2019-11-04] MEDS ORDERED: LEVOFLOXACIN 500 MG /D5W 100ML 500 MG in PREMIX 1 EA IV ONE (17:00)
[2019-11-04] MEDS ORDERED: Z GUARD REMEDY 2 OZ OINT TP PRN (17:00)
[2019-11-04] MEDS ORDERED: MAGNESIUM HYDROXIDE 30 ML UDC PO PRN (17:00)
[2019-11-04] MEDS ORDERED: MAG HYDROX/AL HYDROX/SIMETH 30 ML UDC PO PRN (17:00)
[2019-11-04] MEDS ORDERED: ACETAMINOPHEN 325 MG TABLET PO PRN (17:00)
--- NOTE | 2019-11-04 18:19 | NUR ---
HAND LOOM WEAVER NOTES Per Patient request, "something for anxiety". Notified Carin NEWTON, per MD may order Ativan 1mg PO PRN Q6H. Order noted and carried out. Patient crying at this time. Provided comfort measures and snacks. Will continue to monitor.
[2019-11-04] MEDS ORDERED: LORAZEPAM 1 MG TABLET PO PRN (18:30)
--- NOTE | 2019-11-04 19:25 | NUR ---
GINNING OPERATOR CLOSING NOTES Patient is awake, resting in bed and undergoing dialysis at this time. A/O x 3, Romanian speaking. VS stable with no acute distress. Breathing even and unlabored on room air with no respiratory distress. Denies pain. Telemonitor in place and patent reading Sinus Tach with HR-104. Right Upper Chest Permacath in place. 20g PIV on Right Wrist clean, intact, patent and flushing well. Safety precautions in place. Bed locked and set to lowest position with side rails x 2 up. All needs rendered at this time. Call light within reach. Family at bedside. Will endorse plan of care to oncoming shift.
--- NOTE | 2019-11-04 19:30 | NUR ---
RN OPENING NOTES RECEIVED PATIENT FROM BIENVENIDO ESPOSITO. PATIENT AWAKE IN BED, CURRENTLY RECEIVING DIALYSIS AT THIS TIME. FAMILY AT BED SIDE. A/O X 3, VINCENTIAN SPEAKING. PATIENT ABLE TO VERBALIZE NEEDS. ON ROOM AIR, NO SIGNS OF RESPIRATORY DISTRESS, NO SHORTNESS OF BREATH NOTED. TELE READING CURRENTLY ST 106. NO COMPLAINTS OF PAIN OR DISCOMFORT AT THIS TIME. IV SITE #20 G, SL, INTACT, PATENT, NO SIGNS OF INFECTION/INFILTRATION. RIGHT UPPER CHEST PERMACATH IN PLACE. SAFETY PRECAUTIONS IMPLEMENTED; CALL LIGHT WITHIN REACH, BED LOCKED, BILATERAL UPPER SIDE RAILS UP. BED ALARM ON. WILL CONTINUE TO MONITOR.
[2019-11-04 20:00] VITALS: BP 152/51
[2019-11-04 20:50] VITALS: BP 152/51
--- NOTE | 2019-11-04 21:45 | NUR ---
RN NOTES PATIENT CURRENTLY DONE WITH DIALYSIS. DIALYSIS NURSE REPORTED 1.8 L OUT. REPORTED V/S POST DIALYSIS FROM DIALYSIS NURSE: 128/47, PULSE 82, TEMP 97.2, 2O RESPIRATIONS, O2 SAT 96 ON ROOM AIR. WILL CONTINUE TO MONITOR.
[2019-11-04 22:00] VITALS: BP 116/83
[2019-11-05] VITALS: BP 124/64
[2019-11-05] MEDS: HYDROCODONE/APAP 5/325MG 1 EACH TABLET PO PRN ×3 (00:20→19:00)
[2019-11-05 00:24] VITALS: BP 124/64
[2019-11-05 04:00] VITALS: BP 120/48
--- NOTE | 2019-11-05 06:24 | NUR ---
RN CLOSING NOTES PATIENT IS CURRENTLY ASLEEP, EASILY AWAKENED. NO SIGNS OF RESPIRATORY DISTRESS, NO SHORTNESS OF BREATH NOTED, RESPIRATIONS EVEN AND UNLABORED. TELE READING SR 85. NO SIGNS OF FACIAL GRIMACING INDICATING PAIN OR DISCOMFORT AT THIS TIME. IV SITE SL, INTACT AND PATENT, NO SIGNS OF INFECTION/INFILTRATION, FLUSHED. PATIENT KEPT CLEAN, DRY AND COMFORTABLE. RIGHT UPPER CHEST PERMACATH IN PLACE. ALL NEEDS MET ON SHIFT. ALL DUE MEDS GIVEN ORDERED WITH NO ADVERSE EFFECTS. SAFETY PRECAUTIONS IMPLEMENTED; CALL LIGHT WITHIN REACH, BED LOW, BED LOCKED, BILATERAL UPPER SIDE RAILS UP. BED ALARM ON. WILL ENDORSE TO DAY SHIFT NURSE FOR CONTINUITY OF CARE.
[2019-11-05 07:06] LABS: BASOPHILS % (AUTO) 0.8 % (0.0-2.0); EOSINOPHILS % (AUTO) 4.1 % (0.0-6.0); HEMATOCRIT 38 % (33-45); LYMPHOCYTES # (AUTO) 0.7 /CMM (0.8-4.8); MEAN CORPUSCULAR HGB CONC 32 g/dl (31.0-36.0); MEAN CORPUSCULAR VOLUME 95 fL (82-100); MONOCYTES # (AUTO) 0.5 /CMM (0.1-1.30); MONOCYTES % (AUTO) 10.4 % (2.0-12.0); NEUTROPHILS # (AUTO) 3.4 /CMM (1.8-8.9); NEUTROPHILS % (AUTO) 69.7 % (43.0-81.0); RED BLOOD CELL COUNT(AUTO) 3.99 MIL/uL (4.0-5.2); WHITE BLOOD COUNT (AUTO) 4.8 K/uL (4.3-11.0)
[2019-11-05 07:16] LABS: CALCIUM, SERUM 7.5 mg/dL (8.5-10.1); CARBON DIOXIDE 26 mmol/L (21-32); CHLORIDE 105 mmol/L (98-107); CREATININE 4.7 mg/dL (0.6-1.3); GLUCOSE 102 mg/dL (74-106); POTASSIUM 4.1 mmol/L (3.5-5.1); SODIUM SERUM 141 mmol/L (136-145); UREA NITROGEN, BLOOD 42 mg/dL (7-18)
[2019-11-05 07:17] LABS: PLATELET COUNT (AUTO) 45 /CMM (150-450)
[2019-11-05 07:47] LABS: EOSINOPHILS % (MANUAL) 3 % (0-4); LYMPHOCYTES % (MANUAL) 14 % (16-48); MONOCYTES % (MANUAL) 3 % (0-11.0); NEUTROPHILS % (MANUAL) 80 (42-76)
--- NOTE | 2019-11-05 08:10 | NUR ---
ms rn received on bed,awake,alert,oriented x3,not in any form of distress,respirations even and unlabored,no sob noted.lungs are diminished,abdomen soft,positive bowel sounds,denies pain at this time.all needs attended.
[2019-11-05 08:19] VITALS: BP 123/50
--- NOTE | 2019-11-05 09:00 | NUR ---
ms rodríguez breakfast served,due meds given,tolerated well.
--- NOTE | 2019-11-05 13:00 | NUR ---
ms rn on bed,no distress noted.
[2019-11-05 15:59] VITALS: BP 120/58
--- NOTE | 2019-11-05 19:15 | NUR ---
TELE/RN NOTES RECEIVED PT. LYING IN BED. PT. IS AWAKE, ALERT AND ORIENTED X3. BREATHING EVEN AND UNLABORED ON ROOM AIR. NO SOB, RESPIRATORY DISTRESS OR COMPLAINTS OF PAIN NOTED AT THIS TIME. PT. WITH EXTERNAL POST GRADUATE INTERN PRESENT AND INTACT. CURRENT RHYTHM = SINUS RHYTHM HR 84 WITH PAC AND PVC. PT. WITH RIGHT CHEST WALL PERMACATH PRESENT AND INTACT. PT. WITH FAMILY MEMBERS PRESENT AT BEDSIDE. BED LOCKED AND IN LOWEST POSITION, SIDE RAILS UP X3, BED ALARM ON, CALL LIGHT WITHIN REACH, WILL CONTINUE TO MONITOR.
[2019-11-05 20:00] VITALS: BP 102/44
[2019-11-06] MEDS: HYDROCODONE/APAP 5/325MG 1 EACH TABLET PO PRN ×3 (00:45→09:30)
[2019-11-06] MEDS: ONDANSETRON HCL/PF 4 MG/2 ML VIAL IVP PRN ×2 (05:18→09:30)
--- NOTE | 2019-11-06 05:18 | NUR ---
TELE/RN NOTES PT. COMPLAINING OF CHEST PAIN, BACK PAIN AND MUSCLE PAIN 04/17. PT. VITAL SIGNS STABLE. PT. NORMAL SINUS RHYTHM HR 89. ADMINISTERED TO PT. PRN NORCO AND ZOFRAN ORDERED. WILL CONTINUE TO MONITOR.
--- NOTE | 2019-11-06 06:30 | NUR ---
TELE/RN NOTES PT. IS LYING IN BED RESTING. EASILY AROUSABLE TO NAME. BREATHING EVEN AND UNLABORED ON ROOM AIR. NO SOB, RESPIRATORY DISTRESS OR COMPLAINTS OF PAIN NOTED AT THIS TIME. PT. STATES PAIN MEDICATION WAS EFFECTIVE AND HAS NO MORE PAIN. PT. WITH EXTERNAL MINE ENVIRONMENTAL ENGINEER PRESENT AND INTACT. CURRENT RHYTHM = SINUS RHYTHM HR 93 WITH PAC AND PVC. ALL PT. NEEDS MET. BED LOCKED AND IN LOWEST POSITION, SIDE RAILS UP X3, BED ALARM ON, CALL LIGHT WITHIN REACH, WILL ENDORSE TO DAYSHIFT NURSE FOR CONTINUITY OF CARE.
[2019-11-06 08:00] VITALS: BP 100/50
--- NOTE | 2019-11-06 08:15 | NUR ---
ms rn received on bed, awake,alert,oriented x3,not in any form of distress, respirations even and unlabored,no sob noted, lungs are diminished,abdomen soft,positive bowel sounds,denies pain at this time, all needs attended.
--- NOTE | 2019-11-06 09:10 | NUR ---
ms rodríguez breakfast served,due meds given, tolerated well.
--- NOTE | 2019-11-06 11:00 | NUR ---
ms rn was seen by dr. marta santiago/ evette to go home after hd.
--- NOTE | 2019-11-06 12:00 | NUR ---
ms rn hd started, tolerating well.
[2019-11-06] MEDS ORDERED: LEVO500T75 PO (12:41)
--- NOTE | 2019-11-06 14:03 | NUR ---
ms rn on bed, no distress noted, hd in progress.
[2019-11-06 16:00] VITALS: BP 129/67
--- NOTE | 2019-11-06 16:00 | NUR ---
ms marcos hd done w/ 1000ml output,tolerated well.
[2019-11-06] MEDS ORDERED: LEVOFLOXACIN 250 MG /D5W 50 ML 250 MG in PREMIX 1 EA IV SCH (17:00)
--- NOTE | 2019-11-06 18:00 | NUR ---
ms rn patient went home accompanied by family , discharge instructions given and understood, w/ rx of levaquin forwarded to rx of choice,all needs attended.
== END 2019-11-06 18:15 | disposition home or self-care (01) | DRG 139 ==
LOC: ER 09:32 → TELE 13:43 → MED 11-06 09:21
PROVIDERS: ADMIT Internal Medicine; ATTEND Internal Medicine
PROC: 5A1D70Z Performance of Urinary Filtration, Intermittent, Less than 6 Hours Per Day (ICD-10-PCS; principal; 2019-11-04)
DX: J15.9 Unspecified bacterial pneumonia (principal); E43 Unspecified severe protein-calorie malnutrition; I13.2 Hypertensive heart and chronic kidney disease with heart failure and with stage 5 chronic kidney disease, or end stage renal disease; E11.22 Type 2 diabetes mellitus with diabetic chronic kidney disease; D69.6 Thrombocytopenia, unspecified; E87.2 Acidosis; E88.09 Other disorders of plasma-protein metabolism, not elsewhere classified; D47.2 Monoclonal gammopathy; N18.6 End stage renal disease; N39.0 Urinary tract infection, site not specified; J06.9 Acute upper respiratory infection, unspecified; Z99.2 Dependence on renal dialysis; I50.33 Acute on chronic diastolic (congestive) heart failure; E66.9 Obesity, unspecified; Z87.891 Personal history of nicotine dependence; Z90.710 Acquired absence of both cervix and uterus; Z90.49 Acquired absence of other specified parts of digestive tract; Z68.33 Body mass index [BMI] 33.0-33.9, adult; N05.9 Unspecified nephritic syndrome with unspecified morphologic changes
CPT/HCPCS: 36415; 71045-TC; 80048-TC; 80076-TC; 81000-TC; 83605-TC; 83880; 84484-TC; 85025-TC; 85730-TC; 86706; 87040-TC; 87081-TC; 87340; 90935-TC; 93307-TC; A4216; G0378; J1956; J2405; J7050